=== PATIENT | male | born 1980 | race Caucasian/White ===

== ENCOUNTER 2023-11-27 15:03 | Emergency (ER) | payer OTHER, SELFPAY ==
[2023-11-27 15:23] VITALS: BP 114/79; PULSE 78; O2SAT 94
--- NOTE | 2023-11-27 15:27 | ED.OVERDOSE ---
HPI - Overdose General Chief Complaint: Overdose Stated Complaint: FOUND ASLEEP ON BENCH,ETOH/SUBS ON BOARD PER EMS Time Seen by Provider: 11/27/23 15:20 Source: EMS Mode of arrival: EMS Limitations: other History of Present Illness HPI Narrative: According to EMS, patient was found sleeping by bystanders on a bench. Patient very somnolent but arousable, patient admits to using drugs. Patient states that he thought he purchased oxycodone from the street but likely in the up being a different kind of substance. Patient denies SI or HI. Patient states that he was just trying to enjoy his day. Related Data Allergies Allergy/AdvReac Type Severity Reaction Status Date / Time ibuprofen [From MOTRIN] Allergy Severe BLEEDING Unverified 07/09/20 19:38 ULCER Review of Systems Review of Systems: Constitutional : No Weight loss, No Fever, No Chills, No Night Sweats, No Fatigue, No Malaise ENT/Mouth : No Hearing loss, No Ear Pain, No Nasal Congestion, No Sinus Pain, No Hoarseness, No sore throat, No Rhinorrhea, No Swallowing Difficulty Eyes: No Eye Pain, No Swelling, No Redness, No Foreign Body, No Discharge, No Vision Changes Cardiovascular : No Chest Pain, No SOB, No Dyspnea on Exertion, No Orthopnea, No Edema, No Palpitations Respiratory : No Cough, No Sputum, No Wheezing, No Smoke Exposure, No Dyspnea Gastrointestinal : No Nausea, No Vomiting, No Diarrhea, No Constipation, No abdominal Pain, No Hematochezia, No Melena Genitourinary : no irregular bleeding, No Dysuria, No Urinary Frequency, No Hematuria, No Urinary Incontinence, No Urgency, No Flank Pain, No Urinary Flow Changes, No Hesitancy Musculoskeletal : No joint pain, No Myalgias, No Joint Swelling Skin : No Skin Lesions, No rash Neuro : No Weakness, No Numbness, No Paresthesias, No Loss of Consciousness, No Dizziness, No Headache Psych : Denies SI or HI, admits to substance abuse Heme/Lymph: No Bruising, No Bleeding,No Lymphadenopathy Endocrine : No Polyuria, No Polydipsia, No Temperature Intolerance PMFSH Past Medical History Medical History (Updated 11/27/23 @ 15:34 by Mila Alberts MD) Polysubstance abuse Social History Social History Advance Directives: No Advance Directives Information Provided: No Physical Exam Vital Signs: Vital Signs: Last Vital Signs Pulse 68 11/27/23 15:40 Resp 16 11/27/23 15:40 BP 128/87 11/27/23 15:40 Pulse Ox 98 11/27/23 15:40 O2 Del Method Nasal Cannula 11/27/23 15:40 Oxygen Flow Rate 2 11/27/23 15:40 BMI result Body Mass Index 25.4 Const: Other: Appearance: Alert. Very somnolent, easily arousable Eyes: Pupils equal, round and reactive to light. Pinpoint pupils bilaterally, reactive to light ENT: Pharynx normal. Neck: Normal inspection. Neck supple. No lymph nodes noted. No crepitus CVS: Normal heart rate and rhythm. Pulses normal. Normal S1 and S2 Respiratory: No respiratory distress. Breath sounds normal. No Wheezing. No rales oxygen saturation drops to 83% on 4 L nasal cannula, when asked to wake up, oxygen saturation returns to 99% Abdomen: Soft and nontender. No rigidity. No distention. Skin: Skin warm and dry. Normal skin color. Normal skin turgor. Extremities: No lower extremity edema. No Lacerations. No Rash Neuro: Somnolent Moving all extremities. No slurred speech. CN 2 through 12 grossly intact Psych: calm, cooperative Course Course Course Narrative: -patient being changed over to hospital close -patient very somnolent, when he falls asleep, oxygen saturation drops to the low 80s, patient on 4 L of oxygen -I discussed with the patient's nurse that if the patient keeps dropping his oxygen saturation, he will need to be given Narcan intranasal -CARE/SUDE eval pending -when patient is ready for discharge, patient will be given home Narcan. Medical Decision Making Medical Decision Making MDM Narrative: -patient has been in the emergency room for almost 2 hours. Oxygen saturation 94-96% on room air. Patient is alert oriented x3. Patien states that he does not want to be seen by the care team, will accept to take home Narcan. -discussed with the patient that given how he arrived to emergency room, we should keep him a bit longer. Patient did not get any Narcan, patient states that he feels well and would like to be discharged home. Differential Diagnosis Differential Diagnoses: The differential diagnosis associated with the presentation includes (Polysubstance abuse) Admission/Observation Consideration of admission/observation: Escalation of care including admission/observation considered (Patient's oxygen saturation keeps dropping, needs nasal cannula assistance, admission considered) Critical Care Time Critical Care Time Critical Care Time: Yes Total Critical Care Time: 60 Attestation: I have personally provided critical care time. Time includes review of lab data, radiology results, discussion with consultants, and monitoring for potential decompensation. Intervention performed as documented. Discharge Plan Discharge Clinical Impression: Overdose Patient Disposition: Left Against Medical Advice Instructions: Adult Overdose (ED) Additional Instructions: Please follow-up with your primary care physician tomorrow. If you have any worsening or new symptoms, please return to the emergency room or call 911
[2023-11-27 15:40] VITALS: BP 128/87; PULSE 68; RESP 16; O2SAT 98; BMI 25.4
[2023-11-27 16:00] VITALS: BP 147/88; PULSE 86; RESP 12; TEMP 36.6; O2SAT 99
--- NOTE | 2023-11-27 16:03 | MHC.RECOVRN ---
Attempted to meet with pt in ED11 after consult placed for SUDE. Pt brought in by EMS after bystander called bc pt found sleeping on a bench in [place]. Reportedly, pt used Klonopin, Percocet, alcohol, and marijuana. Pt sitting in bed, quite somnolent but will wake to voice. Pt unable to engage in conversation as he repeatedly falls back to sleep. Pt upset he is in the hospital. Pt reports he was in recovery for 9 months and used today to take a break from life. Pt unable to continue conversation. Pts RN and CARE Team aware.
--- NOTE | 2023-11-27 18:18 | PC.NURSE ---
Pt d/c from hospital via police custody
== END 2023-11-27 18:19 | disposition left against medical advice (07) ==
PROVIDERS: Emergency Provider Emergency Medicine
DX: T40.2X1A Poisoning by other opioids, accidental (unintentional), initial encounter (principal); Y92.9 Unspecified place or not applicable
CPT/HCPCS: 99284

== ENCOUNTER 2024-01-30 11:24 | Emergency (ER) | payer OTHER, SELFPAY ==
[2024-01-30 11:45] VITALS: BP 149/94; PULSE 116; O2SAT 96; BMI 25.8
--- NOTE | 2024-01-30 11:56 | PC.NURSE ---
Pt presents to ED via EMS. EMS reports PD found pt unresponsive and not breathing, was administered 8mg of narcan via IN by PD and ventilated with BVM by EMS. Pt admitted to using 1 bag of heroin to EMS. Pt is alert and oriented at this time, breathing even and unlabored, WNL. Skin warm and dry. Pt is uncooperative to any vitals, assessment and change room attendant, refusing adamantly. Dr. Aldrich and 2 RNs attempted to talk to and assess pt. Pt continued to say he does not want to be here, agreed to stay for 30 mins obs. Pt becomes agitated, more calm when left alone. RN watching pt, remains alert and breathing normal at this time. [employer] narcotic officer at bedside with pt for brief period of time.
[2024-01-30 12:08] VITALS: RESP 16
--- NOTE | 2024-01-30 12:12 | PC.NURSE ---
Pt continues to sit on edge of bed and look around. Remains alert with normal resp drive. No changes in status at this time. Pt continues to refuse vitals or further assessment.
--- NOTE | 2024-01-30 12:13 | ED.OVERDOSE ---
HPI - Overdose General Chief Complaint: Overdose Stated Complaint: OD,NARCAN GIVEN W/GOOD RESULT PER EMS Time Seen by Provider: 01/30/24 11:31 Source: patient and EMS Mode of arrival: EMS Limitations: no limitations History of Present Illness HPI Narrative: patient received 8mg of narcan by police after having an opiate overdose, patient only willing to stay 1 hour for observation complaint: accidental overdose Onset (ago): minute(s) Context: Accidental Overdose: wanted to get high Related Data Allergies Allergy/AdvReac Type Severity Reaction Status Date / Time ibuprofen [From MOTRIN] Allergy Severe BLEEDING Unverified 01/30/24 11:55 ULCER Review of Systems Review of Systems: Yes all other systems are reviewed and are negative Neurologic: Denies Sensory deficit (Neuro) PMFSH Past Medical History Medical History Polysubstance abuse Social History Social History Unable to assess alcohol history related to: Refusing to respond Advance Directives: No Physical Exam Vital Signs: Vital Signs: Last Vital Signs Resp 15 01/30/24 12:20 BMI result Body Mass Index 25.8 Const: Other: male looking unkept and older than stated age Nutritional Appearance: average body habitus Orientation/consciousness: oriented to person and patient oriented x3 Limitations: no limitations HEENT: Head: Yes normal to inspection Ears: external ears normal General nose exam: Normal external nose present Mouth: Normal oral and palatal mucosa present and oropharynx normal Throat: Yes posterior oropharynx normal Eyes: General: appearance normal, both eyes and all related structures Neck: Other: supple Neck: Yes normal visual inspection Chest: Chest palpation & inspection: normal inspection of the chest Resp: Auscultation: clear to auscultation bilaterally Cardio: Jugular venous distension: no JVD Rate: regular rate Rhythm: regular rhythm Heart sounds: S1 normal heart sound present and S2 normal heart sound present GI: Inspection: Yes normal to inspection Palpation (GI): Soft to palpation, nontender and No hepatosplenomegaly present Auscultation: normal bowel sounds : General: Yes no CVA tenderness Back/Spine/Pelvis: Back: no CVA tenderness Skin: General skin exam: no rashes or lesions noted Neuro: General: oriented to person and patient oriented x3 Cranial nerves: Yes CN's II-XII intact bilaterally Motor exam (neuro): 5/5 motor strength present throughout Sensory Exam: No Sensory deficit (Neuro) Extrem: General: Yes normal to inspection Psych: Appearance: grossly normal Course Reevaluation(s) Reevaluation #1: patient has remained awake will give narcan to go home with Time: 12:17 Medical Decision Making Differential Diagnosis Differential Diagnoses: The differential diagnosis associated with the presentation includes (opiate overdose, respiratory arrest) Admission/Observation Consideration of admission/observation: Escalation of care including admission/observation considered (upon arrival patient considered for admission) Consult Healthcare Provider Management of the patient was discussed with: Behavioral Health Provider External Record Review External record reviewed: Outpatient record Prescription Management I considered prescription management with: Other (will discharge patient with narcan) Chronic Conditions Patient?s care impacted by: Other (polysubstance abuse) Social Determinants Patient?s care significantly limited by Social Determinants of Health including: Low income and Alcoholism and drug addiction in family Discharge Plan Discharge Clinical Impression: Polysubstance abuse, Drug overdose Patient Disposition: Home, Self-Care Instructions: Polysubstance Abuse (ED), Adult Overdose (ED) Referrals: Physician,Unknown J [Primary Care Provider] - 3 days Print Language: [place]
[2024-01-30 12:20] VITALS: RESP 15
[2024-01-30] MEDS: Ondansetron ODT 4 MG TAB.RAPDIS TRANSLINGU (12:27)
[2024-01-30] MEDS: Naloxone HCl Nasal TAKE HOME 4 MG SPRAY 8 MG NOSTRILALT (12:27)
--- NOTE | 2024-01-30 12:27 | PC.NURSE ---
Pt allows for vitals at this time. Denies any SI or HI. Reports he took one bag of heroin today and doesn't understand how this happened. Pt reports complaints of nausea and throat pain 3/, medicated per MAR, VSS, Pt alert and oriented, reports he does not want to stay any longer.
[2024-01-30 12:29] VITALS: BP 131/91; PULSE 99; RESP 17; TEMP 37.1; O2SAT 96
== END 2024-01-30 13:20 | disposition home or self-care (01) ==
PROVIDERS: Emergency Provider Emergency Medicine
DX: F19.10 Other psychoactive substance abuse, uncomplicated (principal); T65.91XA Toxic effect of unspecified substance, accidental (unintentional), initial encounter; Y92.9 Unspecified place or not applicable
CPT/HCPCS: 99283; 99284

== ENCOUNTER 2024-01-31 03:16 | Inpatient (IN) | payer OTHER, SELFPAY ==
[2024-01-31] VITALS (13 sets, daily range): BP systolic 103–155; BP diastolic 73–91; PULSE 91–117; RESP 12–25; TEMP 36.3–37.8; O2SAT 79–97; BMI 27.4
--- NOTE | ~2024-01-31 | CT_ITS ---
EXAMINATION: CT HEAD WITHOUT CONTRAST CLINICAL INFORMATION: Altered mental status, opiate overdose, complains of headache COMPARISON: None available. TECHNIQUE: Contiguous axial imaging was performed from the skull base to vertex without intravenous administration of contrast. This CT examination was performed using dose optimization techniques as appropriate, variously including the following: *Automated exposure control *Adjustment of mA and/or kV according to patient size (this includes techniques or standardized protocols for targeted exams where dose is matched to indication/reason for exam; i.e. extremities or head) *Use of iterative reconstruction technique DLP: 1189.28 mGy-cm FINDINGS: Ventricles, sulci and cisterns are normal. There is no midline shift, no abnormal intra- or extra- axial fluid accumulation. Cabrera and white matter differentiation is normal. Bone window images show no evidence of skull fracture. A prominent air-fluid level is seen filling the posterior half of right maxillary sinus. CT/CT head/brain wo IV con IMPRESSION: 1. Normal CT scan of the brain. 2. No intracranial hemorrhage or skull fracture is seen. 3. No evidence of space occupying lesion could be found. 4. The current plain CT scan of the brain shows no diagnostic evidence of acute cerebral infarction. 5. Acute right maxillary sinusitis is seen.
--- NOTE | ~2024-01-31 | CT_ITS ---
EXAMINATION: CT ANGIOGRAM OF THE CHEST WITH AND WITHOUT CONTRAST (CT PULMONARY ANGIOGRAM FOR PE) CLINICAL INFORMATION: Reason for Exam Opiate overdose, hypoxic R/O pneumonia, PE COMPARISON: None available. TECHNIQUE: Prior to contrast administration, noncontrast localization images were obtained. Subsequently, multidetector volumetric imaging was performed from the thoracic inlet to below the diaphragms following the administration of 65 mL Omnipaque 350 intravenous contrast. No contrast reaction reported Sagittal, coronal, and MIP oblique sagittal reformatted images were obtained on the CT workstation, uploaded to PACS, and reviewed. This CT examination was performed using dose optimization techniques as appropriate, variously including the following: *Automated exposure control *Adjustment of mA and/or kV according to patient size (this includes techniques or standardized protocols for targeted exams where dose is matched to indication/reason for exam; i.e. extremities or head) *Use of iterative reconstruction technique Total exam dose-length product 513 mGy-cm FINDINGS: Motion artifact technically degrades image quality. QUALITY OF STUDY/CONTRAST BOLUS: Suboptimal. PULMONARY ARTERIES: No central filling defect seen. THORACIC AORTA: No aneurysm. LUNG: Extensive multifocal bilateral airspace disease and consolidation involving all 5 lobes. There is evidence of air bronchograms in the right upper lobe, right middle lobe and right lower lobe.. Central airways are patent. PLEURA: Small bilateral pleural effusions. MEDIASTINUM: Imaged thyroid gland is heterogeneous. Normal heart size. No pericardial effusion. No hilar or mediastinal lymphadenopathy. No evidence of septal bowing or right heart strain. CORONARY ARTERY CALCIFICATION: None visualized on this study. CHEST WALL/AXILLA: No axillary or internal mammary lymphadenopathy. OSSEOUS STRUCTURES: No destructive bone lesions. UPPER ABDOMEN: Marked gastric distention. 1.4 cm splenic hypodensity. No reflux of contrast into the hepatic veins to suggest elevated right heart pressures. CT/CT angio chest PE protocol IMPRESSION: Technically limited study due to motion artifact and suboptimal contrast bolus timing. Widespread severe multifocal pneumonia. Small bilateral pleural effusions. Marked gastric distention. VTE: indeterminate
[2024-01-31 03:22] LABS: Glucose, Whole Blood 267 mg/dL (60-115)
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
--- NOTE | 2024-01-31 07:21 | PC.NURSE ---
this RN resumed care of pt at this time. tech found pt to be satting at 79% on RA w/ a good pleth on the monitor and a correct position of finger probe. per previous RN, pt was resting at 93% on 4L via NC. NC was found on the back of the bed - when asking pt why he removed NC - he states that he does not know. pt placed on 6L via NC at this time - resting at 94%. no sob/wob noted. pt seemingly lethargic when responding to questions. a&ox2 - unaware on where he is or what year it is. otherwise vss aside from being slightly sinus tach on the monitoring manager - HR between 100-110. pt resting comfortably in bed w/ oxygen in place. respirations even and unlabored. ED provider aware of situation. plan of care ongoing. call chavarria placed within reach.
--- NOTE | 2024-01-31 07:30 | ECG_ITS ---
Test Reason : ams Blood Pressure : / mmHG Vent. Rate : 110 BPM Atrial Rate : 110 BPM P-R Int : 146 ms QRS Dur : 092 ms QT Int : 338 ms P-R-T Axes : 000 147 -14 degrees QTc Int : 457 ms Sinus tachycardia Left posterior fascicular block Abnormal QRS-T angle, consider primary T wave abnormality Abnormal ECG No previous ECGs available Referred By: Samy Dejesus Electronically Signed By:YOLI SCOTT MD
[2024-01-31 08:06] LABS: Venous Blood Gas Refer to POC result
[2024-01-31 08:07] LABS: VBG Base Excess -2.2 mmol/L; VBG HCO3 23 mmol/L (22-26); VBG pCO2 43 mmHg; VBG pH 7.34 (7.32-7.43); VBG pO2 53 mmHg
[2024-01-31 08:25] LABS: B Type Natriuretic Peptide 20 pg/mL (<100)
[2024-01-31 08:26] LABS: Troponin-I High Sensitivity 19.5 ng/L (<3.5-35.0)
[2024-01-31] MEDS: 0.9 % Sodium Chloride 1,000 ML 999 ML IV (08:41)
[2024-01-31] MEDS: Piperacillin Sodium/Tazobactam 4.5 GM in 0.9 % Sodium Chloride 100 ML IV ×3 (09:10→20:52)
--- NOTE | 2024-01-31 09:15 | PC.NURSE ---
delay in abx administration d/t pt being a difficult stick - abx now administered per provider order. pt remains at 6L via NC - resting at 95%. no sob/wob noted. pt positioned upright to promote patent airway. respirations remain even and unlabored. pt waiting to go to CT. plan of care ongoing. call chavarria placed within reach.
[2024-01-31 09:44] LABS: Basophils Absolute Auto 0.1 X10*3/uL (0.0-0.2); Basophils Percent Auto 0.4 % (0-2); Eosinophils Percent Auto 0.1 % (0-4); Hematocrit 43.3 % (42.0-52.0); Hemoglobin 14.2 g/dl (14.0-18.0); Imm Gran Abs Auto 0.07 X10*3/uL (0.00-0.03); Imm Gran Pct Auto 0.4 % (0.0-0.4); Lymphocytes Absolute Auto 0.9 X10*3/uL (1.2-4.9); Lymphocytes Percent Auto 4.6 % (20-40); MANUAL DIFF FLAG SCAN; Mean Corpuscular HGB Conc 32.8 g/dl (31.0-36.0); Mean Corpuscular Hemoglobin 31.3 pg (27.0-33.0); Mean Corpuscular Volume 95.6 fL (80.0-98.0); Mean Platelet Volume 11.8 fL (9.4-12.4); Monocytes Absolute Auto 0.8 X10*3/uL (0.1-1.2); Neutrophils Absolute Auto 17.4 x10*3/uL (2.0-8.3); Neutrophils Percent Auto 90.5 % (45-73); Platelet Count 154 X10*3/uL (160-400); Red Blood Count 4.53 X10*6/uL (4.60-5.80); Red Cell Distribution Width 14.2 % (11.0-16.0); SCAN SMEAR FLAG 1; White Blood Count 19.2 X10*3/uL (4.8-10.8)
[2024-01-31] MEDS: LORazepam 2 MG/ML VIAL 1 MG IVPUSH (10:01)
--- NOTE | 2024-01-31 10:05 | PC.NURSE ---
pt remains sinus tachy on the automation developer - HR between 11-=120 bpm. denies chest pain/palpations. medication administered per provider order - effectiveness pending. pt speaking with recovery support RNSondra at this time. plan of care ongoing.
[2024-01-31 10:10] LABS: Partial Thromboplastin Time 31.1 SEC (26.0-36.8)
--- NOTE | 2024-01-31 11:00 | MHC.RECOVRN ---
Met with patient in room 6 in ED. Patient was alert but not oriented to situation. He expressed interest in MAT and outpatient services, I will meet with patient when he is more oriented today for a plan. Discussed with Kelly Parrish APRN
[2024-01-31 11:33] LABS: SLIDE REVIEW VERIFIED
--- NOTE | 2024-01-31 11:43 | PC.NURSE ---
pt remains sinus tachy on the playground monitor - HR between 110-120bpm. otherwise vss. pt is a 1:1 assist when ambulating to the bathroom as pt ambulates w/ an unsteady gait. pt verbalizes feeling sob w/ exertion. slight sob/wob noted while ambulating. pt now resting comfortably back in bed. pt remains on 6L via NC - 91%. respirations even and slightly labored. urine obtained/sent to lab. pt waiting to go to CT. plan of care ongoing. call chavarria placed within reach.
[2024-01-31 11:48] LABS: Alanine Aminotransferase 15 U/L (0-40); Albumin Level 3.8 g/dL (3.5-5.0); Alkaline Phosphatase 38 U/L (39-117); Aspartate Amino Transferase 17 U/L (5-37); Bilirubin Total 0.4 mg/dL (0.0-1.0); Blood Urea Nitrogen 17 mg/dL (9-16); Carbon Dioxide 20 mmol/L (22-29); Chloride 110 mmol/L (96-108); Creatinine Clr Calc Pharmacy 104.6; Estimated Glomerular Filt Rate > 60; Glucose Random 116 mg/dL (60-115); Lipase 12 U/L (8-78); Potassium 4.4 mmol/L (3.3-5.1); Sodium 139 mmol/L (135-145); Total Protein 6.6 g/dL (6.5-8.0)
[2024-01-31 11:50] LABS: Influenza A PCR NEGATIVE (Negative); Influenza B PCR NEGATIVE (Negative); Resp Syncy Virus RNA Qual PCR NEGATIVE (Negative); SARS COV2 PCR INHOUSE NEGATIVE (Negative)
[2024-01-31 12:05] LABS: Amphetamine Screen Urine Not Detected (Not Detect); Barbiturates, Urine Not Detected (Not Detect); Benzodiazepines Screen Urine POSITIVE (Not Detect); Cannabinoid Screen Urine POSITIVE (Not Detect); Cocaine Screen Urine Not Detected (Not Detect); Fentanyl, urine POSITIVE (Not Detect); Opiate Screen Urine POSITIVE (Not Detect); Phencyclidine Screen Urine Not Detected (Not Detect)
[2024-01-31 12:34] LABS: Anion Gap 14 (12-20)
[2024-01-31] MEDS: iohexoL 350 MG/ML 100 ML INFUS..BTL 65 ML IV (13:00)
--- NOTE | 2024-01-31 13:28 | PC.NURSE ---
pt to/from CT at this time. resting comfortably in no apparent distress. pt remains on 6L via NC - 95%. respirations even/unlabored. CT results pending. plan of care ongoing. call chavarria placed within reach.
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
--- NOTE | 2024-01-31 16:03 | PHA.MEDREC ---
Pharmacy Consult ? Medication Reconciliation Pharmacy has completed the medication reconciliation. Spoke with patient. Patient stated he is no longer on suboxone and is now on subutex, he told me he gets it from a clinic, could not recall the dose. I checked pharmacy claims and PDMP but I could not find anything to support this.
[2024-01-31] MEDS: Enoxaparin Sodium 40 MG/0.4 ML SYRINGE SUBCUT (16:24)
[2024-01-31] MEDS: 0.9 % Sodium Chloride Flush 3 ML SYRINGE IVFLUSH (16:26)
--- NOTE | 2024-01-31 19:27 | MHC.EDTECH ---
This tech took over care of patient at 1900,hourly rounds and vitals completed,HR is elevated at 117,temp is 99.1 orally RN made aware.
--- NOTE | 2024-01-31 19:32 | PC.NURSE ---
Assumed care of pt at 19:32, alert and responding to verbal commands. Denies any complaints @ this time. Pending admission. Plan of care ongoing. VSS.
--- NOTE | 2024-01-31 20:16 | MHC.EDTECH ---
Patient urinated 900MLS in urinal
[2024-01-31] MEDS: cloNIDine HCL 0.1 MG TABLET PO (20:53)
--- NOTE | 2024-01-31 21:12 | MHC.EDTECH ---
Hourly rounds and vitals completed,patient's HR is 115,temp 99.8 orally, patient is resting at this time call chavarria in reach
[2024-02-01] VITALS (7 sets, daily range): BP systolic 110–127; BP diastolic 42–74; PULSE 95–103; RESP 18–20; TEMP 36.1–37.1; O2SAT 92–96; BMI 24.3
--- NOTE | 2024-02-01 | ECG_ITS ---
Test Reason : chest pain Blood Pressure : / mmHG Vent. Rate : 094 BPM Atrial Rate : 094 BPM P-R Int : 148 ms QRS Dur : 094 ms QT Int : 364 ms P-R-T Axes : 067 045 027 degrees QTc Int : 455 ms Normal sinus rhythm Normal ECG When compared with ECG of 31-JAN-2024 07:38, Left posterior fascicular block is no longer Present Nonspecific T wave abnormality, improved in Inferior leads Nonspecific T wave abnormality no longer evident in Lateral leads Referred By: Usha Cazaers Electronically Signed By:Prasanth Loja
[2024-02-01] MEDS: Acetaminophen 325 MG TABLET 650 MG PO (02:25)
[2024-02-01] MEDS: Piperacillin Sodium/Tazobactam 4.5 GM in 0.9 % Sodium Chloride 100 ML IV ×4 (02:44→21:43)
[2024-02-01 07:24] LABS: Basophils Absolute Auto 0.1 X10*3/uL (0.0-0.2); Basophils Percent Auto 0.4 % (0-2); Eosinophils Absolute Auto 0.2 X10*3/uL (0.0-0.4); Hemoglobin 12.8 g/dl (14.0-18.0); Imm Gran Abs Auto 0.18 X10*3/uL (0.00-0.03); Imm Gran Pct Auto 0.8 % (0.0-0.4); Lymphocytes Percent Auto 8.9 % (20-40); MANUAL DIFF FLAG SCAN; Mean Corpuscular HGB Conc 32.8 g/dl (31.0-36.0); Mean Corpuscular Hemoglobin 30.7 pg (27.0-33.0); Mean Corpuscular Volume 93.5 fL (80.0-98.0); Mean Platelet Volume 11.1 fL (9.4-12.4); Monocytes Absolute Auto 1.6 X10*3/uL (0.1-1.2); Monocytes Percent Auto 6.8 % (2-11); Neutrophils Absolute Auto 18.6 x10*3/uL (2.0-8.3); Neutrophils Percent Auto 82.1 % (45-73); Platelet Count 135 X10*3/uL (160-400); Red Blood Count 4.17 X10*6/uL (4.60-5.80); SCAN SMEAR FLAG 1; White Blood Count 22.6 X10*3/uL (4.8-10.8)
[2024-02-01 07:33] LABS: Alanine Aminotransferase 12 U/L (0-40); Albumin Level 3.3 g/dL (3.5-5.0); Alkaline Phosphatase 38 U/L (39-117); Anion Gap 9 (12-20); Aspartate Amino Transferase 13 U/L (5-37); Bilirubin Total 0.5 mg/dL (0.0-1.0); Blood Urea Nitrogen 12 mg/dL (9-16); Calcium 8.2 mg/dL (8.4-10.2); Carbon Dioxide 22 mmol/L (22-29); Chloride 106 mmol/L (96-108); Creatinine Clr Calc Pharmacy 134.8; Estimated Glomerular Filt Rate > 60; Glucose Random 114 mg/dL (60-115); Potassium 3.7 mmol/L (3.3-5.1); Sodium 133 mmol/L (135-145); Total Protein 6.1 g/dL (6.5-8.0)
[2024-02-01 07:39] LABS: SLIDE REVIEW VERIFIED
[2024-02-01] MEDS: cloNIDine HCL 0.1 MG TABLET PO (07:54)
[2024-02-01] MEDS: Morphine Sulfate 2 MG/ML CARTRIDGE IVPUSH (09:13)
--- NOTE | 2024-02-01 09:36 | MHC.CM.PN ---
Kennedy met with pt. he said he is a little confused, talked about staying with a brother who lives in [place], [place], and family that used to live in [place]. He said that he just came out of an addiction treatment program, he cannot recall the name of it. KENNEDY will see the pt later, when he may be able to talk more about what his DC plan will be.
[2024-02-01] MEDS: oxyCODONE HCl Immed Release 5 MG TABLET 10 MG PO ×2 (12:03→18:05)
[2024-02-01] MEDS: vancomycin/NS 2,000 MG/500 ML PLAST..BAG 250 MG IV (12:38)
--- NOTE | 2024-02-01 13:29 | HO.ADDICTCON ---
History of Present Illness Date of Service: 02/01/2024 Chief Complaint: overdose Reason for Consult: overdose Sources of Information: patient interviewed and chart reviewed HPI Narrative: Patient is a 43 year old male medically admitted with pneumonia following overdose requiring narcan. Seen by manual arts therapy teacher yesterday while in ED, however patient not able to engage in discussion--confused and still drowsy. Seen this morning in room 474. Patient awake, alert, minimally engaged in interview. Unclear if patient was being evasive in answering questions or if there is a cognitive/processing issue--very difficult to obtain any history. When asked about any withdrawal sx, patient asked what that meant. This field underwriter explained and then patient replied, no . When asked if he was taking any medications for opiate use, he replied, I don't know where my Klonopin or Gabapentins went . When asked specifically about suboxone or methadone, he reported previously taking Subutex, but then stated it was no longer covered. Unclear what happened. [facility] shows last suboxone fill 09/2023. Patient inquiring about pneumonia, this field underwriter provided brief explanation about overdose as a contributing factor. During entirety of interview, patient reminded to leave NC in as he repeatedly took it off. This field underwriter attempted to ask additional questions, however patient stated, I've had a long day, I'm really tired . Encouraged patient to reach out to nursing if he should experience any withdrawal sx (provided examples). Patient nodded. During evaluation, patient seemed anxious, but not restless. No yawning, diaphoresis, rhinorrhea, lacrimation noted. Medical Evaluation Reviewed: Yes Review of Systems Review of Systems Yes Other (patient non participatory) Diagnostics Vital Signs (24Hr): Vital Signs - 24 hr 01/31/24 16:26 01/31/24 19:25 01/31/24 20:50 Temperature 100.0 F 99.1 F Pulse Rate 117 H 117 H 91 Respiratory Rate 20 22 H Blood Pressure 103/75 132/75 125/82 Pulse Oximetry 91 L 93 Oxygen Delivery Method Nasal Cannula Nasal Cannula Oxygen Flow Rate 6 6 01/31/24 21:09 01/31/24 23:18 02/01/24 04:00 Temperature 99.8 F 99.5 F 97.7 F Pulse Rate 115 H 109 H 103 H Respiratory Rate 22 H 22 H 18 Blood Pressure 124/78 122/81 118/73 Pulse Oximetry 93 94 92 Oxygen Delivery Method Nasal Cannula Nasal Cannula Nasal Cannula Oxygen Flow Rate 6 6 6 02/01/24 06:51 02/01/24 07:01 02/01/24 11:25 Temperature 98.8 F 97.1 F 97.0 F Pulse Rate 100 95 95 Respiratory Rate 20 20 20 Blood Pressure 110/71 116/67 117/74 Pulse Oximetry 95 94 94 Oxygen Delivery Method Nasal Cannula Nasal Cannula Nasal Cannula Oxygen Flow Rate 6 5 5 BMI result Body Mass Index 24.3 Labs 02/01/24 06:55 02/01/24 06:55 Labs: Laboratory Results - last 48 hr 01/31/24 01/31/24 01/31/24 03:16 07:53 08:00 WBC RBC Hgb Hct MCV MCH MCHC RDW Plt Count MPV Immature Gran % (Auto) Neut % (Auto) Lymph % (Auto) [place] % (Auto) Eos % (Auto) Baso % (Auto) Lymph # (Auto) [place] # (Auto) Eos # (Auto) Baso # (Auto) Abs Immat Gran (auto) Absolute Neuts (auto) Absolute Nucleated RBC Nucleated RBC % (auto) Smear Tech's Comments Hold Purple Top APTT VBG pH 7.34 VBG pCO2 43 VBG pO2 53 VBG HCO3 23 VBG O2 Saturation 87.0 VBG Base Excess -2.2 Sodium Potassium Chloride Carbon Dioxide Anion Gap BUN Creatinine Estim Creat Clear Calc Estimated GFR POC Glucose 267 H Random Glucose Lactic Acid 2.0 Calcium Total Bilirubin AST ALT Alkaline Phosphatase Troponin I High Sens 19.5 B-Natriuretic Peptide 20 Total Protein Albumin Lipase Urine Opiates Screen Urine Fentanyl Screen Ur Barbiturates Screen Ur Phencyclidine Scrn Ur Amphetamines Screen U Benzodiazepines Scrn Urine Cocaine Screen U Marijuana (THC) Screen Influenza Type A (PCR) NEGATIVE Influenza Type B (PCR) NEGATIVE RSV RNA Qual (PCR) NEGATIVE SARS-CoV-2 RNA (RT-PCR) NEGATIVE 01/31/24 01/31/24 01/31/24 09:35 09:48 11:23 WBC 19.2 H RBC 4.53 L Hgb 14.2 Hct 43.3 MCV 95.6 MCH 31.3 MCHC 32.8 RDW 14.2 Plt Count 154 L MPV 11.8 Immature Gran % (Auto) 0.4 Neut % (Auto) 90.5 H Lymph % (Auto) 4.6 L [place] % (Auto) 4.0 Eos % (Auto) 0.1 Baso % (Auto) 0.4 Lymph # (Auto) 0.9 L [place] # (Auto) 0.8 Eos # (Auto) 0.0 Baso # (Auto) 0.1 Abs Immat Gran (auto) 0.07 H Absolute Neuts (auto) 17.4 H Absolute Nucleated RBC 0.000 Nucleated RBC % (auto) 0.0 Smear Tech's Comments VERIFIED Hold Purple Top SEE NOTE APTT 31.1 VBG pH VBG pCO2 VBG pO2 VBG HCO3 VBG O2 Saturation VBG Base Excess Sodium 139 Potassium 4.4 Chloride 110 H Carbon Dioxide 20 L Anion Gap 14 BUN 17 H Creatinine 0.89 Estim Creat Clear Calc 104.6 Estimated GFR > 60 POC Glucose Random Glucose 116 H Lactic Acid Calcium 8.0 L Total Bilirubin 0.4 AST 17 ALT 15 Alkaline Phosphatase 38 L Troponin I High Sens B-Natriuretic Peptide Total Protein 6.6 Albumin 3.8 Lipase 12 Urine Opiates Screen Urine Fentanyl Screen Ur Barbiturates Screen Ur Phencyclidine Scrn Ur Amphetamines Screen U Benzodiazepines Scrn Urine Cocaine Screen U Marijuana (THC) Screen Influenza Type A (PCR) Influenza Type B (PCR) RSV RNA Qual (PCR) SARS-CoV-2 RNA (RT-PCR) 01/31/24 02/01/24 11:46 06:55 WBC 22.6 H RBC 4.17 L Hgb 12.8 L Hct 39.0 L MCV 93.5 MCH 30.7 MCHC 32.8 RDW 14.0 Plt Count 135 L MPV 11.1 Immature Gran % (Auto) 0.8 H Neut % (Auto) 82.1 H Lymph % (Auto) 8.9 L [place] % (Auto) 6.8 Eos % (Auto) 1.0 Baso % (Auto) 0.4 Lymph # (Auto) 2.0 [place] # (Auto) 1.6 H Eos # (Auto) 0.2 Baso # (Auto) 0.1 Abs Immat Gran (auto) 0.18 H Absolute Neuts (auto) 18.6 H Absolute Nucleated RBC 0.000 Nucleated RBC % (auto) 0.0 Smear Tech's Comments VERIFIED Hold Purple Top APTT VBG pH VBG pCO2 VBG pO2 VBG HCO3 VBG O2 Saturation VBG Base Excess Sodium 133 L Potassium 3.7 Chloride 106 Carbon Dioxide 22 Anion Gap 9 L BUN 12 Creatinine 0.76 Estim Creat Clear Calc 134.8 Estimated GFR > 60 POC Glucose Random Glucose 114 Lactic Acid Calcium 8.2 L Total Bilirubin 0.5 AST 13 ALT 12 Alkaline Phosphatase 38 L Troponin I High Sens B-Natriuretic Peptide Total Protein 6.1 L Albumin 3.3 L Lipase Urine Opiates Screen POSITIVE H Urine Fentanyl Screen POSITIVE H Ur Barbiturates Screen Not Detected Ur Phencyclidine Scrn Not Detected Ur Amphetamines Screen Not Detected U Benzodiazepines Scrn POSITIVE H Urine Cocaine Screen Not Detected U Marijuana (THC) Screen POSITIVE H Influenza Type A (PCR) Influenza Type B (PCR) RSV RNA Qual (PCR) SARS-CoV-2 RNA (RT-PCR) Imaging Radiology Impressions: ITS Impressions Chest CTA 01/31/24 13:05 IMPRESSION: Technically limited study due to motion artifact and suboptimal contrast bolus timing. Widespread severe multifocal pneumonia. Small bilateral pleural effusions. Marked gastric distention. VTE: indeterminate Head CT 01/31/24 13:05 IMPRESSION: 1. Normal CT scan of the brain. 2. No intracranial hemorrhage or skull fracture is seen. 3. No evidence of space occupying lesion could be found. 4. The current plain CT scan of the brain shows no diagnostic evidence of acute cerebral infarction. 5. Acute right maxillary sinusitis is seen. Mental Status Exam Mental Status Exam Patient Appearance: Appropriate Level of Consciousness: Awake and Alert Patient Behavior: Guarded Mood Description: Anxious Affect Description: Anxious Speech Pattern: Clear Medications Medications Current Medications Acetaminophen (Acetaminophen 325 Mg Tablet) 650 mg PO Q6H PRN PRN Reason: Pain, Mild (Pain Scale 1-3) Last Admin: 02/01/24 02:25 Dose: 650 mg Albuterol Sulfate (Albuterol Sulfate (0.083%) 2.5 Mg/3 Ml Vial.Neb) 2.5 mg INHALE Q6H PRN PRN Reason: wheezing Clonidine HCl (Clonidine Hcl 0.1 Mg Tablet) 0.1 mg PO BID RUSSELL; Protocol Last Admin: 02/01/24 07:54 Dose: 0.1 mg Enoxaparin Sodium (Enoxaparin Sodium 40 Mg/0.4 Ml Syringe) 40 mg SUBCUT Q24H [facility]SELL Last Admin: 01/31/24 16:24 Dose: 40 mg Piperacillin Sod/Tazobactam (Sod 4.5 gm/ Sodium Chloride) 100 mls @ 200 mls/hr IV Q6H [facility] Last Infusion: 02/01/24 09:14 Dose: Infused Vancomycin HCl (Vancomycin/Ns) 2,000 mg in 500 mls @ 250 mls/hr IV ONCE ONE Stop: 02/01/24 13:59 Last Admin: 02/01/24 12:38 Dose: 250 mls/hr Lorazepam (Lorazepam 0.5 Mg Tablet) 0.25 mg PO Q8H PRN PRN Reason: anxiety/restlessness Ondansetron HCl (Ondansetron Hcl 4 Mg/2 Ml Vial) 4 mg IVPUSH Q8H PRN PRN Reason: Nausea and Vomiting Oxycodone HCl (Oxycodone Hcl Immed Release 5 Mg Tablet) 10 mg PO Q6H PRN PRN Reason: withdrawal Last Admin: 02/01/24 12:03 Dose: 10 mg Pharmacy Consult (Consult Rx Vancomycin Dosing) 1 each MISCELLANE DAILY PRN PRN Reason: Consult order Sodium Chloride (0.9 % Sodium Chloride Flush 3 Ml Syringe) 3 ml IVFLUSH [facility] Last Admin: 02/01/24 07:54 Dose: Not Given Allergies Allergies Allergy/AdvReac Type Severity Reaction Status Date / Time ibuprofen [From MOTRIN] Allergy Severe BLEEDING Verified 01/31/24 03:19 ULCER Assessment & Plan Assessment & Plan (1) Narcotic overdose: Qualifiers: Encounter type: initial encounter Injury intent: accidental or unintentional Qualified Code(s): T40.601A - Poisoning by unspecified narcotics, accidental (unintentional), initial encounter Status: Acute Code(s): T40.601A - Poisoning by unspecified narcotics, accidental (unintentional), initial encounter Assessment and Plan: no recommendations at this time aside from monitoring for withdrawal and treating sx as apporpriate patient unknown to this field underwriter, unclear baseline will check back in tomorrow morning or sooner if requested Total time managing care of this patient today __30__ minutes. [facility] Past Medical History Medical History Polysubstance abuse Family History Family History (Updated 01/31/24 @ 15:58 by Dorothy Feliciano, [employer] INVESTIGATOR) Paternal Grandfather Prostate cancer Surgical History Surgical History H/O tooth extraction Social History Social History Housing: Homeless Housing Other:: was in place for treatment unable to recall Do you presently have visiting nurse or other home services: No Unable to assess alcohol history related to: Refusing to respond Patient Tobacco Use Status: Current everyday Tobacco user Tobacco use type: Cigarette and Smokeless Tobacco Cigarette Packs Per Day: 2 Cigarettes Per Day: 40.0 Years Smoked: 30 e-Cigarette/Vaping Use: Currently Using Second Hand Smoke Exposure: Yes Substance Use Type: Marijuana service: No
--- NOTE | 2024-02-01 13:33 | HO.PM.IMPN ---
Subjective Subjective Date of Service: 02/01/24 Interval History: seen and examined this morning follow up for multifocoal pneumonia reporting pleuritic chest discomfort. no sob Review of Systems Review of Systems: Yes all other systems are reviewed and are negative Constitutional Constitutional: Denies chills and Denies fever(s) Cardiovascular Cardiovascular: Denies palpitations and Denies dyspnea on exertion Respiratory Respiratory: Denies dyspnea on exertion Endocrine Endocrine: Denies palpitations Physical Exam Vital Signs: Vital Signs: Last Vital Signs Temp 97.0 F 02/01/24 11:25 Pulse 95 02/01/24 11:25 Resp 20 02/01/24 11:25 BP 117/74 02/01/24 11:25 Pulse Ox 94 02/01/24 11:25 O2 Del Method Nasal Cannula 02/01/24 11:25 O2 Flow Rate 5 02/01/24 11:25 Oxygen Flow Rate 2 01/31/24 03:16 BMI result Body Mass Index 24.3 Const: General: alert and awake Nutritional Appearance: average body habitus Orientation/consciousness: patient oriented x3 Resp: Other: no wheezes Effort & Inspection: normal respiratory effort, able to speak in complete sentences, no respiratory distress and no use of accessory muscles Cardio: Rate: regular rate GI: Inspection: No distended Palpation (GI): Soft to palpation and nontender Neuro: General: patient oriented x3, No moves all extremities and No CN's II-XI intact bilaterally Extrem: General: Yes no pedal edema Objective Data Active Medications Acetaminophen (Acetaminophen 325 Mg Tablet) 650 mg PO Q6H PRN PRN Reason: Pain, Mild (Pain Scale 1-3) Last Admin: 02/01/24 02:25 Dose: 650 mg Documented By: NIEVES Albuterol Sulfate (Albuterol Sulfate (0.083%) 2.5 Mg/3 Ml Vial.Neb) 2.5 mg INHALE Q6H PRN PRN Reason: wheezing Clonidine HCl (Clonidine Hcl 0.1 Mg Tablet) 0.1 mg PO BID [facility]; Protocol Last Admin: 02/01/24 07:54 Dose: 0.1 mg Documented By: DIONE Enoxaparin Sodium (Enoxaparin Sodium 40 Mg/0.4 Ml Syringe) 40 mg SUBCUT Q24H [facility] Last Admin: 01/31/24 16:24 Dose: 40 mg Documented By: HARLEEN Piperacillin Sod/Tazobactam (Sod 4.5 gm/ Sodium Chloride) 100 mls @ 200 mls/hr IV Q6H [facility] Last Infusion: 02/01/24 09:14 Dose: Infused Documented By: DIONE Vancomycin HCl (Vancomycin/Ns) 2,000 mg in 500 mls @ 250 mls/hr IV ONCE ONE Stop: 02/01/24 13:59 Last Admin: 02/01/24 12:38 Dose: 250 mls/hr Documented By: DIONE Lorazepam (Lorazepam 0.5 Mg Tablet) 0.25 mg PO Q8H PRN PRN Reason: anxiety/restlessness Ondansetron HCl (Ondansetron Hcl 4 Mg/2 Ml Vial) 4 mg IVPUSH Q8H PRN PRN Reason: Nausea and Vomiting Oxycodone HCl (Oxycodone Hcl Immed Release 5 Mg Tablet) 10 mg PO Q6H PRN PRN Reason: withdrawal Last Admin: 02/01/24 12:03 Dose: 10 mg Documented By: DIONE Pharmacy Consult (Consult Rx Vancomycin Dosing) 1 each MISCELLANE DAILY PRN PRN Reason: Consult order Sodium Chloride (0.9 % Sodium Chloride Flush 3 Ml Syringe) 3 ml IVFLUSH [facility] Last Admin: 02/01/24 07:54 Dose: Not Given Documented By: DIONE Non-Admin Reason: IV Running Labs 02/01/24 06:55 02/01/24 06:55 Labs: Laboratory Results - last 24 hr 02/01/24 06:55 MCV 93.5 MCH 30.7 MCHC 32.8 RDW 14.0 Plt Count 135 L MPV 11.1 Immature Gran % (Auto) 0.8 H Neut % (Auto) 82.1 H Lymph % (Auto) 8.9 L [place] % (Auto) 6.8 Eos % (Auto) 1.0 Baso % (Auto) 0.4 Lymph # (Auto) 2.0 [place] # (Auto) 1.6 H Eos # (Auto) 0.2 Baso # (Auto) 0.1 Abs Immat Gran (auto) 0.18 H Absolute Neuts (auto) 18.6 H Absolute Nucleated RBC 0.000 Nucleated RBC % (auto) 0.0 Smear Tech's Comments VERIFIED Anion Gap 9 L Estim Creat Clear Calc 134.8 Estimated GFR > 60 Random Glucose 114 Calcium 8.2 L Total Bilirubin 0.5 AST 13 ALT 12 Alkaline Phosphatase 38 L Total Protein 6.1 L Albumin 3.3 L Microbiology Microbiology Results: Microbiology 01/31/24 09:04 Blood Culture - Preliminary Blood - Venous No growth after 24 hours. 01/31/24 07:53 Blood Culture - Preliminary Blood - Venous No growth after 24 hours. Assessment and Plan (1) Multifocal pneumonia: Status: Acute (2) Narcotic overdose: Status: Acute (3) Polysubstance abuse: Status: Acute Plan This is a 43 year old man admitted after a drug overdose, received narcan but found to be hypoxic, CT with widespread severe multifocal pneumonia Acute respiratory failure and Sepsis secondary to Pneumonia, likely aspiration from overdose white count trending up, will add vanco to zosyn supplemental oxygen as needed, wean as tolerated blood cultures negative to date Polysubstance abuse Addiction medicine consult pending tox screen is positive for opiates, fentanyl, benzodiazepines, marijuana oxycodone, clonidine, ativan prn for withdrawal symptoms hyponatremia mild, 133 follow Elevated blood sugar check A1C DVT prophylaxis with Lovenox Full code Patient will need at least 48hrs for admission for tx of aspiration pna secondary to overdose requiring IV antibiotics and treatment withdrawal Quality Stroke Does the patient have a stroke diagnosis?: No VTE Prior VTE?: No VTE Risk Level:: Medical - moderate - high VTE Device Contraindication: Treatment Not Indicated VTE Drug Contraindication: N/A - Med Ordered
--- NOTE | 2024-02-01 14:39 | PHA.PROG ---
Admission Date/Time: January 31, 2024 15:31 Indication: respiratory infection Weight in k kg Adjusted body weight in K.78 kg [place] body weight in Kg: Obesity Dosing Indication % IBW: BMI 24.3 Serum Creatinine - Last 168 Hours 01/31/24 02/01/24 11:23 06:55 Creatinine 0.89 0.76 Estimated CrCl and GFR - Last 168 Hours 01/31/24 02/01/24 11:23 06:55 Estim Creat Clear Calc 104.6 134.8 Estimated GFR > 60 > 60 Vancomycin Loading Dose: 2000 mg x1 Current Vancomycin Dosing Regimen: 1000 mg Q8H Vancomycin Monitoring using AUC goal of 400 - 600 range with trough as surrogate marker: 585 Date and Time for next Vancomycin Level to be drawn: 02/01 @1100 Pharmacist Comments on Vancomycin Plan: predicted trough 19, to be adjusted based on trough tomorrow and renal function. Vancomycin dosing will take advantage of [employer] as a clinical decision support tool that uses Bayesian modeling to calculate individual patient's pharmacokinetic parameters and forecast the patient's drug concentration time course with the target goal AUC 24 range of 400 - 600 mg/L/hr.
[2024-02-01] MEDS: 0.9 % Sodium Chloride Flush 3 ML SYRINGE IVFLUSH ×3 (15:14→22:41)
[2024-02-01] MEDS: Enoxaparin Sodium 40 MG/0.4 ML SYRINGE SUBCUT (15:14)
[2024-02-01] MEDS: vancomycin HCL 1,000 MG in 0.9 % Sodium Chloride 250 ML 270 MG IV (22:40)
[2024-02-02] MEDS: oxyCODONE HCl Immed Release 5 MG TABLET 10 MG PO (00:32)
[2024-02-02] MEDS: Piperacillin Sodium/Tazobactam 4.5 GM in 0.9 % Sodium Chloride 100 ML IV ×2 (03:34→09:16)
[2024-02-02 04:00] VITALS: BP 117/68; PULSE 90; RESP 16; TEMP 37.3; O2SAT 92
[2024-02-02] MEDS: vancomycin HCL 1,000 MG in 0.9 % Sodium Chloride 250 ML 270 MG IV (05:08)
[2024-02-02 07:22] VITALS: BP 128/81; PULSE 95; RESP 18; TEMP 36.6; O2SAT 95
[2024-02-02] MEDS: buPROPion HCL 100 MG TABLET PO (09:16)
[2024-02-02] MEDS: clonazePAM 1 MG TABLET PO (09:23)
[2024-02-02 10:56] LABS: MANUAL DIFF FLAG NO
[2024-02-02 11:04] LABS: Basophils Percent Auto 0.3 % (0-2); Eosinophils Absolute Auto 0.2 X10*3/uL (0.0-0.4); Eosinophils Percent Auto 1.5 % (0-4); Hematocrit 36.4 % (42.0-52.0); Hemoglobin 12.3 g/dl (14.0-18.0); Imm Gran Abs Auto 0.09 X10*3/uL (0.00-0.03); Imm Gran Pct Auto 0.6 % (0.0-0.4); Lymphocytes Percent Auto 7.2 % (20-40); Mean Corpuscular HGB Conc 33.8 g/dl (31.0-36.0); Mean Corpuscular Hemoglobin 30.8 pg (27.0-33.0); Mean Platelet Volume 12.4 fL (9.4-12.4); Monocytes Absolute Auto 0.8 X10*3/uL (0.1-1.2); Monocytes Percent Auto 5.4 % (2-11); Neutrophils Absolute Auto 12.2 x10*3/uL (2.0-8.3); Platelet Count 141 X10*3/uL (160-400); Red Cell Distribution Width 13.4 % (11.0-16.0); White Blood Count 14.3 X10*3/uL (4.8-10.8)
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
[2024-02-02 11:18] LABS: Anion Gap 11 (12-20); Blood Urea Nitrogen 10 mg/dL (9-16); Calcium 8.6 mg/dL (8.4-10.2); Carbon Dioxide 26 mmol/L (22-29); Chloride 103 mmol/L (96-108); Creatinine Clr Calc Pharmacy 138.5; Estimated Glomerular Filt Rate > 60; Glucose Random 181 mg/dL (60-115); Potassium 3.9 mmol/L (3.3-5.1); Sodium 136 mmol/L (135-145)
[2024-02-02 11:19] VITALS: BP 130/74; PULSE 70; RESP 18; TEMP 36.2; O2SAT 98
--- NOTE | 2024-02-02 12:16 | MHC.RECOVRN ---
Briefly met with pt to follow up, provide support, assess for withdrawal. Pt sitting in bed, awake, alert, difficult to engage in conversation due to requesting to discharge. Pt does not appear uncomfortable. When asked about withdrawal, pt appears confused, denies withdrawal symptoms. Pt denies questions or concerns for t/w, is requesting belongings and discharge paperwork. RN and Kelly Parrish APRN, aware.
[2024-02-02 12:27] LABS: Vancomycin Trough 11.5 mcg/mL (10.0-20.0)
--- NOTE | 2024-02-02 12:46 | MHC.CM.PN ---
Pt has been medically cleared for DC, CM met with him to discuss where he is going and if he needs a ride, he declined, and said he will go on his own. His plan is self, care.
[2024-02-02 13:36] LABS: Estimated Average Glucose 117 mg/dL; Hemoglobin A1c % 5.7 % (<6.0)
== END 2024-02-02 13:00 | disposition home or self-care (01) | DRG 812 ==
LOC: HO.ED 15:04 → HO.EDOVER 15:36 → HO.IMC 02-01 00:26
PROVIDERS: Emergency Medicine Emergency Medical Services; Admitting Provider Nurse Practitioner Acute Care; Emergency Provider Student in an Organized Health Care Education/Training Program; Visit Provider Physician Assistant Medical
DX: T40.601A Poisoning by unspecified narcotics, accidental (unintentional), initial encounter (principal); J96.01 Acute respiratory failure with hypoxia; J69.0 Pneumonitis due to inhalation of food and vomit; A41.9 Sepsis, unspecified organism; D69.6 Thrombocytopenia, unspecified; E87.1 Hypo-osmolality and hyponatremia; F17.210 Nicotine dependence, cigarettes, uncomplicated; Z71.6 Tobacco abuse counseling; Z20.822 Contact with and (suspected) exposure to COVID-19; F19.10 Other psychoactive substance abuse, uncomplicated; Z79.899 Other long term (current) drug therapy
CPT/HCPCS: 0241U; 36415; 70450; 71275; 80048; 80053; 80202; 80307; 82803; 82947; 83036; 83605; 83690; 83880; 84484; 85025; 85730; 87040; 93005; 99285; J1650; J2060; J2270; J2543; J3370; Q9967

== ENCOUNTER → 2024-01-31 07:30 | Outpatient (BNV) | payer OTHER, SELFPAY | PROVIDERS: Emergency Provider Student in an Organized Health Care Education/Training Program; Visit Provider Internal Medicine Cardiovascular Disease | DX: R07.9 Chest pain, unspecified (principal) | CPT/HCPCS: 93010 ==

== ENCOUNTER 2024-01-31 15:31 | Outpatient (BNV) | payer OTHER, SELFPAY | END 2024-02-01 08:25 | PROVIDERS: Admitting Provider Nurse Practitioner Acute Care; Emergency Provider Student in an Organized Health Care Education/Training Program; Visit Provider Internal Medicine Cardiovascular Disease | DX: R07.9 Chest pain, unspecified (principal) | CPT/HCPCS: 93010 ==

== ENCOUNTER → 2024-01-31 15:31 | Outpatient (BNV) | payer OTHER, SELFPAY | PROVIDERS: Admitting Provider Nurse Practitioner Acute Care; Emergency Provider Student in an Organized Health Care Education/Training Program; Visit Provider Nurse Practitioner Acute Care | DX: F19.10 Other psychoactive substance abuse, uncomplicated (principal); T40.601A Poisoning by unspecified narcotics, accidental (unintentional), initial encounter; J18.9 Pneumonia, unspecified organism | CPT/HCPCS: 99223; 99233; 99239 ==

== ENCOUNTER → 2024-01-31 15:31 | Outpatient (BNV) | payer OTHER, SELFPAY | PROVIDERS: Admitting Provider Nurse Practitioner Acute Care; Emergency Provider Student in an Organized Health Care Education/Training Program; Visit Provider Nurse Practitioner Psychiatric/Mental Health | DX: F11.10 Opioid abuse, uncomplicated (principal); T40.601A Poisoning by unspecified narcotics, accidental (unintentional), initial encounter | CPT/HCPCS: 99221 ==

== ENCOUNTER 2024-02-02 18:06 | Emergency (ER) | payer OTHER, SELFPAY ==
[2024-02-02 18:31] VITALS: BP 138/78; BP 160/88; PULSE 110; PULSE 130; RESP 20; TEMP 36.7; O2SAT 90; BMI 25.1
--- NOTE | 2024-02-02 18:35 | ED_ITS ---
HPI - Overdose General Chief Complaint: ETOH/Substance Use Stated Complaint: seen earlier, found unresponsive, narcan by PD Time Seen by Provider: 02/02/24 18:28 Source: patient Mode of arrival: EMS History of Present Illness HPI Narrative: 43-year-old male with known polysubstance use disorder, denies any attempts to kill himself and declines any offerings of detox and states that the bag was simply stronger than what he anticipated. Patient states he wishes to leave now. Related Data Home Medications ?Medication ?Instructions ?Recorded ?Confirmed acetaminophen 325 mg tablet 650 mg PO Q6H PRN pain 01/31/24 01/31/24 bupropion HCl 100 mg tablet 100 mg PO QAM 01/31/24 01/31/24 clonazepam 1 mg tablet 1 mg PO BID PRN anxiety 01/31/24 01/31/24 gabapentin 800 mg tablet 800 mg PO TID 01/31/24 01/31/24 hydroxyzine HCl 25 mg tablet 25 mg PO TID PRN Anxiety 01/31/24 01/31/24 ibuprofen 600 mg tablet 600 mg PO Q6H PRN pain 01/31/24 01/31/24 Previous Rx's ?Medication ?Instructions ?Recorded amoxicillin 875 mg-potassium 1 tab PO Q12H 7 days #14 tabs 02/02/24 clavulanate 125 mg tablet doxycycline monohydrate 100 mg 100 mg PO BID 7 days #14 tabs 02/02/24 tablet Allergies Allergy/AdvReac Type Severity Reaction Status Date / Time ibuprofen [From MOTRIN] Allergy Severe BLEEDING Verified 02/02/24 18:36 ULCER Review of Systems Review of Systems: Pertinent positives and negatives as stated in HPI PMFSH Past Medical History Source: nursing notes reviewed Medical History Polysubstance abuse Surgical History H/O tooth extraction Family History Family History Paternal Grandfather Prostate cancer Social History Social History Housing: Homeless Housing Other:: was in place for treatment unable to recall Do you presently have visiting nurse or other home services: No Unable to assess alcohol history related to: Refusing to respond Patient Tobacco Use Status: Current everyday Tobacco user Tobacco use type: Cigarette and Smokeless Tobacco Cigarette Packs Per Day: 2 Cigarettes Per Day: 40.0 Years Smoked: 30 e-Cigarette/Vaping Use: Currently Using Second Hand Smoke Exposure: Yes Substance Use Type: Marijuana service: No Physical Exam Vital Signs: Vital Signs: Last Vital Signs Temp 98.0 F 02/02/24 18:31 Pulse 110 H 02/02/24 18:31 Resp 20 02/02/24 18:31 BP 138/78 02/02/24 18:31 Pulse Ox 90 L 02/02/24 18:31 O2 Del Method Room Air 02/02/24 18:31 BMI result Body Mass Index 25.1 VITAL SIGNS: Reviewed. GENERAL: Well developed, well nourished, in no acute distress. HEAD: Normocephalic/atraumatic EYES: PERRLA, EOMI LUNGS: Normal breath sounds. No adventitious sounds or accessory muscle use. SpO2<> CARDIOVASCULAR: Regular rate and rhythm without noted murmurs ABDOMEN: Soft, non-tender, non-distended with bowel sounds. MUSCULOSKELETAL: No tenderness, deformities, or effusions noted on gross inspection. EXTREMITIES: No cyanosis, clubbing or edema. SKIN: Inspection of the skin reveals no rashes NEUROLOGIC: Alert and oriented x 4. Strength and sensation to light touch were grossly intact x 4. Medical Decision Making Medical Decision Making MDM Narrative: 43-year-old male with history and clinical presentation of polysubstance use disorder, denies SI/HI, declining all resources offered, he is alert and oriented and tolerating oral intake. He is otherwise signing out against medical advice and offered discharge Narcan. Differential Diagnosis Differential Diagnoses: The differential diagnosis associated with the presentation includes Please see the discussion above Admission/Observation Consideration of admission/observation: Escalation of care including admission/observation considered Please see the discussion above External Record Review External record reviewed: Outpatient record and Prior outpatient labs Critical Care Time Critical Care Time Critical Care Time: Yes Total Critical Care Time: 30 Attestation: I personally attest to this time spent taking care of the patient. Discharge Plan Discharge Clinical Impression: Accidental overdose Narcotic overdose Qualifiers: Encounter type: initial encounter Injury intent: accidental or unintentional Qualified Code(s): T40.601A - Poisoning by unspecified narcotics, accidental (unintentional), initial encounter Patient Disposition: Left Against Medical Advice Instructions: Adult Overdose (ED) Additional Instructions: Return to the ER for any worsening symptoms. Prescriptions: No Action acetaminophen 325 mg tablet 650 mg PO Q6H PRN (Reason: pain) clonazepam 1 mg tablet 1 mg PO BID PRN (Reason: anxiety) bupropion HCl 100 mg tablet 100 mg PO QAM gabapentin 800 mg tablet 800 mg PO TID hydroxyzine HCl 25 mg tablet 25 mg PO TID PRN (Reason: Anxiety) ibuprofen 600 mg tablet 600 mg PO Q6H PRN (Reason: pain) doxycycline monohydrate 100 mg tablet 100 mg PO BID 7 Days Qty: 14 0RF amoxicillin-pot clavulanate 875-125 mg tablet 1 tab PO Q12H 7 Days Qty: 14 0RF Stand Alone Forms: Against Medical Advice Print Language: [place]
--- NOTE | 2024-02-02 18:44 | PC.NURSE ---
Patient very headstrong on leaving AMA, given sandwich, and gingerale. Pt refused take home narcan. Escorted to security by rn, Pt taking in full sentences, pt refusing d.c labs. Provider aware.
[2024-02-02 18:46] VITALS: BP 138/78; PULSE 110; RESP 18; TEMP 36.6; O2SAT 90
[2024-02-06 07:31] LABS: Glucose, Whole Blood 197 mg/dL (60-115)
== END 2024-02-02 18:51 | disposition left against medical advice (07) ==
LOC: HO.ED 18:48
PROVIDERS: Emergency Provider Student in an Organized Health Care Education/Training Program
DX: T40.601A Poisoning by unspecified narcotics, accidental (unintentional), initial encounter (principal); R40.4 Transient alteration of awareness; F19.90 Other psychoactive substance use, unspecified, uncomplicated; Y92.9 Unspecified place or not applicable
CPT/HCPCS: 82947; 99282; 99283

== ENCOUNTER 2024-02-03 05:12 | Inpatient (IN) | payer OTHER, SELFPAY ==
[2024-02-03] VITALS (47 sets, daily range): BP systolic 81–156; BP diastolic 52–109; PULSE 79–107; RESP 15–28; TEMP 32.7–37.5; O2SAT 85–100; BMI 25.1
--- NOTE | 2024-02-03 | ECG_ITS ---
Test Reason : QTC MONITORING Blood Pressure : / mmHG Vent. Rate : 098 BPM Atrial Rate : 098 BPM P-R Int : 138 ms QRS Dur : 098 ms QT Int : 372 ms P-R-T Axes : 065 066 034 degrees QTc Int : 474 ms Normal sinus rhythm Normal ECG When compared with ECG of 03-FEB-2024 06:17, No significant change was found Referred By: Michelle Smith Electronically Signed By:Prasanth Loja
--- NOTE | ~2024-02-03 | CT_ITS ---
EXAMINATION: CT CHEST WITHOUT CONTRAST CLINICAL INFORMATION: Hypoxia. Found down. Recent pneumonia. COMPARISON: Previous chest x-ray from earlier the same day and chest CTA 01/31/2024 TECHNIQUE: Multidetector volumetric CT imaging of the chest was done. Axial MIP volume rendering provided. Sagittal and coronal reformatted images were obtained. This CT examination was performed using dose optimization techniques as appropriate, variously including the following: *Automated exposure control *Adjustment of mA and/or kV according to patient size (this includes techniques or standardized protocols for targeted exams where dose is matched to indication/reason for exam; i.e. extremities or head) *Use of iterative reconstruction technique DLP: 367 mGy-cm FINDINGS: FIOS LINE INSTALLER: Endotracheal tube tip 1 cm above the maryam and should be pulled back several centimeters. Nasogastric tube tip projects over proximal to mid stomach. LUNGS: Bilateral multi lobar airspace disease not appreciably changed from January 30 exam. Right lung greater than left. MEDIASTINUM: The mediastinum is normal. CORONARY ARTERY CALCIFICATION: None visualized on this study. PLEURA: There is no pleural effusion. No pleural mass or thickening. AXILLA: No lymphadenopathy. UPPER ABDOMEN: Stable small low-attenuation liver lesions probably representing a cyst. OSSEOUS STRUCTURES: No acute findings. CT/CT chest wo IV con IMPRESSION: Bilateral multi lobar pneumonia, right greater than left, not appreciably changed from previous exam. Endotracheal tip 1 cm above the maryam and should be pulled back several centimeters Findings communicated by the Myles chase Claudio guidelines were followed.
--- NOTE | ~2024-02-03 | XR_ITS ---
EXAMINATION: XR CHEST CLINICAL INFORMATION: Central line COMPARISON: Previous chest x-ray and chest CT from earlier the same day TECHNIQUE: Frontal view of the chest was obtained. FINDINGS: Endotracheal tube tip 3 cm above the mrayam. Nasogastric tube projects over proximal to mid stomach, tip not seen. Right jugular line tip projects over SVC. Cardiac and mediastinal contours are stable. There is bilateral multilobar airspace disease, right greater than left. Again this probably represents pneumonia. No pleural effusion or pneumothorax. XR/XR chest 1V IMPRESSION: Right jugular line projects over SVC. No pneumothorax. Endotracheal tube tip 3 cm above maryam.
--- NOTE | ~2024-02-03 | XR_ITS ---
EXAMINATION: XR CHEST CLINICAL INFORMATION: Respiratory failure. COMPARISON: Correlation made with CT performed 01/31/2024 TECHNIQUE: Frontal view of the chest was obtained. FINDINGS: The cardiomediastinal silhouette is within normal limits. There is an endotracheal tube in adequate position above the maryam. A gastric tube extends below the diaphragm into left upper abdomen also in adequate position. Diffuse right-sided infiltrative change is again seen. There is atelectatic change at the left lung base. XR/XR chest 1V IMPRESSION: 1. Endotracheal tube and gastric tube in adequate position. 2. Diffuse right-sided infiltrative change is again seen.
--- NOTE | ~2024-02-03 | CT_ITS ---
EXAMINATION: CT HEAD WITHOUT CONTRAST CT CERVICAL SPINE WITHOUT CONTRAST CLINICAL INFORMATION: Found down. COMPARISON: None available. TECHNIQUE: Contiguous axial imaging was performed through the head and cervical spine without intravenous administration of contrast. Sagittal and coronal reformatted images also obtained. This CT examination was performed using dose optimization techniques as appropriate, variously including the following: *Automated exposure control *Adjustment of mA and/or kV according to patient size (this includes techniques or standardized protocols for targeted exams where dose is matched to indication/reason for exam; i.e. extremities or head) *Use of iterative reconstruction technique DLP: 990 mGy-cm FINDINGS: The lateral, third and fourth ventricles are normally outlined. The cortical sulci and basal cisterns are normally outlined as well. There is no acute territorial defect, hemorrhage or midline shift. The extra-axial spaces are unremarkable. Calvarium: Intact. Maxillofacial sinuses and mastoids: Clear as visualized. Cervical spine: There is straightening of the expected cervical spine curvature. There is mild C5-C6 and C6-C7 disc degenerative change with mild C6-C7 loss of disc space as well as C5-C6 and C6-C7 mild osteophyte formation. There is mild C6-C7 spinal canal and neuroforaminal narrowing. The remaining disc levels are within normal limits. The bone mineralization is normal. There is no fracture. The patient is intubated. A gastric tube is also noted. There is a right upper lobe opacity/infiltrate. CT/CT cervical spine wo IV con IMPRESSION: 1. There is no acute intracranial pathology. 2. There is no acute fracture or dislocation of the cervical spine. 3. There is mild C5-C6 and C6-C7 disc degenerative change. There is mild C6-C7 spinal canal and neuroforaminal narrowing. 4. Right upper lobe opacity/infiltrate.
--- NOTE | 2024-02-03 05:20 | ECG_ITS ---
Test Reason : OVERDOSE Blood Pressure : / mmHG Vent. Rate : 098 BPM Atrial Rate : 098 BPM P-R Int : 140 ms QRS Dur : 106 ms QT Int : 380 ms P-R-T Axes : 054 065 034 degrees QTc Int : 485 ms Normal sinus rhythm Prolonged QT Abnormal ECG When compared with ECG of 01-FEB-2024 08:25, No significant change was found Referred By: Roxana Loera Electronically Signed By:Prasanth Loja
[2024-02-03] MEDS: ondansetron HCL 4 MG/2 ML VIAL IVPUSH (05:35)
[2024-02-03] MEDS: cefEPime HCl 2 GM in 0.9 % Sodium Chloride 50 ML IV ×3 (05:51→14:50)
[2024-02-03] MEDS: SODIUM CHLORIDE 2244 ML IV (05:51)
[2024-02-03] MEDS: fentaNYL citrate/NS 1,000 MCG/100 ML PLAST..BAG 2.5 MCG IVCONT (05:51)
[2024-02-03] MEDS: propofoL 1,000 MG/100 ML VIAL 13.46 MG IVCONT (05:52)
[2024-02-03] MEDS: Etomidate 20 MG/10 ML VIAL IVPUSH (05:53)
[2024-02-03] MEDS: Rocuronium Bromide 50 MG/5 ML VIAL 75 MG IVPUSH (05:53)
--- NOTE | 2024-02-03 05:54 | ED_ITS ---
HPI - Altered Mental Status General Chief Complaint: Overdose Stated Complaint: overdose Time Seen by Provider: 02/03/24 05:12 Source: EMS and old records reviewed Mode of arrival: EMS Limitations: altered mental status History of Present Illness HPI narrative: 43 yo male with PMH of polysubstance abuse who was just admitted here 01/30 after overdose and hypoxia with multifocal pneumonia R > L likely aspiration. He had CT head negative and CTA negative for PE but opacities noted. He was hypoxic initially in 70s but titrated to 2L NC and then weaned off O2. He was discharged on 02/01 on augmentin and doxycycline. A bystander found him unreponsive on a park bench. EMS notes PD gave him 12mg [place] narcan and then EMS gave him 6mg IV narcan and other than pupils improving he was incoherent they could not get O2 saturations or a blood pressure. He was also very cold to the touch. No drug paraphernalia was found on scene. MD complaint: altered mental status, confusion, decreased responsiveness and other (hypoxia) Onset (ago): unknown Severity: severe Consistency of symptoms: unknown Context: drug abuse and other (recent multifocal pneumonia) Associated symptoms: other (respiratory distress, hypoxia, hypothermia, shaking, chills) Treatments prior to arrival: other (12mg intranasal narcan, 6mg IV narcan) Related Data Home Medications ?Medication ?Instructions ?Recorded ?Confirmed acetaminophen 325 mg tablet 650 mg PO Q6H PRN pain 01/31/24 01/31/24 bupropion HCl 100 mg tablet 100 mg PO QAM 01/31/24 01/31/24 clonazepam 1 mg tablet 1 mg PO BID PRN anxiety 01/31/24 01/31/24 gabapentin 800 mg tablet 800 mg PO TID 01/31/24 01/31/24 hydroxyzine HCl 25 mg tablet 25 mg PO TID PRN Anxiety 01/31/24 01/31/24 ibuprofen 600 mg tablet 600 mg PO Q6H PRN pain 01/31/24 01/31/24 Previous Rx's ?Medication ?Instructions ?Recorded amoxicillin 875 mg-potassium 1 tab PO Q12H 7 days #14 tabs 02/02/24 clavulanate 125 mg tablet doxycycline monohydrate 100 mg 100 mg PO BID 7 days #14 tabs 02/02/24 tablet Allergies Allergy/AdvReac Type Severity Reaction Status Date / Time ibuprofen [From VENICE] Allergy Severe BLEEDING Verified 02/03/24 05:26 ULCER Review of Systems 2 Review of Systems: ROS unable to be obtained due to altered mental status PMFSH Past Medical History Source: old records reviewed Medical History Pneumonitis Multifocal pneumonia Polysubstance abuse Surgical History H/O tooth extraction Family History Family History Paternal Grandfather Prostate cancer Social History Social History Housing: Homeless Housing Other:: was in place for treatment unable to recall Do you presently have visiting nurse or other home services: No Unable to assess alcohol history related to: Refusing to respond Patient Tobacco Use Status: Current everyday Tobacco user Tobacco use type: Cigarette and Smokeless Tobacco Cigarette Packs Per Day: 2 Cigarettes Per Day: 40.0 Years Smoked: 30 e-Cigarette/Vaping Use: Currently Using Second Hand Smoke Exposure: Yes Substance Use Type: Marijuana Advance Directives: No Advance Directives Information Provided: Yes service: No Physical Exam ED Vital Signs: Vital Signs - 24 hr 02/03/24 05:24 02/03/24 05:25 02/03/24 05:42 Temperature 90.8 F L 90.8 F L 94.5 F L Pulse Rate 107 H 107 H Respiratory Rate 28 H 20 Blood Pressure 127/77 Pulse Oximetry 100 Oxygen Delivery Method Mechanical Ventilation Fraction of Inspired Oxygen 02/03/24 05:50 02/03/24 05:55 02/03/24 05:59 Temperature 95.9 F L 96.3 F L Pulse Rate 104 H 104 H 100 Respiratory Rate 18 17 20 Blood Pressure 120/76 123/87 Pulse Oximetry 100 100 100 Oxygen Delivery Method Mechanical Ventilation Mechanical Ventilation Mechanical Ventilation Fraction of Inspired Oxygen 02/03/24 06:00 02/03/24 06:25 02/03/24 06:25 Temperature 96.6 F L 96.3 F L Pulse Rate 104 H 100 99 Respiratory Rate 20 15 18 Blood Pressure 121/90 H 96/69 96/69 Pulse Oximetry 100 96 96 Oxygen Delivery Method Mechanical Ventilation Mechanical Ventilation Mechanical Ventilation Fraction of Inspired Oxygen 02/03/24 06:29 02/03/24 06:32 02/03/24 06:34 Temperature 96.6 F L 96.8 F 96.8 F Pulse Rate 99 99 98 Respiratory Rate 18 18 17 Blood Pressure 93/65 86/63 L 89/60 L Pulse Oximetry 95 94 93 Oxygen Delivery Method Mechanical Ventilation Mechanical Ventilation Mechanical Ventilation Fraction of Inspired Oxygen 02/03/24 06:35 02/03/24 06:43 02/03/24 07:03 Temperature 97 F Pulse Rate 98 97 Respiratory Rate 18 Blood Pressure 81/57 L 81/52 L Pulse Oximetry 95 Oxygen Delivery Method Mechanical Ventilation Fraction of Inspired Oxygen 100 02/03/24 07:11 02/03/24 07:16 Temperature Pulse Rate 98 94 Respiratory Rate Blood Pressure 82/55 L 81/52 L Pulse Oximetry Oxygen Delivery Method Fraction of Inspired Oxygen BMI result Body Mass Index 25.1 Appearance: somnolent making noises, severe distress Eyes: Pupils 4mm equal ENT: Pharynx gurgling sounds heard atraumatic exam Neck: Normal inspection. Neck supple. CVS: tachycardic heart rate and rhythm. Pulses normal. Respiratory: moderate respiratory distress - tachypnea and retracting. Breath sounds very coarse throughout and concern for airway protection Abdomen: Soft and nontender. no trauma noted Skin: Skin very cold to the touch. pale skin color. Extremities: hands and fingers are cold on arrival Neuro: incomprehensible sounds, does not open eyes spontaneously, withdraws to pain - GCS 7 Course Course Course Narrative: ETT pulled back 2cm after looking at CXR 6am Reevaluation(s) Reevaluation #1: BP slightly lower after he warmed up will continue to finish fluid bolus and monitor to see if he responds. Reevaluation #2: hypotensive after fluids - levophed ordered focal exam for sepsis performed at 8am Medications Administered Generic Name Dose Route Start Last Admin Trade Name Freq PRN Reason Stop Dose Admin Propofol 1,000 mg in 100 mls @ 0 mls/hr 02/03/24 06:00 02/03/24 05:52 Diprivan IVCONT 30 mcg/kg/min .Q0M RUSSELL 13.46 mls/hr Administration Protocol Per Protocol Fentanyl 1,000 mcg in 100 mls @ 0 mls/hr 02/03/24 06:00 02/03/24 05:51 Sublimaze/Ns IVCONT 25 mcg/hr .Q0M RUSSELL 2.5 mls/hr Administration Protocol Per Protocol Norepinephrine Bitartrate 8 mg in 250 mls @ 0 mls/hr 02/03/24 07:00 02/03/24 07:16 Levophed IV 0.09 mcg/kg/min .Q0M RUSSELL 12.62 mls/hr Titration Protocol Per Protocol Discontinued Medications Generic Name Dose Route Start Last Admin Trade Name Freq PRN Reason Stop Dose Admin Etomidate 20 mg 02/03/24 05:47 02/03/24 05:53 Etomidate 20 Mg/10 Ml Vial IVPUSH 02/03/24 05:48 20 mg ONCE ONE Administration Cefepime HCl 2 gm/ Sodium 50 mls @ 100 mls/hr 02/03/24 05:20 02/03/24 06:18 Chloride IV 02/03/24 05:49 Infused ONCE ONE Infusion Sodium Chloride 1,000 mls @ 999 mls/hr 02/03/24 05:30 02/03/24 06:28 Ns IV 02/03/24 06:30 Not Given .Q1H1M RUSSELL Vancomycin HCl 2,000 mg in 500 mls @ 250 mls/hr 02/03/24 05:20 02/03/24 06:31 Vancomycin/Ns IV 02/03/24 07:19 250 mls/hr ONCE ONE Administration Sodium Chloride 2,244 mls @ 2,244 mls/hr 02/03/24 05:49 02/03/24 05:51 Ns 30 ml/kg infuse over 1 hr (2244 ml) 02/03/24 06:48 2,244 mls/hr IV Administration .Q1H STA Ondansetron HCl 4 mg 02/03/24 05:20 02/03/24 05:35 Ondansetron Hcl 4 Mg/2 Ml Vial IVPUSH 02/03/24 05:21 4 mg ONCE ONE Administration Rocuronium Imperial 75 mg 02/03/24 05:46 02/03/24 05:53 Rocuronium Imperial 50 Mg/5 Ml Vial IVPUSH 02/03/24 05:47 75 mg ONCE ONE Administration Medical Decision Making Medical Decision Making MDM Narrative: 43 yo male with polysubstance abuse and recent multifocal pneumonia here with AMS and no response to 16mg narcan suspect more medical or combination of pneumonia/hypoxia and continued opiate use - at this time he is GCS 7/8 and is not protecting his airway. He will need intubation if he vomits he will not be able to clear his airway. At this time will obtain garibay labs, 30cc/kg bolus, empiric cefepime and vancomycin, CT head/cspine/CT chest just had CTA suspect worsening infection as cause of his symptoms. Will need admission Differential Diagnosis Differential Diagnoses: The differential diagnosis associated with the presentation includes hypothermia, exposure, encephalopathy related to hypoxia and multifocal pneumonia, polysubstance abuse Admission/Observation Consideration of admission/observation: Escalation of care including admission/observation considered admit to ICU Consult Healthcare Provider Management of the patient was discussed with: Final Finisher Forging Dies (call to ICU Dr. Smith will admit) Lab Data MDM Lab Attestation statement: I reviewed the patient's lab results. 02/03/24 05:49 02/03/24 05:49 Labs: Lab Results 02/03/24 02/03/24 02/03/24 Range/Units 05:49 05:58 06:30 WBC 17.5 H (4.8-10.8) X10*3/uL RBC 3.90 L (4.60-5.80) X10*6/uL Hgb 12.0 L (14.0-18.0) g/dl Hct 36.2 L (42.0-52.0) % MCV 92.8 (80.0-98.0) fL MCH 30.8 (27.0-33.0) pg MCHC 33.1 (31.0-36.0) g/dl RDW 13.7 (11.0-16.0) % Plt Count 174 (160-400) X10*3/uL MPV 11.3 (9.4-12.4) fL Immature Gran % (Auto) 1.4 H (0.0-0.4) % Neut % (Auto) 87.2 H (45-73) % Lymph % (Auto) 4.3 L (20-40) % [place] % (Auto) 6.8 (2-11) % Eos % (Auto) 0.1 (0-4) % Baso % (Auto) 0.2 (0-2) % Lymph # (Auto) 0.8 L (1.2-4.9) X10*3/uL [place] # (Auto) 1.2 (0.1-1.2) X10*3/uL Eos # (Auto) 0.0 (0.0-0.4) X10*3/uL Baso # (Auto) 0.0 (0.0-0.2) X10*3/uL Abs Immat Gran (auto) 0.25 H (0.00-0.03) X10*3/uL Absolute Neuts (auto) 15.2 H (2.0-8.3) x10*3/uL Absolute Nucleated RBC 0.000 (0.0-0.012) X10*3/uL Nucleated RBC % (auto) 0.0 (0.0-0.2) /100WBC VBG pH 7.18 L* (7.32-7.43) VBG pCO2 46 mmHg VBG pO2 113 mmHg VBG HCO3 17 L (22-26) mmol/L VBG O2 Saturation 98.0 % VBG Base Excess -10.2 mmol/L Sodium 137 (135-145) mmol/L Potassium 3.8 (3.3-5.1) mmol/L Chloride 101 (96-108) mmol/L Carbon Dioxide 17 L (22-29) mmol/L Anion Gap 23 H (12-20) BUN 13 (9-16) mg/dL Creatinine 1.57 H (0.5-1.4) mg/dL Estim Creat Clear Calc 59.2 Estimated GFR 49 Random Glucose 184 H (60-115) mg/dL Lactic Acid 8.7 H* (0.5-2.0) mmol/L Calcium 8.6 (8.4-10.2) mg/dL Magnesium 2.2 (1.6-2.6) mg/dL Total Bilirubin 0.2 (0.0-1.0) mg/dL Direct Bilirubin < 0.2 (0.0-0.5) mg/dL AST 42 H (5-37) U/L ALT 48 H (0-40) U/L Alkaline Phosphatase 44 (39-117) U/L Ammonia 57 H (13-55) umol/L Total Creatine Kinase 300 H (38-174) U/L Troponin I High Sens 21.4 (<3.5-35.0) ng/L B-Natriuretic Peptide 42 (<100) pg/mL Total Protein 7.4 (6.5-8.0) g/dL Albumin 3.8 (3.5-5.0) g/dL Lipase 35 (8-78) U/L Procalcitonin 0.91 ng/mL Urine Color Dark Yellow Urine Appearance Cloudy Urine pH 5.5 (5.0-9.0) Ur Specific [place] 1.025 (1.005-1.025) Urine Protein 100 (2+) H (Neg-Trace) mg/dL Urine Glucose (UA) Negative (Negative) mg/dL Urine Ketones Trace (Negative) mg/dL Urine Blood Trace H (Negative) Urine Nitrite Negative (Negative) Ur Leukocyte Esterase Trace H (Negative) Urine RBC 0-2 (0-2) /HPF Urine WBC 6-10 H (0-5) /HPF Ur Squamous Epith Cells 11-20 (0-2) /HPF Urine Bacteria None Seen (None Seen) Hyaline Casts 6-10 (0-2) /LPF Urine Opiates Screen POSITIVE H (Not Detect) Urine Fentanyl Screen POSITIVE H (Not Detect) Ur Barbiturates Screen Not Detected (Not Detect) Ur Phencyclidine Scrn Not Detected (Not Detect) Ur Amphetamines Screen Not Detected (Not Detect) U Benzodiazepines Scrn POSITIVE H (Not Detect) Urine Cocaine Screen Not Detected (Not Detect) U Marijuana (THC) Screen POSITIVE H (Not Detect) Ethyl Alcohol < 10 mg/dL Influenza Type A (PCR) NEGATIVE (Negative) Influenza Type B (PCR) NEGATIVE (Negative) RSV RNA Qual (PCR) NEGATIVE (Negative) SARS-CoV-2 RNA (RT-PCR) NEGATIVE (Negative) Independent Interpretation I performed an independent interpretation of an: EKG, Plain X-Ray (ETT appears close to R mainstem will pull back 2cm) and CT Scan (no ICH, multifocal pneumonia noted R > L) Interpretation: Rate: 98 Rhythm: NSR [place]: normal Normal P waves. Normal ANGELY. Normal QRS complex. ST T wave : no BIBI, inverted t wave V1 qTC: 485 prior studies: no acute ischemia The study has been interpreted contemporaneously by me. . Radiology Impression Discussion of test interpretation with radiology: I have reviewed the radiologist's reading. Independent Historian Clinical information obtained from an independent historian. History obtained from or confirmed by: EMS External Record Review External record reviewed: Inpatient record Procedures Central Line Placement Right IJ: Time Out Performed: Yes Patient Placed on Monitor/Pulse Ox: Yes MD Prep: mask, gown and gloves Central Line Prep: Chlorhexidine scrub Ultrasound Used for Placement: Yes Central Line Lumen Inserted: triple Post Procedure: sutured in place, good blood return, all ports aspirated, flushed, capped and sterile dressing applied Post Procedure X-Ray: tip of catheter in good position and no pneumothorax seen Patient Tolerated Procedure: well and no complications Complications: none Additional Comments: MARIN Cullen attempted x 1 unable to advance wire and could not clot noted at tip of wire, new wire obtained and 2nd attempt by me no issues first pass attempt. EJ/Peripheral Line Neck L: Time Out Performed: Yes Skin Cleansed in Sterile Fashion: Yes Size (gauge): 18 IV Secured and Dressing Applied: Yes Patient Tolerated Procedure: well and no complications Intubation Intubation Type:: Emergency Endotracheal Intubation Intubation Date:: 02/03/24 Time out performed: Yes sedative: Etomidate Mg Given: 20 paralytic: Rocuronium Mg Given: 75 Laryngoscope: other (glidescope) ET Tube Size: 7.5 ET Tube Uncuffed: No Tube Secured Depth (cm): 22 Tube Secured Location: teeth Tube Placement Confirmation: visualized tube passing through cords, equal breath sounds bilaterally and confirmation by capnometry Patient Tolerated Procedure: well and no complications Intubation Complications: none Critical Care Time Critical Care Time Critical Care Time: Yes Total Critical Care Time: 60 Attestation: repeat bedside assessments, review of records, admission to hospital, EMS discussion I attest to this time spent taking care of the patient Discharge Plan Discharge Clinical Impression: Polysubstance abuse, Hypoxia, Multifocal pneumonia, Acidosis, lactic, Encephalopathy acute, LYNN (acute kidney injury) Hypothermia Qualifiers: Encounter type: initial encounter Qualified Code(s): T68.XXXA - Hypothermia, initial encounter Patient Disposition: Admitted As Inpatient Print Language: Micronesian
--- NOTE | 2024-02-03 05:56 | PC.NURSE ---
pt moved to ED room 5 for intubation d/t not protecting airway, @05:24 rectal temp 90.8, lamar hugger placed on pt. @05:30 temp sensing wick catheter placed. @05:39, temp up to 94.1 @05:39 20mg etomidate and 75mg mariza administered for intubation ETT tube size 7.5, 23@lip OG tube placed by , #18g iv placed in L EJ by , labs/cultures obtained and sent to lab @05:42 vitals: HR 107, RR 20, O2 100% on vent, T 94.5, BP 127/77 Propofol drip 30mcg started @05:47, fentanyl drip 25mcg started @05:50 antibiotics and fluids running per dec. @05:50 vitals: HR 104, RR 18, O2 100% vent, BP 120/76, T 95.9 @05:55 vitals: HR 104, RR 17, O2 100% on vent, T 96.3 Xray in room
[2024-02-03 06:00] LABS: MANUAL DIFF FLAG NO
[2024-02-03 06:00] LABS: Venous Blood Gas Refer to POC result
[2024-02-03 06:02] LABS: Basophils Percent Auto 0.2 % (0-2); Eosinophils Percent Auto 0.1 % (0-4); Hematocrit 36.2 % (42.0-52.0); Imm Gran Abs Auto 0.25 X10*3/uL (0.00-0.03); Imm Gran Pct Auto 1.4 % (0.0-0.4); Lymphocytes Absolute Auto 0.8 X10*3/uL (1.2-4.9); Lymphocytes Percent Auto 4.3 % (20-40); Mean Corpuscular HGB Conc 33.1 g/dl (31.0-36.0); Mean Corpuscular Hemoglobin 30.8 pg (27.0-33.0); Mean Corpuscular Volume 92.8 fL (80.0-98.0); Mean Platelet Volume 11.3 fL (9.4-12.4); Monocytes Absolute Auto 1.2 X10*3/uL (0.1-1.2); Monocytes Percent Auto 6.8 % (2-11); Neutrophils Absolute Auto 15.2 x10*3/uL (2.0-8.3); Neutrophils Percent Auto 87.2 % (45-73); Platelet Count 174 X10*3/uL (160-400); Red Cell Distribution Width 13.7 % (11.0-16.0); White Blood Count 17.5 X10*3/uL (4.8-10.8)
[2024-02-03 06:06] LABS: Ammonia 57 umol/L (13-55)
[2024-02-03 06:07] LABS: VBG Base Excess -10.2 mmol/L; VBG HCO3 17 mmol/L (22-26); VBG pCO2 46 mmHg; VBG pH 7.18 (7.32-7.43); VBG pO2 113 mmHg
[2024-02-03 06:20] LABS: Lactic Acid 8.7 mmol/L (0.5-2.0); Troponin-I High Sensitivity 21.4 ng/L (<3.5-35.0)
[2024-02-03 06:21] LABS: B Type Natriuretic Peptide 42 pg/mL (<100)
[2024-02-03 06:24] LABS: Alanine Aminotransferase 48 U/L (0-40); Albumin Level 3.8 g/dL (3.5-5.0); Alkaline Phosphatase 44 U/L (39-117); Anion Gap 23 (12-20); Aspartate Amino Transferase 42 U/L (5-37); Bilirubin Direct < 0.2 mg/dL (0.0-0.5); Bilirubin Total 0.2 mg/dL (0.0-1.0); Blood Urea Nitrogen 13 mg/dL (9-16); Calcium 8.6 mg/dL (8.4-10.2); Carbon Dioxide 17 mmol/L (22-29); Chloride 101 mmol/L (96-108); Creatinine Clr Calc Pharmacy 59.2; Estimated Glomerular Filt Rate 49; Ethanol < 10 mg/dL; Glucose Random 184 mg/dL (60-115); Lipase 35 U/L (8-78); Magnesium 2.2 mg/dL (1.6-2.6); Potassium 3.8 mmol/L (3.3-5.1); Sodium 137 mmol/L (135-145); Total Protein 7.4 g/dL (6.5-8.0)
--- NOTE | 2024-02-03 06:30 | PC.NURSE ---
LATE ENTRY By stander called PD, Pt was found on park bench unresponsive. 12 mg of nasal narcan given, 6 mg IV narcan given for a total of 18 mg. IV line established by EMS. ON ARRIVAL PT SLIGHTLY RESPONSIVE TO VERBAL STIMULI. CLOTHES CUT OFF. PT INITIALLY TRIALLED ON HIGH FLOW IN RM 13. PT MOVED TO BED 5 TO INTUBATE. PT MEDICATED PER MAR VIA IV. AIRWAY ESTABLISHED. ACCESS L. AC 20G, L. SHOULDER 20G. EJ OBTAINED BY DR. DOSHI LABS DRAWN AND SENT TO LAB. PROPOFOL AND FETANYL MOVED TO AND INFUSING PER MAR. SEPSIS PROTOCOL INITIATED AND IVF INFUSING PER MAR. IV ABX HUNG. OG TUBE PLACED. XR TO BEDSIDE TO CONFIRM PLACEMENT.
[2024-02-03] MEDS: vancomycin/NS 2,000 MG/500 ML PLAST..BAG 250 MG IV (06:31)
[2024-02-03 06:38] LABS: Procalcitonin 0.91 ng/mL
[2024-02-03 06:39] LABS: Influenza A PCR NEGATIVE (Negative); Influenza B PCR NEGATIVE (Negative); Resp Syncy Virus RNA Qual PCR NEGATIVE (Negative); SARS COV2 PCR INHOUSE NEGATIVE (Negative)
[2024-02-03 06:40] LABS: Appearance Urine Cloudy; Color Urine Dark Yellow; Glucose Urine UA Negative (Negative); Leukocyte Esterase Urine Trace (Negative); Nitrite Urine Negative (Negative); PH 5.5 (5.0-9.0); Specific Gravity - Urine 1.025 (1.005-1.025); UMIC TRIGGER UACC YES; Urine Blood Trace (Negative); Urine Ketones Trace mg/dL (Negative); Urine Protein 100 (2+) mg/dL (Neg-Trace)
--- NOTE | 2024-02-03 06:42 | PC.NURSE ---
ivf infusing on pressure bags. Dr. Loera aware of BP. pt taken to CT and back to room without complications. core temp 97.0F bear hugger removed per dr. loera. warm blankets placed on pt. propofol and fetanyl infusing per mar. Vanco infusing per mar.
[2024-02-03 06:46] LABS: Amphetamine Screen Urine Not Detected (Not Detect); Barbiturates, Urine Not Detected (Not Detect); Benzodiazepines Screen Urine POSITIVE (Not Detect); Cannabinoid Screen Urine POSITIVE (Not Detect); Cocaine Screen Urine Not Detected (Not Detect); Fentanyl, urine POSITIVE (Not Detect); Opiate Screen Urine POSITIVE (Not Detect); Phencyclidine Screen Urine Not Detected (Not Detect)
[2024-02-03 06:52] LABS: Bacteria Urine None Seen (None Seen); RBC Urine 0-2 /HPF (0-2); UACC Culture Trigger YES
[2024-02-03] MEDS: Norepinephrine Bitartrate/D5W 8 MG/250 ML PLAST..BAG 7.01 MG IV (07:03)
--- NOTE | 2024-02-03 07:03 | PC.NURSE ---
dr curiel and abhay lee at bedside for central line plcement.
--- NOTE | 2024-02-03 07:19 | PC.NURSE ---
pt handover report given to ed rn Zuri.
--- NOTE | 2024-02-03 07:43 | P.HPCC_ITS ---
History of Present Illness Date of Service: 02/03/24 Attending physician on admission: Michelle Smith Chief Complaint: Acute Hypoxic Respiratory Failure Patient is a 43 Y M undomiciled, with polysubstance misuse and recent admission to [facility] on 01/30 for opioid overdose, c/b aspiration pneumonia and acute hypoxic respiratory failure, ultimately discharged 02/01; patient reportedly found outside 04 PM unresponsive, hypoxic, given naloxone w/o improvement; in the emergency department, patient intubated, found to have CT chest c/f multi-focal pneumonia Review of Systems 2 Review of Systems: Yes unobtainable due to endotracheal tube PMFSH Past Medical History Medical History Pneumonitis Multifocal pneumonia Polysubstance abuse Family History Family History Paternal Grandfather Prostate cancer Family history: reviewed and not pertinent Surgical History Surgical History H/O tooth extraction Social History Social History Housing: Homeless Housing Other:: was in place for treatment unable to recall Do you presently have visiting nurse or other home services: No Unable to assess alcohol history related to: Unable to respond Patient Tobacco Use Status: Current everyday Tobacco user Tobacco use type: Cigarette and Smokeless Tobacco Cigarette Packs Per Day: 2 Cigarettes Per Day: 40.0 Years Smoked: 30 e-Cigarette/Vaping Use: Currently Using Second Hand Smoke Exposure: Yes Use of substances other than those prescribed or required for medical reasons: Unable to respond Substance Use Type: Marijuana Advance Directives: No Advance Directives Information Provided: Yes service: No Meds Allergies Allergy/AdvReac Type Severity Reaction Status Date / Time ibuprofen [From MOTRIN] Allergy Severe BLEEDING Verified 02/03/24 05:26 ULCER Active Medications: Current Medications Chlorhexidine Gluconate (Chlorhexidine Gluc Oral Rinse 15 Ml Mouthwash) 15 ml BUCCAL Q8H RUSSELL Heparin Sodium (Porcine) (Heparin Sodium,Porcine 5,000 Unit/Ml Vial) 5,000 unit SUBCUT Q8H RUSSELL Propofol (Diprivan) 1,000 mg in 100 mls @ 0 mls/hr IVCONT .Q0M RUSSELL; Protocol Last Admin: 02/03/24 05:52 Dose: 30 mcg/kg/min, 13.46 mls/hr Fentanyl (Sublimaze/Ns) 1,000 mcg in 100 mls @ 0 mls/hr IVCONT .Q0M RUSSELL; Protocol Last Admin: 02/03/24 05:51 Dose: 25 mcg/hr, 2.5 mls/hr Norepinephrine Bitartrate (Levophed) 8 mg in 250 mls @ 0 mls/hr IV .Q0M RUSSELL; Protocol Last Titration: 02/03/24 07:21 Dose: 0.12 mcg/kg/min, 16.83 mls/hr Sodium Chloride (Ns) 1,000 mls @ 100 mls/hr IVCONT .Q10H RUSSELL Pantoprazole Sodium 40 mg/ (Sodium Chloride) 110 mls @ 400 mls/hr IV DAILY@0630 RUSSELL Propofol (Diprivan) 1,000 mg in 100 mls @ 0 mls/hr IVCONT .Q0M RUSSELL; Protocol Norepinephrine Bitartrate (Levophed) 8 mg in 250 mls @ 0 mls/hr IV .Q0M RUSSELL; Protocol Sodium Bicarbonate 150 meq/ (Dextrose) 1,000 mls @ 100 mls/hr IV .Q10H RUSSELL Cefepime HCl 2 gm/ Sodium (Chloride) 50 mls @ 100 mls/hr IV Q8H RUSSELL Ondansetron HCl (Ondansetron Hcl 4 Mg/2 Ml Vial) 4 mg IVPUSH Q4H PRN PRN Reason: Nausea and Vomiting Pharmacy Consult (Consult Rx Vancomycin Dosing) 1 each MISCELLANE DAILY PRN PRN Reason: Consult order Sodium Bicarbonate (Sodium Bicarbonate 8.4% 50 Meq/50 Ml Syringe) 50 meq IVPUSH ONCE ONE Stop: 02/03/24 07:39 Home Medications ?Medication ?Instructions ?Recorded ?Confirmed ?Last Taken ?Type acetaminophen 325 mg tablet 650 mg PO Q6H PRN pain 01/31/24 02/03/24 Unknown History bupropion HCl 100 mg tablet 100 mg PO DAILY 01/31/24 02/03/24 Unknown History clonazepam 1 mg tablet 1 mg PO BID PRN anxiety 01/31/24 02/03/24 Unknown History gabapentin 800 mg tablet 800 mg PO TID 01/31/24 02/03/24 Unknown History hydroxyzine HCl 25 mg tablet 25 mg PO TID PRN Anxiety 01/31/24 02/03/24 Unknown History ibuprofen 600 mg tablet 600 mg PO Q6H PRN pain 01/31/24 02/03/24 Unknown History Physical Exam 2 Vital Signs: Vital Signs: Last Vital Signs Temp 97 F 02/03/24 06:43 Pulse 94 02/03/24 07:21 Resp 18 02/03/24 06:43 BP 94/63 02/03/24 07:21 Pulse Ox 95 02/03/24 06:43 O2 Del Method Mechanical Ventil ation 02/03/24 06:43 FiO2 100 02/03/24 06:35 BMI result Body Mass Index 25.1 Const: Other: intubated, sedated HEENT: Head: Yes normal to inspection, Yes normocephalic and Yes atraumatic Eyes: General: appearance normal, both eyes and all related structures Neck: Neck: Yes normal visual inspection, Yes full ROM, Yes trachea midline and Yes supple Chest: Chest palpation & inspection: normal inspection of the chest Resp: Other: some appreciable rhonchi; no appreciable rales, wheezing Cardio: Rate: regular rate Rhythm: regular rhythm GI: Inspection: Yes normal to inspection, No Abdominal wall edema and No distended Palpation (GI): Soft to palpation, not firm, nontender, no guarding and not rigid : Male General Exam: Yes normal external exam Skin: General skin exam: no rashes or lesions noted Neuro: Other: unable to assess Extrem: General: Yes normal to inspection, Yes full ROM, Yes capillary refill normal and Yes no clubbing, cyanosis or edema Psych: Other: unable to assess Results Labs 02/03/24 07:55 02/03/24 07:55 Labs: Laboratory Results - last 24 hr 02/03/24 02/03/24 02/03/24 05:49 05:58 06:30 MCV 92.8 MCH 30.8 MCHC 33.1 RDW 13.7 Plt Count 174 MPV 11.3 Immature Gran % (Auto) 1.4 H Neut % (Auto) 87.2 H Lymph % (Auto) 4.3 L Aiken % (Auto) 6.8 Eos % (Auto) 0.1 Baso % (Auto) 0.2 Lymph # (Auto) 0.8 L Aiken # (Auto) 1.2 Eos # (Auto) 0.0 Baso # (Auto) 0.0 Abs Immat Gran (auto) 0.25 H Absolute Neuts (auto) 15.2 H Absolute Nucleated RBC 0.000 Nucleated RBC % (auto) 0.0 VBG pH 7.18 L* VBG pCO2 46 VBG pO2 113 VBG HCO3 17 L VBG O2 Saturation 98.0 VBG Base Excess -10.2 Anion Gap 23 H Estim Creat Clear Calc 59.2 Estimated GFR 49 Random Glucose 184 H Lactic Acid 8.7 H* Calcium 8.6 Magnesium 2.2 Total Bilirubin 0.2 Direct Bilirubin < 0.2 AST 42 H ALT 48 H Alkaline Phosphatase 44 Ammonia 57 H Total Creatine Kinase 300 H Troponin I High Sens 21.4 B-Natriuretic Peptide 42 Total Protein 7.4 Albumin 3.8 Lipase 35 Procalcitonin 0.91 Urine Color Dark Yellow Urine Appearance Cloudy Urine pH 5.5 Ur Specific Mena 1.025 Urine Protein 100 (2+) H Urine Glucose (UA) Negative Urine Ketones Trace Urine Blood Trace H Urine Nitrite Negative Ur Leukocyte Esterase Trace H Urine RBC 0-2 Urine WBC 6-10 H Ur Squamous Epith Cells 11-20 Urine Bacteria None Seen Hyaline Casts 6-10 Urine Opiates Screen POSITIVE H Urine Fentanyl Screen POSITIVE H Ur Barbiturates Screen Not Detected Ur Phencyclidine Scrn Not Detected Ur Amphetamines Screen Not Detected U Benzodiazepines Scrn POSITIVE H Urine Cocaine Screen Not Detected U Marijuana (THC) Screen POSITIVE H Ethyl Alcohol < 10 Influenza Type A (PCR) NEGATIVE Influenza Type B (PCR) NEGATIVE RSV RNA Qual (PCR) NEGATIVE SARS-CoV-2 RNA (RT-PCR) NEGATIVE Imaging Radiologist's Impressions: Impressions Chest X-Ray 02/03/24 05:58 IMPRESSION: 1. Endotracheal tube and gastric tube in adequate position. 2. Diffuse right-sided infiltrative change is again seen. Cervical Spine CT 02/03/24 06:36 IMPRESSION: 1. There is no acute intracranial pathology. 2. There is no acute fracture or dislocation of the cervical spine. 3. There is mild C5-C6 and C6-C7 disc degenerative change. There is mild C6-C7 spinal canal and neuroforaminal narrowing. 4. Right upper lobe opacity/infiltrate. Head CT 02/03/24 06:36 IMPRESSION: 1. There is no acute intracranial pathology. 2. There is no acute fracture or dislocation of the cervical spine. 3. There is mild C5-C6 and C6-C7 disc degenerative change. There is mild C6-C7 spinal canal and neuroforaminal narrowing. 4. Right upper lobe opacity/infiltrate. Chest CT 02/03/24 06:38 IMPRESSION: Bilateral multi lobar pneumonia, right greater than left, not appreciably changed from previous exam. Endotracheal tip 1 cm above the maryam and should be pulled back several centimeters Findings communicated by the Myles chase Pleitezner guidelines were followed. Assessment and Plan (1) Acute hypoxic respiratory failure: Status: Acute (2) Multifocal pneumonia: Status: Acute (3) Narcotic overdose: Qualifiers: Encounter type: initial encounter Injury intent: accidental or unintentional Qualified Code(s): T40.601A - Poisoning by unspecified narcotics, accidental (unintentional), initial encounter Status: Acute (4) Hypothermia: Qualifiers: Encounter type: initial encounter Qualified Code(s): T68.XXXA - Hypothermia, initial encounter Status: Acute (5) LYNN (acute kidney injury): Status: Acute (6) Encephalopathy acute: Status: Acute (7) Polysubstance abuse: Status: Acute Plan Patient is a 43 Y M, undomiciled, with polysubstance misuse p/w acute hypoxic respiratory failure in setting of likely opioid overdose, intubated 02/02; ICU course c/b shock, acute renal insufficiency N: intubated, sedated w/ propofol, fentanyl gtt; wean as tolerated CV: shock, likely distributive; norepinephrine gtt; wean as tolerated R: acute hypoxic respiratory failure, likely d/t aspiration in setting of opioid overdose; wean as tolerated GI: no acute issues; NPO : acute renal insufficiency; to monitor renal indices closely; anion-gap metabolic acidosis d/t lactic acidosis; bicarbonate gtt H: no acute issues; chemical DVT prophylaxis w/ heparin SQ ID: c/f septic shock, empiric vancomycin, cefepime; to follow-up HIV testing E: hyperglycemia; to continue to monitor P: unable to assess S: no known contacts; to follow-up social work Total time managing care of this patient today: 120 minutes.
[2024-02-03 07:57] LABS: Reflex Lactate? Lactic Acid Added
--- NOTE | 2024-02-03 07:57 | PHA.MEDREC ---
Pharmacy Consult ? Medication Reconciliation Pharmacy has completed the medication reconciliation. Med rec done 3 days ago. Used discharge papers. No claims for the antibiotics he was discharged on.
[2024-02-03 08:04] LABS: Basophils Percent Auto 0.2 % (0-2); Hematocrit 32.2 % (42.0-52.0); Hemoglobin 10.9 g/dl (14.0-18.0); Imm Gran Abs Auto 0.18 X10*3/uL (0.00-0.03); Imm Gran Pct Auto 1.2 % (0.0-0.4); Lymphocytes Percent Auto 6.6 % (20-40); MANUAL DIFF FLAG SCAN; Mean Corpuscular HGB Conc 33.9 g/dl (31.0-36.0); Mean Corpuscular Volume 91.5 fL (80.0-98.0); Mean Platelet Volume 11.2 fL (9.4-12.4); Monocytes Absolute Auto 1.9 X10*3/uL (0.1-1.2); Monocytes Percent Auto 12.2 % (2-11); Neutrophils Absolute Auto 12.5 x10*3/uL (2.0-8.3); Neutrophils Percent Auto 79.8 % (45-73); Platelet Count 153 X10*3/uL (160-400); Red Blood Count 3.52 X10*6/uL (4.60-5.80); Red Cell Distribution Width 13.8 % (11.0-16.0); SCAN SMEAR FLAG 1; White Blood Count 15.7 X10*3/uL (4.8-10.8)
[2024-02-03 08:05] LABS: Venous Blood Gas Refer to POC result
[2024-02-03 08:05] LABS: VBG Base Excess -5.9 mmol/L; VBG HCO3 20 mmol/L (22-26); VBG pCO2 43 mmHg; VBG pH 7.27 (7.32-7.43); VBG pO2 62 mmHg
[2024-02-03] MEDS: Heparin Sodium,Porcine 5,000 UNIT/ML VIAL 5000 UNIT SUBCUT ×2 (08:21→14:51)
[2024-02-03 08:23] LABS: Alanine Aminotransferase 103 U/L (0-40); Albumin Level 3.2 g/dL (3.5-5.0); Alkaline Phosphatase 55 U/L (39-117); Anion Gap 13 (12-20); Aspartate Amino Transferase 95 U/L (5-37); Bilirubin Total 0.6 mg/dL (0.0-1.0); Blood Urea Nitrogen 13 mg/dL (9-16); Carbon Dioxide 20 mmol/L (22-29); Chloride 107 mmol/L (96-108); Creatinine Clr Calc Pharmacy 80.2; Estimated Glomerular Filt Rate > 60; Glucose Random 151 mg/dL (60-115); Magnesium 1.9 mg/dL (1.6-2.6); Phosphorus 3.3 mg/dL (2.7-4.5); Potassium 3.6 mmol/L (3.3-5.1); Sodium 136 mmol/L (135-145); Total Protein 5.9 g/dL (6.5-8.0)
[2024-02-03] MEDS: Pantoprazole Sodium 40 MG in 0.9 % Sodium Chloride 100 ML 400 MG IV (08:23)
[2024-02-03] MEDS: Sodium Bicarbonate 8.4% 50 MEQ/50 ML SYRINGE IVPUSH (08:26)
[2024-02-03] MEDS: 0.9 % Sodium Chloride 1,000 ML 100 ML IVCONT (08:33)
[2024-02-03 08:34] LABS: SLIDE REVIEW VERIFIED
[2024-02-03 08:38] LABS: Calcium 7.6 mg/dL (8.4-10.2)
[2024-02-03 08:39] LABS: ~Lactic Acid-LAB USE ONLY 1.6 mmol/L (0.5-2.0)
[2024-02-03] MEDS: Sodium Bicarbonate 8.4% 150 MEQ in Dextrose 5 % 850 ML 100 MEQ IV (08:41)
[2024-02-03 09:01] LABS: HIV AB/AG Nonreactive (Nonreactive); HIV Num 1 0.07 S/CO (0.00-0.99)
--- NOTE | 2024-02-03 09:08 | PC.NURSE ---
ASSUMED CARE OF THIS PT AT 0700, PT INTUBATED, ADEQUATELY SEDATED, WITH SOFT RESTRAINTS IN PLACE, NSR ON MONITOR. CVC PLACED BY SAM FUNES AND TICO DRIVER, SLIGHT HEMATOMA AT TIME OF INSERTION, LINE PATENT WITH GOOD BLOOD RETURN AND CXR CONFIRMATION OF PLACEMENT. LEVO GTT TITRATED PER PROTOCOL, PT NORMOTENSIVE AT 0.12 MCG/KG/HR. REPORT GIVEN TO ÁNGEL ISBELL OVER THE PHONE. 200CCS URINARY OUTPUT AT TIME OF TRANSPORT TO ICU, MAINTAINING GOOD SATS ON 40% FIO2. PT BECAME SLIGHTLY ROUSED AT TIME OF TRANSPORT, 5CC PROPOFOL IVP ADMINISTERED FOR TRANSPORT.
[2024-02-03] MEDS: Chlorhexidine Gluc Oral Rinse 15 ML MOUTHWASH BUCCAL ×3 (10:00→21:51)
[2024-02-03] MEDS: propofoL 1,000 MG/100 ML VIAL 17.95 MG IVCONT (10:10)
--- NOTE | 2024-02-03 10:36 | PHA.PROG ---
Admission Date/Time: February 03, 2024 07:34 Indication: OTHER Weight in k.8 kg Adjusted body weight in Kg: [place] body weight in Kg: Obesity Dosing Indication % IBW: Serum Creatinine - Last 168 Hours 02/03/24 02/03/24 02/03/24 05:49 07:55 07:55 Creatinine 1.57 H Cancelled 1.16 Estimated CrCl and GFR - Last 168 Hours 02/03/24 02/03/24 02/03/24 05:49 07:55 07:55 Estim Creat Clear Calc 59.2 Cancelled 80.2 Estimated GFR 49 Cancelled 02/03/24 07:55 Estim Creat Clear Calc Estimated GFR > 60 Vancomycin Loading Dose: 2000 MG Current Vancomycin Dosing Regimen: 1000 MG Q12H Vancomycin Monitoring using AUC goal of 400 - 600 range with trough as surrogate marker: SMR=101 TROUGH=18.1 Date and Time for next Vancomycin Level to be drawn: 02/04/2024 @1700 Pharmacist Comments on Vancomycin Plan: Vancomycin dosing will take advantage of [employer] as a clinical decision support tool that uses Bayesian modeling to calculate individual patient's pharmacokinetic parameters and forecast the patient's drug concentration time course with the target goal AUC 24 range of 400 - 600 mg/L/hr.
[2024-02-03 12:42] LABS: Glucose, Whole Blood 146 mg/dL (60-115)
--- NOTE | 2024-02-03 14:02 | MHC.CM.PN ---
PT IS CURRENTLY INTUBATED AND SEDATED IN ICU. PER NOTES FROM RECENT ADMISSION, HAS NO STABLE LIVING SITUATION, HOMELESS. NO NOK NOTED DURING LAST VISIT, CM WILL CONTINUE TO FOLLOW FOR A PLAN AND CONTINUE TO ATTEMPT TO GATHER INFORMATION ONCE PT IS EXTUBATED.
[2024-02-03] MEDS: Calcium Chloride 1 GM/10 ML SYRINGE IVPUSH (14:51)
[2024-02-03] MEDS: Albumin Human 25 % 50 ML 100 ML IV (15:31)
[2024-02-03] MEDS: propofoL 1,000 MG/100 ML VIAL 22.44 MG IVCONT ×3 (15:37→21:49)
[2024-02-03 17:55] LABS: Glucose, Whole Blood 114 mg/dL (60-115)
[2024-02-03] MEDS: vancomycin HCL 1,000 MG in 0.9 % Sodium Chloride 250 ML 270 MG IV (17:59)
[2024-02-03 18:18] LABS: VBG Base Excess 1.1 mmol/L; VBG HCO3 24 mmol/L (22-26); VBG pCO2 36 mmHg; VBG pH 7.44 (7.32-7.43); VBG pO2 51 mmHg
[2024-02-03 18:21] LABS: Venous Blood Gas Refer to POC result
--- NOTE | 2024-02-03 18:32 | PC.NURSE ---
Assumed care of patient at 09:00. Pt admitted to ICU from ED. Pt arrived vented and sedated. ET tube 7.5 26@ lip. Vent settings ACVC 20/400/5.0/100% For sedation, Propofol gtt@ 30 mcg/kg/min and Fentanyl gtt @ 25mcg/hr. Pt maintined good vent synchrony. Levophed gtt was @0.12 upon arrival to unit. Pt tolerated decreases in levophed rate per protocol for MAP goal >65. Pt provided bed bath and oral care. Per MD, bear hugger applied for low temperature 97.0 F. Bear hugger treatment removed at 14:00 for temperature 99.0. 18:30 Pt temperature maintaining at 98.9 F Pt required increases in sedation for breakthrough episodes of restlessness/agitation. Pt remained eyes closed but sitting up in bed, reaching for ET tube and attempting to remove airway. Pt was not redirectable. Propofol gtt increased to 50 mcg/kg/min per protocol. Fentanyl gtt increased to 50 mcg/kg/min.
[2024-02-03] MEDS: Albumin Human 25 % 100 ML IV (20:03)
[2024-02-03] MEDS: Midazolam HCl/PF 2 MG/2 ML VIAL IVPUSH (20:26)
[2024-02-03] MEDS: Midazolam HCl/PF 2 MG/2 ML VIAL 4 MG IVPUSH (21:51)
[2024-02-03] MEDS: fentaNYL citrate/NS 1,000 MCG/100 ML PLAST..BAG 15 MCG IVCONT (22:19)
[2024-02-03 23:54] LABS: Glucose, Whole Blood 87 mg/dL (60-115)
[2024-02-04] VITALS (37 sets, daily range): BP systolic 92–139; BP diastolic 40–88; PULSE 72–100; RESP 12–25; TEMP 36.6–38.6; O2SAT 92–97; BMI 28.1
[2024-02-04] MEDS: Heparin Sodium,Porcine 5,000 UNIT/ML VIAL 5000 UNIT SUBCUT ×4 (00:06→23:35)
[2024-02-04] MEDS: cefEPime HCl 2 GM in 0.9 % Sodium Chloride 50 ML IV ×4 (00:06→23:36)
[2024-02-04] MEDS: Midazolam HCl/PF 2 MG/2 ML VIAL 4 MG IVPUSH ×3 (00:50→05:53)
[2024-02-04] MEDS: propofoL 1,000 MG/100 ML VIAL 22.44 MG IVCONT ×3 (00:50→07:54)
[2024-02-04 02:22] LABS: Glucose, Whole Blood 90 mg/dL (60-115)
[2024-02-04] MEDS: fentaNYL citrate/NS 1,000 MCG/100 ML PLAST..BAG 20 MCG IVCONT (03:02)
[2024-02-04] MEDS: dexmedeTOMIDidine HCL/NS 400 MCG/100 ML INFUS..BTL 18.7 MCG IVCONT (03:04)
[2024-02-04 04:15] LABS: Glucose, Whole Blood 90 mg/dL (60-115)
[2024-02-04 04:54] LABS: VBG Base Excess 3.8 mmol/L; VBG HCO3 27 mmol/L (22-26); VBG pCO2 39 mmHg; VBG pH 7.45 (7.32-7.43); VBG pO2 45 mmHg
[2024-02-04 04:55] LABS: MANUAL DIFF FLAG NO
[2024-02-04 04:56] LABS: Basophils Percent Auto 0.4 % (0-2); Eosinophils Absolute Auto 0.3 X10*3/uL (0.0-0.4); Eosinophils Percent Auto 2.3 % (0-4); Hematocrit 29.5 % (42.0-52.0); Hemoglobin 10.3 g/dl (14.0-18.0); Imm Gran Abs Auto 0.03 X10*3/uL (0.00-0.03); Imm Gran Pct Auto 0.3 % (0.0-0.4); Lymphocytes Absolute Auto 2.1 X10*3/uL (1.2-4.9); Lymphocytes Percent Auto 18.9 % (20-40); Mean Corpuscular HGB Conc 34.9 g/dl (31.0-36.0); Mean Corpuscular Volume 88.9 fL (80.0-98.0); Mean Platelet Volume 11.1 fL (9.4-12.4); Monocytes Absolute Auto 1.4 X10*3/uL (0.1-1.2); Monocytes Percent Auto 12.7 % (2-11); Neutrophils Absolute Auto 7.3 x10*3/uL (2.0-8.3); Neutrophils Percent Auto 65.4 % (45-73); Platelet Count 155 X10*3/uL (160-400); Red Blood Count 3.32 X10*6/uL (4.60-5.80); Red Cell Distribution Width 14.1 % (11.0-16.0); White Blood Count 11.2 X10*3/uL (4.8-10.8)
[2024-02-04] MEDS: Pantoprazole Sodium 40 MG/10 ML VIAL IVPUSH (05:10)
[2024-02-04 05:11] LABS: Alanine Aminotransferase 83 U/L (0-40); Albumin Level 3.2 g/dL (3.5-5.0); Alkaline Phosphatase 43 U/L (39-117); Anion Gap 11 (12-20); Aspartate Amino Transferase 66 U/L (5-37); Bilirubin Total 0.2 mg/dL (0.0-1.0); Blood Urea Nitrogen 9 mg/dL (9-16); Calcium 8.4 mg/dL (8.4-10.2); Carbon Dioxide 25 mmol/L (22-29); Chloride 108 mmol/L (96-108); Creatinine Clr Calc Pharmacy 116.3; Estimated Glomerular Filt Rate > 60; Glucose Random 100 mg/dL (60-115); Magnesium 1.9 mg/dL (1.6-2.6); Phosphorus 2.2 mg/dL (2.7-4.5); Potassium 3.1 mmol/L (3.3-5.1); Sodium 141 mmol/L (135-145); Total Protein 5.6 g/dL (6.5-8.0)
[2024-02-04] MEDS: dexmedeTOMIDidine HCL/NS 400 MCG/100 ML INFUS..BTL 28.05 MCG IVCONT (05:30)
[2024-02-04 05:43] LABS: Venous Blood Gas Refer to POC result
[2024-02-04] MEDS: Potassium Phosphate/NS 15 MMOL/250 ML PLAST..BAG 62.5 MMOL IV (05:50)
[2024-02-04] MEDS: vancomycin HCL 1,000 MG in 0.9 % Sodium Chloride 250 ML 270 MG IV (07:03)
[2024-02-04] MEDS: Albumin Human 25 % 100 ML IV ×2 (07:09→13:43)
[2024-02-04] MEDS: Chlorhexidine Gluc Oral Rinse 15 ML MOUTHWASH BUCCAL (07:54)
[2024-02-04 08:22] LABS: Glucose, Whole Blood 101 mg/dL (60-115)
--- NOTE | 2024-02-04 08:36 | P.PNCC_ITS ---
Subjective Subjective Date of Service: 02/04/24 Interval History: no significant overnight events; extubated early AM Critical Care Time (minutes): 90 Physical Exam 2 Vital Signs: Vital Signs: Last Vital Signs Temp 98.2 F 02/04/24 08:00 Pulse 74 02/04/24 08:00 Resp 23 H 02/04/24 08:00 BP 113/75 02/04/24 08:00 Pulse Ox 95 02/04/24 08:00 O2 Del Method Mechanical Ventil ation 02/04/24 08:00 FiO2 25 02/04/24 08:00 BMI result Body Mass Index 28.1 Const: Other: somnolent, though follows commands with verbal stimulus General: comfortable, no acute distress and well developed O rientation/consciousness: oriented to person and oriented to place HEENT: Head: Yes normal to inspection, Yes normocephalic and Yes atraumatic Eyes: General: appearance normal, both eyes and all related structures Neck: Neck: Yes normal visual inspection, Yes full ROM, Yes no meningeal signs, Yes trachea midline and Yes supple Chest: Chest palpation & inspection: normal inspection of the chest Resp: Other: some appreciable rhonchi; no appreciable rales, wheezing Effort & Inspection: normal respiratory effort Cardio: Rate: regular rate Rhythm: regular rhythm GI: Inspection: Yes normal to inspection, No Abdominal wall edema and No distended Palpation (GI): Soft to palpation, not firm, nontender, no guarding and not rigid : Male General Exam: Yes normal external exam Skin: General skin exam: no rashes or lesions noted Neuro: General: oriented to person, oriented to place, tone normal, moves all extremities, no meningeal signs and no focal motor deficits Extrem: General: Yes normal to inspection, Yes full ROM, Yes capillary refill normal and Yes no clubbing, cyanosis or edema Psych: Appearance: grossly normal Objective Data Labs 02/04/24 04:47 02/04/24 04:47 Labs: Laboratory Results - last 24 hr 02/03/24 02/03/24 02/03/24 07:55 08:20 12:38 WBC RBC Hgb Hct MCV MCH MCHC RDW Plt Count MPV Immature Gran % (Auto) Neut % (Auto) Lymph % (Auto) [place] % (Auto) Eos % (Auto) Baso % (Auto) Lymph # (Auto) [place] # (Auto) Eos # (Auto) Baso # (Auto) Abs Immat Gran (auto) Absolute Neuts (auto) Absolute Nucleated RBC Nucleated RBC % (auto) VBG pH VBG pCO2 VBG pO2 VBG HCO3 VBG O2 Saturation VBG Base Excess Sodium Potassium Chloride Carbon Dioxide Anion Gap BUN Creatinine Estim Creat Clear Calc Estimated GFR POC Glucose 146 H Random Glucose Lactic Acid F/U @ 2Hr 1.6 Calcium 7.6 L D Phosphorus Magnesium Total Bilirubin AST ALT Alkaline Phosphatase Total Protein Albumin HIV 1&2 Ab/P24 Ag 4thGn Nonreactive Blood Type A Positive Antibody Screen NEGATIVE 02/03/24 02/03/24 02/03/24 17:51 18:11 23:43 WBC RBC Hgb Hct MCV MCH MCHC RDW Plt Count MPV Immature Gran % (Auto) Neut % (Auto) Lymph % (Auto) [place] % (Auto) Eos % (Auto) Baso % (Auto) Lymph # (Auto) [place] # (Auto) Eos # (Auto) Baso # (Auto) Abs Immat Gran (auto) Absolute Neuts (auto) Absolute Nucleated RBC Nucleated RBC % (auto) VBG pH 7.44 H VBG pCO2 36 VBG pO2 51 VBG HCO3 24 VBG O2 Saturation 86.0 VBG Base Excess 1.1 Sodium Potassium Chloride Carbon Dioxide Anion Gap BUN Creatinine Estim Creat Clear Calc Estimated GFR POC Glucose 114 87 Random Glucose Lactic Acid F/U @ 2Hr Calcium Phosphorus Magnesium Total Bilirubin AST ALT Alkaline Phosphatase Total Protein Albumin HIV 1&2 Ab/P24 Ag 4thGn Blood Type Antibody Screen 02/04/24 02/04/24 02/04/24 02:18 04:12 04:46 WBC RBC Hgb Hct MCV MCH MCHC RDW Plt Count MPV Immature Gran % (Auto) Neut % (Auto) Lymph % (Auto) [place] % (Auto) Eos % (Auto) Baso % (Auto) Lymph # (Auto) [place] # (Auto) Eos # (Auto) Baso # (Auto) Abs Immat Gran (auto) Absolute Neuts (auto) Absolute Nucleated RBC Nucleated RBC % (auto) VBG pH 7.45 H VBG pCO2 39 VBG pO2 45 VBG HCO3 27 H VBG O2 Saturation 79.0 VBG Base Excess 3.8 Sodium Potassium Chloride Carbon Dioxide Anion Gap BUN Creatinine Estim Creat Clear Calc Estimated GFR POC Glucose 90 90 Random Glucose Lactic Acid F/U @ 2Hr Calcium Phosphorus Magnesium Total Bilirubin AST ALT Alkaline Phosphatase Total Protein Albumin HIV 1&2 Ab/P24 Ag 4thGn Blood Type Antibody Screen 02/04/24 02/04/24 04:47 08:17 WBC 11.2 H RBC 3.32 L Hgb 10.3 L Hct 29.5 L MCV 88.9 MCH 31.0 MCHC 34.9 RDW 14.1 Plt Count 155 L MPV 11.1 Immature Gran % (Auto) 0.3 Neut % (Auto) 65.4 Lymph % (Auto) 18.9 L [place] % (Auto) 12.7 H Eos % (Auto) 2.3 Baso % (Auto) 0.4 Lymph # (Auto) 2.1 [place] # (Auto) 1.4 H Eos # (Auto) 0.3 Baso # (Auto) 0.0 Abs Immat Gran (auto) 0.03 Absolute Neuts (auto) 7.3 Absolute Nucleated RBC 0.000 Nucleated RBC % (auto) 0.0 VBG pH VBG pCO2 VBG pO2 VBG HCO3 VBG O2 Saturation VBG Base Excess Sodium 141 Potassium 3.1 L Chloride 108 Carbon Dioxide 25 Anion Gap 11 L BUN 9 Creatinine 0.80 Estim Creat Clear Calc 116.3 Estimated GFR > 60 POC Glucose 101 Random Glucose 100 Lactic Acid F/U @ 2Hr Calcium 8.4 D Phosphorus 2.2 L Magnesium 1.9 Total Bilirubin 0.2 AST 66 H ALT 83 H Alkaline Phosphatase 43 Total Protein 5.6 L Albumin 3.2 L HIV 1&2 Ab/P24 Ag 4thGn Blood Type Antibody Screen Microbiology Microbiology Results: Microbiology 02/03/24 Unknown Urine Catheterized - Luna Catheter Urine Culture - Final No growth. 02/03/24 05:49 Blood - Venous Blood Culture - Preliminary No growth after 24 hours. 02/03/24 05:48 Blood - Venous Blood Culture - Preliminary No growth after 24 hours. 02/03/24 09:26 Tracheal Aspirate Gram Stain - Final 02/03/24 09:26 Tracheal Aspirate Sputum Culture - Preliminary Normal so far. Progress Note: A&P Assessment and plan (1) Acute hypoxic respiratory failure: Status: Acute (2) Narcotic overdose: Status: Acute (3) Polysubstance abuse: Status: Acute Plan Patient is a 43 Y M, undomiciled, with polysubstance misuse p/w acute hypoxic respiratory failure in setting of likely opioid overdose, intubated 02/02, extubated 02/03; ICU course c/b shock, acute renal insufficiency N: somnolent, though easily arousable with verbal stimulus CV: shock, likely distributive, improved R: acute hypoxic respiratory failure, likely d/t aspiration in setting of opioid overdose;, intubated, extubated; on HFNC, wean as tolerated GI: no acute issues; NPO : acute renal insufficiency, improved H: no acute issues; chemical DVT prophylaxis w/ heparin SQ ID: c/f septic shock, empiric vancomycin, cefepime E: hyperglycemia; to continue to monitor P: unable to assess S: no known contacts; to follow-up social work Quality Stroke Does the patient have a stroke diagnosis?: No VTE Prior VTE?: No VTE Risk Level:: Medical - moderate - high VTE Device Contraindication: N/A - Device Ordered VTE Drug Contraindication: N/A - Med Ordered
--- NOTE | 2024-02-04 09:01 | PC.NURSE ---
Sedation reduced beginning at 0800, see MAR for details. MD decided to extubate at 0825. Pt able to follow commands and indicate yes/no. MD and RT at bedside. Tubes removed at 0830. Pt had strong cough, oral suction provided. Pt was placed on 7L via NC, eventually moved to HFNC at 40L and 50% fio2.
[2024-02-04] MEDS: dexmedeTOMIDidine HCL/NS 400 MCG/100 ML INFUS..BTL 14.96 MCG IVCONT (09:56)
--- NOTE | 2024-02-04 12:25 | MHC.CM.PN ---
PT WAS EXTUBATED SUCCESSFULLY AND NOW ABLE TO PARTICIPATE IN CM ASSESSMENT. PT IS HOMELESS AND WOULD LIKE TO GO TO A RESPITE ON DC. PT HAS NO PCP. PT WAS ABLE TO NAME A HCP, FORM COMPLETED AND ADDED TO CHART. DP: PT WOULD LIKE TO GO TO A RESPITE ON DC, WILL NEED TO BE SEEN BY ADDICTION MEDICINE. PT WILL NEED TRANSPORT SET UP AT DC. CM WILL CONTINUE TO FOLLOW FOR ANY CHANGE TO DC PLAN/NEEDS.
[2024-02-04] MEDS: Albuterol/Iprat 2.5/0.5MG 3 ML AMPUL.NEB INHALE ×3 (13:35→20:07)
[2024-02-04] MEDS: Acetaminophen 325 MG TABLET 650 MG PO (13:42)
[2024-02-04] MEDS: HYDROmorphone HCl 0.5 MG/0.5 ML SYRINGE IVPUSH ×3 (14:29→22:45)
[2024-02-04 17:26] LABS: Vancomycin Random 7.7 mcg/mL (15-20)
--- NOTE | 2024-02-04 17:41 | HE.PHANOTE ---
Re: Vanco Renal function has improved. Trough returned at 7.7 mg/dl. Increased dose to 1250mg Q8H, with predicted 576 mg/L, and trough of 15.8 mg/L. Next trough to be drawn at 02/04 at 17:00.
[2024-02-04] MEDS: vancomycin HCL 1,250 MG in 0.9 % Sodium Chloride 250 ML 166.67 MG IV (18:28)
[2024-02-04] MEDS: dexmedeTOMIDidine HCL/NS 400 MCG/100 ML INFUS..BTL 7.48 MCG IVCONT (18:28)
[2024-02-04 20:13] LABS: Anion Gap 11 (12-20); Blood Urea Nitrogen 7 mg/dL (9-16); Calcium 8.2 mg/dL (8.4-10.2); Carbon Dioxide 26 mmol/L (22-29); Chloride 106 mmol/L (96-108); Creatinine Clr Calc Pharmacy 153.7; Estimated Glomerular Filt Rate > 60; Glucose Random 100 mg/dL (60-115); Magnesium 1.8 mg/dL (1.6-2.6); Phosphorus 3.7 mg/dL (2.7-4.5); Potassium 3.6 mmol/L (3.3-5.1); Sodium 139 mmol/L (135-145)
[2024-02-05] VITALS (26 sets, daily range): BP systolic 116–168; BP diastolic 69–96; PULSE 80–97; RESP 18–26; TEMP 36.4–37.6; O2SAT 90–98; BMI 28.8
[2024-02-05] MEDS: vancomycin HCL 1,250 MG in 0.9 % Sodium Chloride 250 ML 166.67 MG IV (03:31)
[2024-02-05] MEDS: HYDROmorphone HCl 0.5 MG/0.5 ML SYRINGE IVPUSH ×6 (04:11→22:35)
[2024-02-05 05:01] LABS: Basophils Percent Auto 0.3 % (0-2); Eosinophils Absolute Auto 0.3 X10*3/uL (0.0-0.4); Eosinophils Percent Auto 2.5 % (0-4); Imm Gran Abs Auto 0.06 X10*3/uL (0.00-0.03); Imm Gran Pct Auto 0.6 % (0.0-0.4); Lymphocytes Absolute Auto 1.9 X10*3/uL (1.2-4.9); Lymphocytes Percent Auto 17.2 % (20-40); MANUAL DIFF FLAG SCAN; Mean Corpuscular HGB Conc 34.5 g/dl (31.0-36.0); Mean Corpuscular Hemoglobin 31.3 pg (27.0-33.0); Mean Corpuscular Volume 90.9 fL (80.0-98.0); Monocytes Absolute Auto 1.6 X10*3/uL (0.1-1.2); Monocytes Percent Auto 14.9 % (2-11); Neutrophils Percent Auto 64.5 % (45-73); Platelet Count 168 X10*3/uL (160-400); Red Blood Count 3.19 X10*6/uL (4.60-5.80); Red Cell Distribution Width 14.2 % (11.0-16.0); SCAN SMEAR FLAG 1; White Blood Count 10.8 X10*3/uL (4.8-10.8)
[2024-02-05 05:16] LABS: Alanine Aminotransferase 82 U/L (0-40); Albumin Level 3.3 g/dL (3.5-5.0); Alkaline Phosphatase 67 U/L (39-117); Anion Gap 11 (12-20); Aspartate Amino Transferase 64 U/L (5-37); Bilirubin Total 0.8 mg/dL (0.0-1.0); Blood Urea Nitrogen 8 mg/dL (9-16); Calcium 9.6 mg/dL (8.4-10.2); Carbon Dioxide 26 mmol/L (22-29); Chloride 105 mmol/L (96-108); Creatinine Clr Calc Pharmacy 149.2; Estimated Glomerular Filt Rate > 60; Glucose Random 93 mg/dL (60-115); Magnesium 1.8 mg/dL (1.6-2.6); Phosphorus 3.1 mg/dL (2.7-4.5); Potassium 3.3 mmol/L (3.3-5.1); Sodium 139 mmol/L (135-145); Total Protein 5.6 g/dL (6.5-8.0)
[2024-02-05 05:38] LABS: SLIDE REVIEW VERIFIED
[2024-02-05] MEDS: Pantoprazole Sodium 40 MG/10 ML VIAL IVPUSH (06:05)
[2024-02-05] MEDS: Potassium Chloride Packet 20 MEQ PACKET 40 MEQ PO (06:05)
[2024-02-05] MEDS: cefEPime HCl 2 GM in 0.9 % Sodium Chloride 50 ML IV (06:14)
[2024-02-05] MEDS: Albuterol/Iprat 2.5/0.5MG 3 ML AMPUL.NEB INHALE ×4 (08:07→20:48)
[2024-02-05] MEDS: Heparin Sodium,Porcine 5,000 UNIT/ML VIAL 5000 UNIT SUBCUT ×3 (08:30→22:35)
--- NOTE | 2024-02-05 09:39 | P.PNCC_ITS ---
Subjective Subjective Date of Service: 02/05/24 Interval History: 43-year-old gentleman with underlying polysubstance abuse recent admission to [facility] for opioid overdose complicated by aspiration pneumonitis versus pneumonia with acute hypoxic respiratory failure who left against medical advice on 02/02/2024 via admitted on 02/02/2024 with another episode of polysubstance abuse complicated by aspiration requiring intubation and ventilatory support, extubated uneventfully on 02/04/2024. No events overnight. Critical Care Time (minutes): 0 Physical Exam 2 Vital Signs: Vital Signs: Last Vital Signs Temp 98.8 F 02/05/24 09:00 Pulse 81 02/05/24 09:00 Resp 19 02/05/24 09:00 BP 164/95 H 02/05/24 09:00 Pulse Ox 95 02/05/24 09:00 O2 Del Method High Flow Nasal C annula 02/05/24 09:00 O2 Flow Rate 40 02/05/24 09:00 FiO2 40 02/05/24 09:00 BMI result Body Mass Index 28.8 Const: General: no acute distress, alert and awake Eyes: Sclerae: sclerae normal EOM: EOMs intact bilaterally Neck: Neck: Yes no lymphadenopathy, Yes trachea midline and Yes supple Resp: Effort & Inspection: normal respiratory effort and no respiratory distress Auscultation: clear to auscultation bilaterally Cardio: Rate: regular rate Rhythm: regular rhythm Heart sounds: no gallops, no murmurs and no rubs GI: Palpation (GI): Soft to palpation and Other GI palpation findings present ( Nontender) Auscultation: normal bowel sounds Extrem: General: Yes no pedal edema, No clubbing and No cyanosis Objective Data Labs 02/05/24 04:50 02/05/24 04:50 Labs: Laboratory Results - last 24 hr 02/04/24 02/04/24 02/04/24 17:00 19:39 19:39 WBC RBC Hgb Hct MCV MCH MCHC RDW Plt Count MPV Immature Gran % (Auto) Neut % (Auto) Lymph % (Auto) [place] % (Auto) Eos % (Auto) Baso % (Auto) Lymph # (Auto) [place] # (Auto) Eos # (Auto) Baso # (Auto) Abs Immat Gran (auto) Absolute Neuts (auto) Absolute Nucleated RBC Nucleated RBC % (auto) Smear Tech's Comments Hold Purple Top SEE NOTE Sodium 139 Potassium 3.6 Chloride 106 Carbon Dioxide 26 Anion Gap 11 L BUN 7 L Creatinine 0.66 Estim Creat Clear Calc 153.7 Estimated GFR > 60 Random Glucose 100 Calcium 8.2 L Phosphorus 3.7 Magnesium 1.8 Cancelled Total Bilirubin AST ALT Alkaline Phosphatase Total Protein Albumin Random Vancomycin 7.7 L 02/05/24 04:50 WBC 10.8 RBC 3.19 L Hgb 10.0 L Hct 29.0 L MCV 90.9 MCH 31.3 MCHC 34.5 RDW 14.2 Plt Count 168 MPV 11.0 Immature Gran % (Auto) 0.6 H Neut % (Auto) 64.5 Lymph % (Auto) 17.2 L [place] % (Auto) 14.9 H Eos % (Auto) 2.5 Baso % (Auto) 0.3 Lymph # (Auto) 1.9 [place] # (Auto) 1.6 H Eos # (Auto) 0.3 Baso # (Auto) 0.0 Abs Immat Gran (auto) 0.06 H Absolute Neuts (auto) 7.0 Absolute Nucleated RBC 0.000 Nucleated RBC % (auto) 0.0 Smear Tech's Comments VERIFIED Hold Purple Top Sodium 139 Potassium 3.3 Chloride 105 Carbon Dioxide 26 Anion Gap 11 L BUN 8 L Creatinine 0.68 Estim Creat Clear Calc 149.2 Estimated GFR > 60 Random Glucose 93 Calcium 9.6 D Phosphorus 3.1 Magnesium 1.8 Total Bilirubin 0.8 AST 64 H ALT 82 H Alkaline Phosphatase 67 Total Protein 5.6 L Albumin 3.3 L Random Vancomycin Microbiology Microbiology Results: Microbiology 02/03/24 05:49 Blood - Venous Blood Culture - Preliminary No growth after 48 hours. 02/03/24 05:48 Blood - Venous Blood Culture - Preliminary No growth after 48 hours. 02/03/24 Unknown Urine Catheterized - Luna Catheter Urine Culture - Final No growth. 02/03/24 09:26 Tracheal Aspirate Gram Stain - Final 02/03/24 09:26 Tracheal Aspirate Sputum Culture - Preliminary Normal so far. Progress Note: A&P Assessment and plan (1) Acute hypoxic respiratory failure: Status: Acute (2) Pulmonary aspiration: Status: Acute (3) Multifocal pneumonia: Status: Acute (4) Polysubstance abuse: Status: Acute Plan Assessment: 43-year-old gentleman with underlying polysubstance abuse readmitted with hypoxic respiratory failure requiring ventilatory support secondary to pulmonary aspiration on the background of polysubstance abuse, extubated 02/04/2024. Plan: Neuro: No acute issues. Cardiac: No acute issues. Pulmonary: Aspiration pneumonitis versus pneumonia on the background polysubstance abuse initially requiring ventilatory support, extubated 02/04/2024. Continue to titrate off supplemental oxygen as tolerated. Renal: LYNN resolved. Non oliguric. Continue to monitor renal indices and urine output. Endo: No acute issues. GI: No acute issues. ID: Empiric coverage for pneumonia with Levaquin. Heme/Onc: No acute issues. Psych: No acute issues. Miscellaneous: No acute issues. Prophylaxis: Heparin Diet: Regular Quality Stroke Does the patient have a stroke diagnosis?: No VTE Prior VTE?: No VTE Risk Level:: Medical - moderate - high VTE Device Contraindication: N/A - Device Ordered VTE Drug Contraindication: N/A - Med Ordered
[2024-02-05] MEDS: levoFLOXacin/D5W 750 MG/150 ML PIGGYBACK 100 MG IV (10:24)
--- NOTE | 2024-02-05 13:14 | MHC.CM.PN ---
Pt continues on high flow O2 in ICU: waiting for medical clearance and will then be seen by addiction services for placement into respite/detox center. Pt declares self as homeless and does not presently have a PCP. CM to follow for d/c needs.
--- NOTE | 2024-02-05 13:45 | P.EN_ITS ---
Event Note Date of Service: 02/05/24 Event Note: 43 Y M undomiciled, with polysubstance misuse and recent admission to [facility] on 01/30 for opioid overdose, aspiration pneumonia and acute hypoxic respiratory failure, ultimately discharged 02/01; patient reportedly found outside 02/01 PM unresponsive, hypoxic, given naloxone w/o improvement; in the emergency department, patient intubated, found to have multi-focal pneumonia, CT head and C-spine CT were unremarkable. Acute hypoxic respiratory failure due to aspiration pneumonia with a background of polysubstance abuse, admitted to ICU , extubated on 02/03 On high-flow oxygen 45%, Wean oxygen as tolerated Continue IV Levaquin and updraft treatment LYNN resolved Polysubstance abuse U tox positive for opiates, fentanyl, benzo and marijuana, will consult Addiction Medicine. DVT prophylaxis with heparin Full code Time Spent With Patient Time: Total time managing care of this patient today ____ minutes.
[2024-02-06] VITALS (13 sets, daily range): BP systolic 157–176; BP diastolic 83–103; PULSE 73–98; RESP 16–22; TEMP 36.1–37; O2SAT 88–96; BMI 27.0
--- NOTE | 2024-02-06 00:22 | PC.NURSE ---
REPORT CALLED TO AGA..TRANSFERRED VIA BED TO [facility] BY [facility] [employer]
[2024-02-06] MEDS: HYDROmorphone HCl 0.5 MG/0.5 ML SYRINGE IVPUSH ×5 (01:14→19:56)
[2024-02-06] MEDS: Albuterol/Iprat 2.5/0.5MG 3 ML AMPUL.NEB INHALE ×4 (07:34→19:35)
[2024-02-06] MEDS: Heparin Sodium,Porcine 5,000 UNIT/ML VIAL 5000 UNIT SUBCUT ×3 (08:45→23:46)
[2024-02-06] MEDS: levoFLOXacin/D5W 750 MG/150 ML PIGGYBACK 100 MG IV (08:49)
[2024-02-06 09:41] LABS: MANUAL DIFF FLAG NO
[2024-02-06 09:47] LABS: Basophils Absolute Auto 0.1 X10*3/uL (0.0-0.2); Basophils Percent Auto 0.4 % (0-2); Eosinophils Absolute Auto 0.1 X10*3/uL (0.0-0.4); Eosinophils Percent Auto 0.6 % (0-4); Hematocrit 37.5 % (42.0-52.0); Hemoglobin 12.6 g/dl (14.0-18.0); Imm Gran Pct Auto 0.6 % (0.0-0.4); Lymphocytes Absolute Auto 1.1 X10*3/uL (1.2-4.9); Lymphocytes Percent Auto 7.3 % (20-40); Mean Corpuscular HGB Conc 33.6 g/dl (31.0-36.0); Mean Corpuscular Hemoglobin 30.5 pg (27.0-33.0); Mean Corpuscular Volume 90.8 fL (80.0-98.0); Mean Platelet Volume 11.1 fL (9.4-12.4); Monocytes Absolute Auto 1.3 X10*3/uL (0.1-1.2); Monocytes Percent Auto 8.2 % (2-11); Neutrophils Absolute Auto 12.8 x10*3/uL (2.0-8.3); Neutrophils Percent Auto 82.9 % (45-73); Platelet Count 195 X10*3/uL (160-400); Red Blood Count 4.13 X10*6/uL (4.60-5.80); Red Cell Distribution Width 14.3 % (11.0-16.0); White Blood Count 15.4 X10*3/uL (4.8-10.8)
[2024-02-06 09:47] LABS: VBG Base Excess 3.2 mmol/L; VBG HCO3 23 mmol/L (22-26); VBG pCO2 25 mmHg; VBG pH 7.57 (7.32-7.43); VBG pO2 67 mmHg
[2024-02-06 09:48] LABS: Venous Blood Gas Refer to POC result
[2024-02-06] MEDS: oxyCODONE HCl Immed Release 5 MG TABLET PO ×3 (10:14→21:17)
[2024-02-06] MEDS: Omeprazole 20 MG CAPSULE.DR PO (10:15)
[2024-02-06] MEDS: Famotidine/PF 20 MG/2 ML VIAL IVPUSH (10:15)
[2024-02-06 10:19] LABS: Albumin Level 3.7 g/dL (3.5-5.0); Anion Gap 16 (12-20); Blood Urea Nitrogen 10 mg/dL (9-16); Carbon Dioxide 21 mmol/L (22-29); Chloride 105 mmol/L (96-108); Creatinine Clr Calc Pharmacy 147.7; Estimated Glomerular Filt Rate > 60; Glucose Random 114 mg/dL (60-115); Phosphorus 2.3 mg/dL (2.7-4.5); Potassium 3.5 mmol/L (3.3-5.1); Sodium 138 mmol/L (135-145)
--- NOTE | 2024-02-06 10:36 | MHC.RECOVRN ---
Met with pt in 468 after consult placed to Addiction Medicine for polysubstance use. Pt had presented to the ED on 02/02 after being found unresponsive, pt had been intubated and admitted to ICU, extubated on 02/03. Pt now on IMC with acute hypoxic respiratory failure due to aspiration pneumonia. Of note, pt had also been admitted 01/30-02/01 after an overdose and presented 02/01 after an overdose. Pts UDS positive for opiates, fentanyl, benzodiazepines, THC. Pt sitting in bed, awake, alert, difficult to engage in conversation, irritable. When asked about events leading up to current hospitalization pt states I don't know. Pt reports he might have taken an illicit pill. Pt denies withdrawal symptoms currently. Educated pt on drug supply/fentanyl as well as pressed pills and risk for overdose. Educated pt on fentanyl test strips. Pt denies using substances other than marijuana. Pt reports he has been to [facility] and [facility] in the past to get off the street. Pt reports using maybe fentanyl to be appropriate for those levels of care. Pt reports he has also been to respite. In regards to discharge planning, pt declines discussing current housing situation and also declines referrals for further [facility] treatment. Pt denies questions or concerns for t/w. Discussed with Kelly Parrish APRN.
--- NOTE | 2024-02-06 13:53 | P.PNIM_ITS ---
Subjective Subjective Date of Service: 02/06/24 Interval History: Patient complaining of epigastric pain, back pain, decreased by mouth intake, denies fever, no chills, no fevers, no chills, no acute issues overnight. Review of Systems All other symptoms reviewed and negative. Physical Exam 2 Vital Signs: Vital Signs: Last Vital Signs Temp 97.0 F 02/06/24 11:19 Pulse 73 02/06/24 11:22 Resp 16 02/06/24 11:22 BP 157/85 H 02/06/24 11:19 Pulse Ox 88 L 02/06/24 11:19 O2 Del Method Room Air 02/06/24 11:19 O2 Flow Rate 3 02/06/24 04:52 FiO2 45 02/05/24 19:32 BMI result Body Mass Index 27.0 Const: Other: General awake alert x3, appears anxious . Neck supple no JVD. CVS regular rate rhythm, Respiratory lungs clear to auscultation, no respiratory distress, no wheeze, no rhonchi. Gastrointestinal abdomen soft, mild epigastric tenderness, bowel sounds audible Back tenderness to palpation b/l lumbar paravertebral muscle, no redness swelling or spasm Extremities no edema. Neuro non focal Skin no rash Psych anxious appearing Objective Data Active Medications Acetaminophen (Acetaminophen 325 Mg Tablet) 650 mg PO Q6H PRN PRN Reason: Pain, Mild (Pain Scale 1-3) Last Admin: 02/04/24 13:42 Dose: 650 mg Documented By: DULCE Albuterol/Ipratropium (Albuterol/Iprat 2.5/0.5mg 3 Ml Ampul.Neb) 3 ml INHALE RQ4H WHILE AWAKE [facility] Last Admin: 02/06/24 11:19 Dose: 3 ml Documented By: TEE Glucose (Glucose Gel 15 Gm Gel..Gram.) 15 gm PO Q15M PRN; Protocol PRN Reason: per Hypoglycemia Standing Ord. Heparin Sodium (Porcine) (Heparin Sodium,Porcine 5,000 Unit/Ml Vial) 5,000 unit SUBCUT Q8H [facility] Last Admin: 02/06/24 08:45 Dose: 5,000 unit Documented By: LEOBARDO Hydromorphone HCl (Hydromorphone Hcl 0.5 Mg/0.5 Ml Syringe) 0.5 mg IVPUSH Q4H PRN; Protocol PRN Reason: Pain, Moderate(Pain Scale 4-6) Last Admin: 02/06/24 12:08 Dose: 0.5 mg Documented By: LEOBADRO Dextrose (D10) 250 mls @ 750 mls/hr IV Q15M PRN; Protocol PRN Reason: per Hypoglycemia Standing Ord. Levofloxacin (Levaquin) 750 mg in 150 mls @ 100 mls/hr IV Q24H [facility] Last Infusion: 02/06/24 10:22 Dose: Infused Documented By: LEOBARDO Omeprazole (Omeprazole 20 Mg Capsule.Dr) 20 mg PO DAILY@0630 [facility] Last Admin: 02/06/24 10:15 Dose: 20 mg Documented By: LEOBARDO Ondansetron HCl (Ondansetron Hcl 4 Mg/2 Ml Vial) 4 mg IVPUSH Q4H PRN PRN Reason: Nausea and Vomiting Oxycodone HCl (Oxycodone Hcl Immed Release 5 Mg Tablet) 5 mg PO Q4H PRN PRN Reason: Pain, Moderate(Pain Scale 4-6) Last Admin: 02/06/24 10:14 Dose: 5 mg Documented By: LEOBARDO Trolamine Salicylate (Trolamine Salicylate 10 % Cream 85 Gm Tube) 1 appl TOPICAL BID PRN; Protocol PRN Reason: mid back Labs 02/06/24 09:35 02/06/24 09:35 Labs: Laboratory Results - last 24 hr 02/06/24 02/06/24 09:35 09:42 MCV 90.8 MCH 30.5 MCHC 33.6 RDW 14.3 Plt Count 195 MPV 11.1 Immature Gran % (Auto) 0.6 H Neut % (Auto) 82.9 H Lymph % (Auto) 7.3 L [place] % (Auto) 8.2 Eos % (Auto) 0.6 Baso % (Auto) 0.4 Lymph # (Auto) 1.1 L [place] # (Auto) 1.3 H Eos # (Auto) 0.1 Baso # (Auto) 0.1 Abs Immat Gran (auto) 0.10 H Absolute Neuts (auto) 12.8 H Absolute Nucleated RBC 0.000 Nucleated RBC % (auto) 0.0 VBG pH 7.57 H VBG pCO2 25 VBG pO2 67 VBG HCO3 23 VBG O2 Saturation 95.0 VBG Base Excess 3.2 Anion Gap 16 Estim Creat Clear Calc 147.7 Estimated GFR > 60 Random Glucose 114 Calcium 9.0 D Phosphorus 2.3 L Magnesium 2.0 Albumin 3.7 Microbiology Microbiology Results: Microbiology 02/03/24 09:26 Gram Stain - Final Tracheal Aspirate Sputum Culture - Final Assessment and Plan (1) Pulmonary aspiration: Status: Acute (2) Acute hypoxic respiratory failure: Status: Acute (3) LYNN (acute kidney injury): Status: Acute Plan 43 Y M undomiciled, with polysubstance misuse and recent admission to [facility] on 01/30 for opioid overdose, aspiration pneumonia and acute hypoxic respiratory failure, ultimately discharged 02/01; patient reportedly found outside 02/01 PM unresponsive, hypoxic, given naloxone w/o improvement; in the emergency department, patient intubated, found to have multi-focal pneumonia, CT head and C-spine CT were unremarkable. Acute hypoxic respiratory failure due to aspiration pneumonia with a background of polysubstance abuse, admitted to ICU , extubated on 02/03 High-flow weaned off currently on nasal cannula Wean oxygen as tolerated not on home oxygen Continue IV Levaquin and updraft treatment LYNN resolved Leukocytosis likely reactive no fevers on IV antibiotic follow CBC Polysubstance abuse U tox positive for opiates, fentanyl, benzo and marijuana, Follow Addiction Medicine consult. Generalized pain, continue IV Dilaudid ,added oxycodone, hot pack, Aspercreme. Support provided Added GI prophylaxis with Prilosec Transaminitis LFTs trending down, no right upper quadrant pain follow LFTs DVT prophylaxis with heparin Full code Patient need continued inpatient hospitalization for hypoxia, aspiration pneumonia requiring IV antibiotic and polysubstance abuse requiring expert consultation. Quality Stroke Does the patient have a stroke diagnosis?: No VTE Prior VTE?: No VTE Risk Level:: Medical - moderate - high VTE Device Contraindication: N/A - Device Ordered VTE Drug Contraindication: N/A - Med Ordered
--- NOTE | 2024-02-06 14:30 | MHC.CM.PN ---
EMR reviewed and per MD rounds, pt is not medically cleared for D/C due to management of aspiration pneumonia with hypoxia. This CM met with pt to discuss D/C plan, discussed going to homeless care home, pt stated he doesn't know what he wants to do.
[2024-02-07] VITALS (9 sets, daily range): BP systolic 138–180; BP diastolic 86–100; PULSE 77–111; RESP 16–22; TEMP 36–36.8; O2SAT 90–99
[2024-02-07] MEDS: clonazePAM 1 MG TABLET PO ×2 (00:30→23:04)
[2024-02-07] MEDS: Omeprazole 20 MG CAPSULE.DR PO (05:17)
[2024-02-07 07:17] LABS: Hematocrit 34.4 % (42.0-52.0); Hemoglobin 11.7 g/dl (14.0-18.0); Mean Corpuscular Hemoglobin 30.1 pg (27.0-33.0); Mean Corpuscular Volume 88.4 fL (80.0-98.0); Mean Platelet Volume 11.4 fL (9.4-12.4); Platelet Count 283 X10*3/uL (160-400); Red Blood Count 3.89 X10*6/uL (4.60-5.80); Red Cell Distribution Width 14.3 % (11.0-16.0); White Blood Count 12.9 X10*3/uL (4.8-10.8)
[2024-02-07] MEDS: oxyCODONE HCl Immed Release 5 MG TABLET PO ×3 (07:19→20:06)
[2024-02-07] MEDS: Gabapentin 400 MG CAPSULE 800 MG PO ×3 (07:19→20:06)
[2024-02-07] MEDS: buPROPion HCL 100 MG TABLET PO (07:19)
[2024-02-07] MEDS: Heparin Sodium,Porcine 5,000 UNIT/ML VIAL 5000 UNIT SUBCUT ×3 (07:20→23:04)
[2024-02-07] MEDS: levoFLOXacin/D5W 750 MG/150 ML PIGGYBACK 100 MG IV (10:25)
--- NOTE | 2024-02-07 11:38 | P.CDIM_ITS ---
PROVIDER RESPONSE TEXT: To clarify, the appropriate diagnosis supported by the clinical indicators: Other (explain): acute distributive shock secondary to pulmonary aspiration, now resolved QUERY TEXT: PHYSICIAN'S DOCUMENTATION REQUEST Date of Query: 02/07/2024 07:29 AM EDT Patient Name: Kofi Samayoa Admit Date: 02/03/2024 Dear Piedad Villalobos, A review of the medical record indicates additional documentation may be needed. Please review below and update the documentation accordingly. Clinical indicators: ICU progress note under the Plan dated 02/02 & 02/03 - Shock, likely distributive, improved ID: c/f septic shock, empiric vancomycin, cefepime Temp 90.8 WBC 15.7 HR 107 LA 8.7 RR 28 Intubated 02/02, extubated 02/03, ICU course c/b shock, acute renal insufficiency Sepsis/septic shock Systemic manifestations of infection, with 2 or more SIRS criteria which include: Fever > 100.4?F or hypothermia < 96.8?F Leukocytosis - WBC > 12,000 or leukopenia, WBC < 4,000, or > 10% bands Tachycardia- > 90 beats/minute Tachypnea- RR > 20 breaths/minute or PaCO2 < 32mmHg Based on the above information, consistency of the noted septic shock, if agree: Sepsis resolved, suspected, possible, probable Severe sepsis with septic shock resolved, possible, probable, suspected Other or not treating sepsis Other (explain) Clinically unable to determine (explain) Thank you, Anabela Fabian, CCS, CDIS Use of terms such as suspected, likely, concern for, or probable (associated with a specific diagnosi s that is being evaluated, monitored, or treated as if it exists) are acceptable and can be coded in the inpatient se tting, when documented at the time of discharge. Please use your independent medical judgment in providing your response. THIS QUERY IS PART OF THE PERMANENT MEDICAL RECORD
--- NOTE | 2024-02-07 11:41 | P.CDIM_ITS ---
PROVIDER RESPONSE TEXT: To clarify, the appropriate diagnosis supported by the clinical indicators: Toxic metabolic QUERY TEXT: PHYSICIAN'S DOCUMENTATION REQUEST Date of Query: 02/07/2024 07:39 AM EDT Patient Name: Kofi Samayoa Admit Date: 02/03/2024 Dear Piedad Villalobos, A review of the medical record indicates additional documentation may be needed. Please review below and update the documentation accordingly. Clinical Indicators: ED 02/02 - altered mental status, confused, found unresponsive outside of the hospital, admitted for d rug overdose. No response from Narcan suspect more medical or combination of pneumonia/hypoxia and continued opiate use. Clinical impression: encephalopathy, acute ICU H&P: 02/02 - Assessment and plan: encephalopathy, acute Based on the above, please further specify, in the Progress Notes, the known or suspected type of the documented encephalopathy: Metabolic Septic Toxic Toxic metabolic After study encephalopathy is ruled out Other (explain) Clinically unable to determine (explain) Thank you, Anabela Fabian, CCS, CDIS Use of terms such as suspected, likely, concern for, or probable (associated with a specific diagnosi s that is being evaluated, monitored, or treated as if it exists) are acceptable and can be coded in the inpatient se tting, when documented at the time of discharge. Please use your independent medical judgment in providing your response. THIS QUERY IS PART OF THE PERMANENT MEDICAL RECORD
--- NOTE | 2024-02-07 11:57 | MHC.CM.PN ---
EMR reviewed and per MD rounds, pt is not medically cleared for D/C pending PT eval and continued management of aspiration pneumonia/hypoxia. PT eval was done and they are recommending STR. STR referrals placed to [facility] and [facility] via [facility].
[2024-02-07] MEDS: HYDROmorphone HCl 0.5 MG/0.5 ML SYRINGE IVPUSH (12:13)
--- NOTE | 2024-02-07 15:06 | HO.PM.IMPN ---
Subjective Subjective Date of Service: 02/07/24 Interval History: Feeling better than yesterday but still complaining of back pain, weakness, tiredness, denies cough, no shortness of breath, no fevers, no chills, no acute issues overnight. Review of Systems All other system reviewed and negative. Physical Exam Vital Signs: Vital Signs: Last Vital Signs Temp 98.1 F 02/07/24 11:07 Pulse 111 H 02/07/24 11:09 Resp 20 02/07/24 11:07 BP 160/86 H 02/07/24 11:07 Pulse Ox 90 L 02/07/24 11:09 O2 Del Method Room Air 02/07/24 11:07 O2 Flow Rate 3 02/06/24 04:52 FiO2 45 02/05/24 19:32 BMI result Body Mass Index 27.0 Const: Other: General awake alert x3, appears anxious/no acute distress . Neck supple no JVD. CVS regular rate rhythm, Respiratory lungs clear to auscultation, diminished, no respiratory distress, no wheeze, no rhonchi. Gastrointestinal abdomen soft, mild epigastric tenderness, bowel sounds audible Back tenderness to palpation with superficial touch b/l thoracic, lumbar paravertebral muscle, no redness swelling or spasm Extremities no edema. Neuro non focal Skin no rash Psych anxious appearing Objective Data Active Medications Acetaminophen (Acetaminophen 325 Mg Tablet) 650 mg PO Q6H PRN PRN Reason: Pain, Mild (Pain Scale 1-3) Last Admin: 02/04/24 13:42 Dose: 650 mg Documented By: DULCE Albuterol/Ipratropium (Albuterol/Iprat 2.5/0.5mg 3 Ml Ampul.Neb) 3 ml INHALE RQ4H WHILE AWAKE [facility] Last Admin: 02/07/24 11:26 Dose: Not Given Documented By: FABIAN Non-Admin Reason: Patient Refused Bupropion HCl (Bupropion Hcl 100 Mg Tablet) 100 mg PO DAILY [facility] Last Admin: 02/07/24 07:19 Dose: 100 mg Documented By: LEOBARDO Clonazepam (Clonazepam 1 Mg Tablet) 1 mg PO BID PRN PRN Reason: anxiety Last Admin: 02/07/24 00:30 Dose: 1 mg Documented By: ELOISA Gabapentin (Gabapentin 400 Mg Capsule) 800 mg PO TID [facility] Last Admin: 02/07/24 07:19 Dose: 800 mg Documented By: LEOBARDO Glucose (Glucose Gel 15 Gm Gel..Gram.) 15 gm PO Q15M PRN; Protocol PRN Reason: per Hypoglycemia Standing Ord. Heparin Sodium (Porcine) (Heparin Sodium,Porcine 5,000 Unit/Ml Vial) 5,000 unit SUBCUT Q8H [facility] Last Admin: 02/07/24 07:20 Dose: 5,000 unit Documented By: LEOBARDO Hydromorphone HCl (Hydromorphone Hcl 0.5 Mg/0.5 Ml Syringe) 0.5 mg IVPUSH Q4H PRN; Protocol PRN Reason: Pain, Moderate(Pain Scale 4-6) Last Admin: 02/07/24 12:13 Dose: 0.5 mg Documented By: LEOBARDO Dextrose (D10) 250 mls @ 750 mls/hr IV Q15M PRN; Protocol PRN Reason: per Hypoglycemia Standing Ord. Levofloxacin (Levaquin) 750 mg in 150 mls @ 100 mls/hr IV Q24H [facility] Last Infusion: 02/07/24 12:12 Dose: Infused Documented By: LEOBARDO Omeprazole (Omeprazole 20 Mg Capsule.Dr) 20 mg PO DAILY@0630 [facility] Last Admin: 02/07/24 05:17 Dose: 20 mg Documented By: ELOISA Ondansetron HCl (Ondansetron Hcl 4 Mg/2 Ml Vial) 4 mg IVPUSH Q4H PRN PRN Reason: Nausea and Vomiting Oxycodone HCl (Oxycodone Hcl Immed Release 5 Mg Tablet) 5 mg PO Q4H PRN PRN Reason: Pain, Moderate(Pain Scale 4-6) Last Admin: 02/07/24 07:19 Dose: 5 mg Documented By: LEOBARDO Trolamine Salicylate (Trolamine Salicylate 10 % Cream 85 Gm Tube) 1 appl TOPICAL BID PRN; Protocol PRN Reason: mid back Labs 02/07/24 06:41 02/06/24 09:35 Labs: Laboratory Results - last 24 hr 02/07/24 06:41 MCV 88.4 MCH 30.1 MCHC 34.0 RDW 14.3 Plt Count 283 D MPV 11.4 Absolute Nucleated RBC 0.000 Nucleated RBC % (auto) 0.0 Assessment and Plan (1) Pulmonary aspiration: Status: Acute (2) Acute hypoxic respiratory failure: Status: Acute (3) LYNN (acute kidney injury): Status: Acute Plan 43 Y M undomiciled, with polysubstance misuse and recent admission to [facility] on 01/30 for opioid overdose, aspiration pneumonia and acute hypoxic respiratory failure, ultimately discharged 02/01; patient reportedly found outside 02/01 PM unresponsive, hypoxic, given naloxone w/o improvement; in the emergency department, patient intubated, found to have multi-focal pneumonia, CT head and C-spine CT were unremarkable. Acute distributive shock secondary to pulmonary aspiration: now resolved Acute toxic metabolic encephalopathy likely multifactorial due to opiate overdose/hypoxia/pneumonia; resolved Acute hypoxic respiratory failure due to aspiration pneumonia with a background of polysubstance abuse, admitted to ICU , extubated on 02/03 High-flow weaned off currently on nasal cannula Wean oxygen as tolerated not on home oxygen Continue IV Levaquin D3/7 , continue updraft treatment, as needed cough medication Encourage out of bed to chair and incentive spirometry. LYNN resolved Recurrent Leukocytosis likely reactive, no fevers, on IV antibiotic follow CBC Polysubstance abuse U tox positive for opiates, fentanyl, benzo and marijuana, Follow Addiction Medicine consult. Generalized pain, continue IV Dilaudid , oxycodone, hot pack, Aspercreme. Support provided GI prophylaxis with Prilosec Mild hypophosphatemia will replete and follow labs in 2 days Transaminitis LFTs trending down, no right upper quadrant pain follow LFTs Disposition obtain PT eval they recommend short-term rehab DVT prophylaxis with heparin Full code Patient need continued inpatient hospitalization for hypoxia, aspiration pneumonia requiring IV antibiotic and polysubstance abuse requiring expert consultation, telephonic nurse case manager arranging for safe disposition. Quality Stroke Does the patient have a stroke diagnosis?: No VTE Prior VTE?: No VTE Risk Level:: Medical - moderate - high VTE Device Contraindication: N/A - Device Ordered VTE Drug Contraindication: N/A - Med Ordered
[2024-02-07] MEDS: Albuterol/Iprat 2.5/0.5MG 3 ML AMPUL.NEB INHALE ×2 (15:33→20:15)
[2024-02-07] MEDS: Sodium,Potassium Phosphates POWD.PACK 1 PACKET PO ×2 (16:01→20:06)
[2024-02-08] VITALS (9 sets, daily range): BP systolic 126–172; BP diastolic 72–105; PULSE 84–118; RESP 16–18; TEMP 36.1–36.7; O2SAT 92–98
[2024-02-08] MEDS: Omeprazole 20 MG CAPSULE.DR PO (05:44)
[2024-02-08] MEDS: Albuterol/Iprat 2.5/0.5MG 3 ML AMPUL.NEB INHALE ×3 (07:29→20:18)
[2024-02-08] MEDS: Gabapentin 400 MG CAPSULE 800 MG PO ×3 (08:36→19:23)
[2024-02-08] MEDS: Heparin Sodium,Porcine 5,000 UNIT/ML VIAL 5000 UNIT SUBCUT ×3 (08:36→21:20)
[2024-02-08] MEDS: buPROPion HCL 100 MG TABLET PO (08:36)
[2024-02-08] MEDS: levoFLOXacin/D5W 750 MG/150 ML PIGGYBACK 100 MG IV (08:37)
[2024-02-08] MEDS: Sodium,Potassium Phosphates POWD.PACK 1 PACKET PO ×3 (08:37→19:23)
[2024-02-08] MEDS: oxyCODONE HCl Immed Release 5 MG TABLET PO ×3 (11:05→21:23)
[2024-02-08] MEDS: clonazePAM 1 MG TABLET PO ×2 (11:05→21:24)
--- NOTE | 2024-02-08 12:11 | HO.PM.IMPN ---
Subjective Subjective Date of Service: 02/08/24 Interval History: Patient more awake alert and interactive as opposed to last few days. Declining use off opiates, benzo or fentanyl only admits to using marijuana Denies shortness of breath, no fevers, no chills, tolerating diet with no nausea, no vomiting, no abdominal pain no acute issues, oxygenation improved currently 94% on room air Review of Systems All other system reviewed and negative Physical Exam Vital Signs: Vital Signs: Last Vital Signs Temp 97.4 F 02/08/24 11:41 Pulse 95 02/08/24 11:41 Resp 18 02/08/24 11:41 BP 139/96 H 02/08/24 11:41 Pulse Ox 94 02/08/24 11:41 O2 Del Method Room Air 02/08/24 11:41 O2 Flow Rate 3 02/06/24 04:52 FiO2 45 02/05/24 19:32 BMI result Body Mass Index 27.0 Objective Data Active Medications Acetaminophen (Acetaminophen 325 Mg Tablet) 650 mg PO Q6H PRN PRN Reason: Pain, Mild (Pain Scale 1-3) Last Admin: 02/04/24 13:42 Dose: 650 mg Documented By: DULCE Albuterol/Ipratropium (Albuterol/Iprat 2.5/0.5mg 3 Ml Ampul.Neb) 3 ml INHALE RQ4H WHILE AWAKE [facility] Last Admin: 02/08/24 11:17 Dose: Not Given Documented By: TERI Non-Admin Reason: Patient Asleep Bupropion HCl (Bupropion Hcl 100 Mg Tablet) 100 mg PO DAILY [facility] Last Admin: 02/08/24 08:36 Dose: 100 mg Documented By: YULIYA Clonazepam (Clonazepam 1 Mg Tablet) 1 mg PO BID PRN PRN Reason: anxiety Last Admin: 02/08/24 11:05 Dose: 1 mg Documented By: YULIYA Gabapentin (Gabapentin 400 Mg Capsule) 800 mg PO TID [facility] Last Admin: 02/08/24 08:36 Dose: 800 mg Documented By: YULIYA Glucose (Glucose Gel 15 Gm Gel..Gram.) 15 gm PO Q15M PRN; Protocol PRN Reason: per Hypoglycemia Standing Ord. Heparin Sodium (Porcine) (Heparin Sodium,Porcine 5,000 Unit/Ml Vial) 5,000 unit SUBCUT Q8H [facility] Last Admin: 02/08/24 08:36 Dose: 5,000 unit Documented By: YULIYA Hydromorphone HCl (Hydromorphone Hcl 0.5 Mg/0.5 Ml Syringe) 0.5 mg IVPUSH Q4H PRN; Protocol PRN Reason: Pain, Moderate(Pain Scale 4-6) Last Admin: 02/07/24 12:13 Dose: 0.5 mg Documented By: LEOBARDO Dextrose (D10) 250 mls @ 750 mls/hr IV Q15M PRN; Protocol PRN Reason: per Hypoglycemia Standing Ord. Levofloxacin (Levaquin) 750 mg in 150 mls @ 100 mls/hr IV Q24H [facility] Last Infusion: 02/08/24 10:12 Dose: Infused Documented By: YULIYA Omeprazole (Omeprazole 20 Mg Capsule.Dr) 20 mg PO DAILY@0630 [facility] Last Admin: 02/08/24 05:44 Dose: 20 mg Documented By: ABEL Ondansetron HCl (Ondansetron Hcl 4 Mg/2 Ml Vial) 4 mg IVPUSH Q4H PRN PRN Reason: Nausea and Vomiting Oxycodone HCl (Oxycodone Hcl Immed Release 5 Mg Tablet) 5 mg PO Q4H PRN PRN Reason: Pain, Moderate(Pain Scale 4-6) Last Admin: 02/08/24 11:05 Dose: 5 mg Documented By: YULIYA Potassium Phos/Sodium Phos (Sodium,Potassium Phosphates Powd.Pack) 1 packet PO TID [facility] Stop: 02/09/24 09:01 Last Admin: 02/08/24 08:37 Dose: 1 packet Documented By: YULIYA Trolamine Salicylate (Trolamine Salicylate 10 % Cream 85 Gm Tube) 1 appl TOPICAL BID PRN; Protocol PRN Reason: mid back Labs 02/07/24 06:41 02/06/24 09:35 Microbiology Microbiology Results: Microbiology 02/03/24 05:49 Blood Culture - Final Blood - Venous No growth after 5 days. 02/03/24 05:48 Blood Culture - Final Blood - Venous No growth after 5 days. Assessment and Plan (1) Pulmonary aspiration: Status: Acute (2) Acute hypoxic respiratory failure: Status: Acute (3) LYNN (acute kidney injury): Status: Acute Plan 43 Y M undomiciled, with polysubstance misuse and recent admission to [facility] on 01/30 for opioid overdose, aspiration pneumonia and acute hypoxic respiratory failure, ultimately discharged 02/01; patient reportedly found outside 02/01 PM unresponsive, hypoxic, given naloxone w/o improvement; in the emergency department, patient intubated, found to have multi-focal pneumonia, CT head and C-spine CT were unremarkable. Acute distributive shock secondary to pulmonary aspiration: now resolved Acute toxic metabolic encephalopathy likely multifactorial due to opiate overdose/hypoxia/pneumonia; resolved Acute hypoxic respiratory failure due to aspiration pneumonia with a background of polysubstance abuse, admitted to ICU , extubated on 02/03 High-flow weaned off currently on room air with stable oxygenation on IV Levaquin D4/7 , will transition to by mouth Levaquin, continue updraft treatment and as needed cough medication Encourage out of bed to chair and incentive spirometry. LYNN resolved Recurrent Leukocytosis likely reactive, no fevers, on IV antibiotic , WBC trending down Polysubstance abuse U tox positive for opiates, fentanyl, benzo and marijuana, Seen by Addiction Medicine patient declined referrals for further substance use disorder treatment History of PTSD/depression/anxiety and multiple hospitalization with drug overdose therefore consulted Psychiatry for medication management. Generalized pain, improved will DC IV Dilaudid on oxycodone, hot pack, Aspercreme. Support provided GI prophylaxis with Prilosec Mild hypophosphatemia will replete and follow labs at am Transaminitis LFTs trending down, no right upper quadrant pain, follow LFTs. Disposition PT initially recommended short-term rehab however today patient ambulated 200 ft and at his functional baseline therefore no skilled therapy indicated at this time. DVT prophylaxis with heparin Full code Patient need continued inpatient hospitalization for polysubstance abuse requiring expert consultation, field nurse case manager arranging for safe disposition. Quality Stroke Does the patient have a stroke diagnosis?: No VTE Prior VTE?: No VTE Risk Level:: Medical - moderate - high VTE Device Contraindication: N/A - Device Ordered VTE Drug Contraindication: N/A - Med Ordered
[2024-02-08] MEDS: levoFLOXacin 500 MG TABLET PO (12:37)
--- NOTE | 2024-02-08 14:12 | MHC.CM.PN ---
PT no longer recommending skilled services. CM met with patient to review potential dc plan. Patient homeless at this time, but declines fci placement. States he met with manager facility and declined services, but is now open to potential placement. manager facility and will meet with patient after psych eval. CM will continue to follow.
[2024-02-09] VITALS (7 sets, daily range): BP systolic 133–147; BP diastolic 70–90; PULSE 80–110; RESP 14–18; TEMP 36.1–36.7; O2SAT 94–97
[2024-02-09] MEDS: Omeprazole 20 MG CAPSULE.DR PO (05:46)
[2024-02-09] MEDS: oxyCODONE HCl Immed Release 5 MG TABLET PO ×2 (05:47→10:21)
[2024-02-09 07:20] LABS: Alanine Aminotransferase 50 U/L (0-40); Albumin Level 3.8 g/dL (3.5-5.0); Alkaline Phosphatase 50 U/L (39-117); Aspartate Amino Transferase 30 U/L (5-37); Bilirubin Direct 0.1 mg/dL (0.0-0.5); Bilirubin Total 0.3 mg/dL (0.0-1.0)
[2024-02-09 07:31] LABS: Hematocrit 37.9 % (42.0-52.0); Hemoglobin 12.5 g/dl (14.0-18.0); Mean Corpuscular Volume 91.1 fL (80.0-98.0); Mean Platelet Volume 11.5 fL (9.4-12.4); Platelet Count 344 X10*3/uL (160-400); Red Blood Count 4.16 X10*6/uL (4.60-5.80); Red Cell Distribution Width 14.7 % (11.0-16.0); White Blood Count 10.5 X10*3/uL (4.8-10.8)
[2024-02-09] MEDS: Albuterol/Iprat 2.5/0.5MG 3 ML AMPUL.NEB INHALE ×2 (07:41→11:45)
[2024-02-09] MEDS: Heparin Sodium,Porcine 5,000 UNIT/ML VIAL 5000 UNIT SUBCUT ×2 (08:16→15:08)
[2024-02-09] MEDS: Gabapentin 400 MG CAPSULE 800 MG PO ×2 (08:17→15:08)
[2024-02-09] MEDS: buPROPion HCL 100 MG TABLET PO (08:17)
[2024-02-09] MEDS: Sodium,Potassium Phosphates POWD.PACK 1 PACKET PO (08:18)
[2024-02-09] MEDS: clonazePAM 1 MG TABLET PO (10:22)
--- NOTE | 2024-02-09 13:12 | MHC.CM.PN ---
EMR reviewed. Patient not cleared for dc at this time, awaiting psych consult. Discussed potential dc plan to respite/crisis stabilization center. Patient does not feel this is necessary. Will meet with sample shoe inspector and reworker to discuss options. CM will continue to follow.
[2024-02-09] MEDS: hydrOXYzine HCL 25 MG TABLET PO (13:17)
[2024-02-09] MEDS: levoFLOXacin 500 MG TABLET PO (13:17)
[2024-02-09] MEDS: Naloxone HCl Nasal TAKE HOME 4 MG SPRAY 8 MG NOSTRILALT (15:09)
--- NOTE | 2024-02-09 15:16 | P.CNPS_ITS ---
History of Present Illness Date of Service: 02/09/2024 Chief Complaint: Hypoxic respiratory failure Requesting physician: Usha Cazares Discussed with referring provider: Yes Sources of Information: patient interviewed, chart reviewed and crisis/core team assessment reviewed HPI Narrative: Mr. Samayoa is a 43 year-old male with hx of opioid use disorder who was admitted due to aspiration pneumonia after being found unresponsive a day after he was discharged for treatment of aspiration pneumonia s/s to overdose on opiods. psychiatry consult due to safety concerns of recent overdoses. Pt presents as calm and cooperative. He reports he has been using heroin/fentanyl intermittently for years. He reports he uses to treat his pain. He reports he has been on methadone and suboxone in the past and does not want to be on any MAT. He reports he was dependent on going to the clinic daily for methadone otherwise risking opioid withdrawal. He adamantly denies suicidal ideation. He identifies his 6 children as protective factors. He has limited insight into his extend of substance use and states that unless he is prescribed opioid medications for pain he will not stop using heroin/fentanyl. We had lengthy conversation about harm reduction- pt was given narcan prior to discharge. He was also given information about [facility] addition team and CCC, should he changes his mind or wants to connect with assistant tennis coach, even if not interested in MAT. [facility] Medical History Pneumonitis Multifocal pneumonia Polysubstance abuse Surgical History H/O tooth extraction Diagnostics Vital Signs (24Hr): Vital Signs - 24 hr 02/08/24 20:00 02/08/24 20:18 02/09/24 00:00 Temperature 97.7 F 97.8 F Pulse Rate 84 100 80 Respiratory Rate 18 18 18 Blood Pressure 172/105 H 140/70 H Pulse Oximetry 97 97 Oxygen Delivery Method Room Air Room Air 02/09/24 02:53 02/09/24 07:37 02/09/24 07:42 Temperature 97.0 F 98.0 F Pulse Rate 80 100 95 Respiratory Rate 18 14 14 Blood Pressure 133/76 147/85 H Pulse Oximetry 97 97 Oxygen Delivery Method Room Air Room Air 02/09/24 11:46 02/09/24 12:00 Temperature 97.4 F Pulse Rate 90 110 H Respiratory Rate 17 16 Blood Pressure 134/90 H Pulse Oximetry 96 Oxygen Delivery Method Room Air BMI result Body Mass Index 27.0 Labs 02/09/24 05:40 02/06/24 09:35 Labs: Laboratory Results - last 48 hr 02/09/24 05:40 WBC 10.5 RBC 4.16 L Hgb 12.5 L Hct 37.9 L MCV 91.1 MCH 30.0 MCHC 33.0 RDW 14.7 Plt Count 344 MPV 11.5 Absolute Nucleated RBC 0.000 Nucleated RBC % (auto) 0.0 Phosphorus 4.0 Total Bilirubin 0.3 Direct Bilirubin 0.1 AST 30 ALT 50 H Alkaline Phosphatase 50 Total Protein 7.0 Albumin 3.8 Imaging Radiology Impressions: ITS Impressions Chest X-Ray 02/03/24 05:58 IMPRESSION: 1. Endotracheal tube and gastric tube in adequate position. 2. Diffuse right-sided infiltrative change is again seen. Cervical Spine CT 02/03/24 06:36 IMPRESSION: 1. There is no acute intracranial pathology. 2. There is no acute fracture or dislocation of the cervical spine. 3. There is mild C5-C6 and C6-C7 disc degenerative change. There is mild C6-C7 spinal canal and neuroforaminal narrowing. 4. Right upper lobe opacity/infiltrate. Head CT 02/03/24 06:36 IMPRESSION: 1. There is no acute intracranial pathology. 2. There is no acute fracture or dislocation of the cervical spine. 3. There is mild C5-C6 and C6-C7 disc degenerative change. There is mild C6-C7 spinal canal and neuroforaminal narrowing. 4. Right upper lobe opacity/infiltrate. Chest CT 02/03/24 06:38 IMPRESSION: Bilateral multi lobar pneumonia, right greater than left, not appreciably changed from previous exam. Endotracheal tip 1 cm above the maryam and should be pulled back several centimeters Findings communicated by the [facility] work Fleischner guidelines were followed. Chest X-Ray 02/03/24 07:28 IMPRESSION: Right jugular line projects over SVC. No pneumothorax. Endotracheal tube tip 3 cm above maryam. Mental Status Exam Mental Status Exam Narrative: Appearance: wearing hospital gown, edentulous, in NAD Behavior: cooperative Psychomotor: no agitation or retardation noted Speech: clear, normal rate/rhythm/volume, spontaneous TP:linear TC: wanting to leave. Mood: okay Affect: congruent, brightens at times SI: adamantly denies HI: denies VH/AH: none Delusions: none Insight/judgment: poor x 2. memory/cog: alert, oriented x 3. grossly intact to conversational testing. Medications Medications Current Medications Acetaminophen (Acetaminophen 325 Mg Tablet) 650 mg PO Q6H PRN PRN Reason: Pain, Mild (Pain Scale 1-3) Last Admin: 02/04/24 13:42 Dose: 650 mg Albuterol/Ipratropium (Albuterol/Iprat 2.5/0.5mg 3 Ml Ampul.Neb) 3 ml INHALE RQ4H WHILE AWAKE [facility] Last Admin: 02/09/24 11:45 Dose: 3 ml Bupropion HCl (Bupropion Hcl 100 Mg Tablet) 100 mg PO DAILY [facility] Last Admin: 02/09/24 08:17 Dose: 100 mg Clonazepam (Clonazepam 1 Mg Tablet) 1 mg PO BID PRN PRN Reason: anxiety Last Admin: 02/09/24 10:22 Dose: 1 mg Gabapentin (Gabapentin 400 Mg Capsule) 800 mg PO TID [facility] Last Admin: 02/09/24 15:08 Dose: 800 mg Glucose (Glucose Gel 15 Gm Gel..Gram.) 15 gm PO Q15M PRN; Protocol PRN Reason: per Hypoglycemia Standing Ord. Heparin Sodium (Porcine) (Heparin Sodium,Porcine 5,000 Unit/Ml Vial) 5,000 unit SUBCUT Q8H [facility] Last Admin: 02/09/24 15:08 Dose: 5,000 unit Dextrose (D10) 250 mls @ 750 mls/hr IV Q15M PRN; Protocol PRN Reason: per Hypoglycemia Standing Ord. Levofloxacin (Levofloxacin 500 Mg Tablet) 500 mg PO Q24H [facility] Stop: 02/10/24 12:31 Last Admin: 02/09/24 13:17 Dose: 500 mg Omeprazole (Omeprazole 20 Mg Capsule.) 20 mg PO DAILY@0630 [facility] Last Admin: 02/09/24 05:46 Dose: 20 mg Ondansetron HCl (Ondansetron Hcl 4 Mg/2 Ml Vial) 4 mg IVPUSH Q4H PRN PRN Reason: Nausea and Vomiting Oxycodone HCl (Oxycodone Hcl Immed Release 5 Mg Tablet) 5 mg PO Q4H PRN PRN Reason: Pain, Moderate(Pain Scale 4-6) Last Admin: 02/09/24 10:21 Dose: 5 mg Trolamine Salicylate (Trolamine Salicylate 10 % Cream 85 Gm Tube) 1 appl TOPICAL BID PRN; Protocol PRN Reason: mid back Allergies Allergies Allergy/AdvReac Type Severity Reaction Status Date / Time ibuprofen [From MOTRIN] Allergy Severe BLEEDING Verified 02/03/24 05:26 [facility] Assessment & Plan Assessment & Plan (1) Opioid use disorder, moderate, dependence: Status: Acute Code(s): F11.20 - Opioid dependence, uncomplicated Plan Mr. Samayoa is a 43 year-old male with hx of opioid use disorder who has been brought 3 times in past month unresponsive after opioid OD. Nicholas also developed aspiration pneumonia. His insight into extend of substance use and risk of accidental OD is limited at this time. He declines referrals fo substance use treament, or MAT. He does not appear suicidal and adamantly denies any plan or intent to end his life. We had lenghthy discussion about harm reduction and carrying narcan with him in event of accidental overdose. He was given information about our addiction medicine team and CCC should he changes his mind. PLAN 1. No imminent safety concern in terms of suicidal or homicidal ideation.No need for inpt psych admission. He does have chronic risk of self harm due to ongoing substance use, limited insight and limited supports in the community. He was given narcan to go and information on substance use tx resorces should he changes his mind. Total time managing care of this patient today ____ minutes.
--- NOTE | 2024-02-09 15:28 | P.DS_ITS ---
DS: Providers Provider Date of Service: 02/09/24 Date of admission: 02/03/24 07:34 Date of discharge: 02/09/24 Primary care physician: Unknown Physician Consults: 02/05/24 13:51 Addiction Medicine Routine Consulting Provider: Jaye Johnson Reason for consultation: polysubstance use Has provider been notified: No 02/08/24 08:15 Consult to Psychiatry Routine Consulting Provider: Abbi Marin Reason for consultation: polysubstance use /? depression; 3 OD in one week requiring intubation Attending physician on discharge: Carlos Ritter Discharging clinician: Usha Cazares DS: Diagnosis Discharge Diagnosis (1) Pulmonary aspiration: Status: Acute (2) Acute hypoxic respiratory failure: Status: Acute (3) LYNN (acute kidney injury): Status: Acute DS: Summary Hospital Course Hospital Course: From H&P on the day of admission Patient is a 43 Y M with polysubstance misuse and recent admission to [facility] on 01/30 for opioid overdose, c/b aspiration pneumonia and acute hypoxic respiratory failure, ultimately di scharged 02/01; patient reportedly found outside 02/01 PM unresponsive, hypoxic, given naloxone w/o improvement; in the emergency department, patient intubated, found to have CT chest c/f multi-focal pneumonia was discharged 02/01, returned the ED the same night after another overdose and received narcan by PD and was brought to the ED where he left AMA. He was then brought back to the ED the following day after being found unresponsive. He received multiple doses of Narcan remained incoherent and was brought to the ED where he required intubation for airway protection. He remained hypotensive and was started on Levophed and admitted to the ICU for management of respiratory failure, LYNN, anion gap metaboic acidosis joe to lactic acidosis and distributive shock. Acute hypoxic respiratory failure due to aspiration pneumonia with a background of polysubstance abuse, admitted to ICU , extubated on 02/03 but remained on On high-flow oxygen. He was downgraded to the medical floor on February 04. He was continued on levofloxacin. LYNN resolved. He was gradually able to be weaned off of oxygen is currently saturating in the high 90s on room air. He is able to ambulate without shortness of breath. He was seen by the addiction Medicine team and he declines any further treatment or referrals. He does not want methadone or Suboxone, he does not want to follow- up in the [facility]. Due to multiple drug overdoses in short period of time patient was evaluated by Psychiatry. He denies suicidal ideation and does not meet inpatient level of care. He again reiterated that he does not want treatment for opiate use disorder. Harm reduction and education has been provided by multiple sources, he was given Narcan. At this point he is remained afebrile, leukocytosis has resolved, he has been weaned off of oxygen and is stable for discharge home. He will be discharged to complete a course of antibiotics. Time Attestation Discharge Coordination Time (in mins): 36 Quality: Safe Use of Opioids Does Pt have an Active Cancer Diagnosis on the Problem List?: No Quality: Stroke Does the patient have a stroke diagnosis?: No Physical Exam Vital Signs: Vital Signs: Last Vital Signs Temp 97.6 F 02/09/24 15:18 Pulse 92 02/09/24 15:18 Resp 18 02/09/24 15:18 BP 138/87 02/09/24 15:18 Pulse Ox 97 02/09/24 15:18 O2 Del Method Room Air 02/09/24 15:18 O2 Flow Rate 3 02/06/24 04:52 FiO2 45 02/05/24 19:32 BMI result Body Mass Index 27.0 Const: General: comfortable, no acute distress, alert and awake Nutritional Appearance: average body habitus Orientation/consciousness: patient oriented x3 Resp: Effort & Inspection: normal respiratory effort, able to speak in complete sentences, no respiratory distress and no use of accessory muscles Cardio: Rate: regular rate GI: Inspection: No distended Palpation (GI): Soft to palpation and nontender Neuro: General: patient oriented x3, moves all extremities and CN's II-XI intact bilaterally Extrem: General: Yes no pedal edema DS: Data Data Completed and Pending Labs on day of discharge: Laboratory Results - last 24 hr 02/09/24 05:40 WBC 10.5 RBC 4.16 L Hgb 12.5 L Hct 37.9 L MCV 91.1 MCH 30.0 MCHC 33.0 RDW 14.7 Plt Count 344 MPV 11.5 Absolute Nucleated RBC 0.000 Nucleated RBC % (auto) 0.0 Phosphorus 4.0 Total Bilirubin 0.3 Direct Bilirubin 0.1 AST 30 ALT 50 H Alkaline Phosphatase 50 Total Protein 7.0 Albumin 3.8 Discharge Plan Discharge Anticipated Discharge Date/Time: 02/09/24 15:39 Patient Disposition: Home, Self-Care Discharge Diagnosis: acute respiratory failure due to pulmonary aspiration and multifocal pneumonia in the setting of drug overdose Referrals: Physician,Unknown J [Primary Care Provider] - 1 Week Discharge Medications: New levofloxacin 750 mg tablet 750 mg PO Q24H Qty: 2 0RF Continued acetaminophen 325 mg tablet 650 mg PO Q6H PRN (Reason: pain) clonazepam 1 mg tablet 1 mg PO BID PRN (Reason: anxiety) bupropion HCl 100 mg tablet 100 mg PO DAILY gabapentin 800 mg tablet 800 mg PO TID hydroxyzine HCl 25 mg tablet 25 mg PO TID PRN (Reason: Anxiety) ibuprofen 600 mg tablet 600 mg PO Q6H PRN (Reason: pain) Discontinued doxycycline monohydrate 100 mg tablet 100 mg PO BID 7 Days Qty: 14 0RF amoxicillin-pot clavulanate 875-125 mg tablet 1 tab PO Q12H 7 Days Qty: 14 0RF Discharge Orders: Discharge Order (Routine); Ordered 02/09/24 Ordered By: Usha Cazares Activity on Discharge: As tolerated Stand Alone Forms: Patient Portal Discharge page Print Language: Bahraini Care Plan Goals: Resolution of infection avoid recurrent opiate overdose Health Concerns: Acute respiratory failure secondary to pulmonary aspiration and multifocal pneumonia in the setting of polysubstance drug overdose LYNN resolved mild hyponatremia resolved transaminitis improving Plan of Treatment: Complete course of antibiotics as prescribed Narcan for opiate overdose. recommend harm reduction strategies as discussed by addiction medicine team outpatient follow up with PCP Assessment: See discharge summary
--- NOTE | 2024-02-09 16:16 | MHC.CM.PN ---
DP: PT HAS BEEN MEDICALLY CLEARED FOR DC HOME, NO SERVICES,. PT HAS A DESTINATION TO GO TO. PT SET UP WITH CHUCK DU.
== END 2024-02-09 16:00 | disposition home or self-care (01) | DRG 812 ==
LOC: HO.ED 06:28 → HO.EDOVER 07:40 → HO.ICU 07:57 → HO.IMC 02-06 01:18 → HO.S3 02-07 16:37
PROVIDERS: Hospitalist; Internal Medicine Pulmonary Disease; Registered Nurse Community Health; Admitting Provider Internal Medicine Critical Care Medicine; Emergency Provider Emergency Medicine; Visit Provider Physician Assistant Medical
DX: T40.2X1A Poisoning by other opioids, accidental (unintentional), initial encounter (principal); J96.01 Acute respiratory failure with hypoxia; J69.0 Pneumonitis due to inhalation of food and vomit; R57.8 Other shock; T68.XXXA Hypothermia, initial encounter; G92.8 Other toxic encephalopathy; N17.9 Acute kidney failure, unspecified; E83.39 Other disorders of phosphorus metabolism; F19.10 Other psychoactive substance abuse, uncomplicated; X31.XXXA Exposure to excessive natural cold, initial encounter; Z59.02 Unsheltered homelessness; Z20.822 Contact with and (suspected) exposure to COVID-19; Z79.899 Other long term (current) drug therapy
CPT/HCPCS: 0241U; 36415; 70450; 71045; 71250; 72125; 80048; 80053; 80076; 80202; 80307; 81001; 82040; 82140; 82550; 82803; 82947; 83605; 83690; 83735; 83880; 84100; 84145; 84484; 85025; 85027; 86850; 86900; 86901; 87040; 87070; 87086; 87205; 87389; 93005; 94002; 94003; 94640; 97116; 97162; 99285; C1758; C9113; J0692; J1170; J1644; J1956; J2250; J2405; J2704; J3010; J3370; J3371; P9047

== ENCOUNTER → 2024-02-03 05:20 | Outpatient (BNV) | payer OTHER, SELFPAY | PROVIDERS: Admitting Provider Internal Medicine Critical Care Medicine; Emergency Provider Emergency Medicine; Visit Provider Internal Medicine Cardiovascular Disease | DX: I45.81 Long QT syndrome (principal) | CPT/HCPCS: 93010 ==

== ENCOUNTER → 2024-02-03 07:34 | Outpatient (BNV) | payer OTHER, SELFPAY | PROVIDERS: Admitting Provider Internal Medicine Critical Care Medicine; Emergency Provider Emergency Medicine; Visit Provider Internal Medicine Critical Care Medicine | DX: J96.01 Acute respiratory failure with hypoxia (principal); T40.601A Poisoning by unspecified narcotics, accidental (unintentional), initial encounter; J18.9 Pneumonia, unspecified organism; T68.XXXA Hypothermia, initial encounter; N17.9 Acute kidney failure, unspecified; G93.40 Encephalopathy, unspecified; F19.10 Other psychoactive substance abuse, uncomplicated | CPT/HCPCS: 99291; 99292 ==

== ENCOUNTER → 2024-02-03 07:34 | Outpatient (BNV) | payer OTHER, SELFPAY | PROVIDERS: Admitting Provider Internal Medicine Critical Care Medicine; Emergency Provider Emergency Medicine; Visit Provider Social Worker | DX: F11.20 Opioid dependence, uncomplicated (principal) | CPT/HCPCS: 99232 ==

== ENCOUNTER → 2024-02-03 07:34 | Outpatient (BNV) | payer OTHER, SELFPAY | PROVIDERS: Admitting Provider Internal Medicine Critical Care Medicine; Emergency Provider Emergency Medicine; Visit Provider Hospitalist | DX: T17.900A Unspecified foreign body in respiratory tract, part unspecified causing asphyxiation, initial encounter (principal); J96.01 Acute respiratory failure with hypoxia; N17.9 Acute kidney failure, unspecified | CPT/HCPCS: 99233; 99239; 99499 ==

== ENCOUNTER → 2024-02-03 07:34 | Outpatient (BNV) | payer OTHER, SELFPAY | PROVIDERS: Admitting Provider Internal Medicine Critical Care Medicine; Emergency Provider Emergency Medicine; Visit Provider Internal Medicine Pulmonary Disease | DX: J96.01 Acute respiratory failure with hypoxia (principal); T17.900A Unspecified foreign body in respiratory tract, part unspecified causing asphyxiation, initial encounter; J18.9 Pneumonia, unspecified organism; F19.10 Other psychoactive substance abuse, uncomplicated | CPT/HCPCS: 99233 ==

== ENCOUNTER 2024-02-11 07:24 | Emergency (ER) | payer OTHER, SELFPAY ==
--- NOTE | 2024-02-11 07:49 | PC.NURSE ---
Arrived via ems after being found unresponsive in a basement. Per ems patient given 4mg via IM narcan and 8mg nasal. Patient covered in dirt and vomit, with congested cough. Initially refusing to allow security to change patient over, however did remove pants after speaking with MD. Belongings locked in decon by security. Patient agitated stating he needs his backpack, hat, and leather jacket. Per ems jacket and belongings left in basement because they were covered in vomit
[2024-02-11 07:51] VITALS: BP 144/92; PULSE 112; O2SAT 95
[2024-02-11 07:53] VITALS: BP 118/68; PULSE 99; RESP 18; O2SAT 86; BMI 24.4
--- NOTE | 2024-02-11 07:59 | PC.NURSE ---
Patient 85% on RA, declines 02, declines chest x ray. Provider at bedside and is aware. Patient alert and oriented x 4, states he is refusing all treatment and needs to leave
[2024-02-11 08:02] VITALS: O2SAT 90
--- NOTE | 2024-02-11 08:02 | ED_ITS ---
HPI - Overdose General Chief Complaint: Overdose Stated Complaint: HEROIN OD,NARCAN GIVEN W/+RESULT,VOMITING PER EMS Time Seen by Provider: 02/11/24 07:36 Source: patient and EMS Mode of arrival: EMS Limitations: no limitations History of Present Illness HPI Narrative: 43-year-old male with known history of polysubstance use disorder came in after was found unresponsive after using 2 bags of heroin patient was given total of 12 mg Narcan at the scene patient emergency department is AAOx 3, patient is refusing stay, patient not willing to stay for addictive medicine and possible rehab. Patient also found to be hypoxic 85% on room air and coughing refusing adamantly any further workup I had a lengthy conversation with the patient explaining risk of being hypoxic or having untreated pneumonia patient is accepting the risk and will sign against medical advice after 60 minutes of observation in the ED. Related Data Home Medications ?Medication ?Instructions ?Recorded ?Confirmed acetaminophen 325 mg tablet 650 mg PO Q6H PRN pain 01/31/24 02/03/24 bupropion HCl 100 mg tablet 100 mg PO DAILY 01/31/24 02/03/24 clonazepam 1 mg tablet 1 mg PO BID PRN anxiety 01/31/24 02/03/24 gabapentin 800 mg tablet 800 mg PO TID 01/31/24 02/03/24 hydroxyzine HCl 25 mg tablet 25 mg PO TID PRN Anxiety 01/31/24 02/03/24 ibuprofen 600 mg tablet 600 mg PO Q6H PRN pain 01/31/24 02/03/24 Previous Rx's ?Medication ?Instructions ?Recorded levofloxacin 750 mg tablet 750 mg PO Q24H #2 tabs 02/09/24 azithromycin 500 mg tablet 500 mg PO DAILY 7 days #7 tabs 02/11/24 (Zithromax) Allergies Allergy/AdvReac Type Severity Reaction Status Date / Time ibuprofen [From MOTRIN] Allergy Severe BLEEDING Verified 02/11/24 07:54 ULCER Review of Systems Review of Systems: All other systems are reviewed and are negative Constitutional: Reports as per HPI and Reports no additional constitutional complaints Eyes: Reports as per HPI and Reports no additional eye complaints Reports system reviewed and no additional complaints, except as documented Cardiovascular: Reports as per HPI and Reports no additional cardiovascular complaints Respiratory: Reports as per HPI and Reports no additional respiratory complaints Gastrointestinal: Reports as per HPI and Reports no additional gastrointestinal complaints Genitourinary: Reports no additional female genitourinary complaints Musculoskeletal: Reports no additional musculoskeletal complaints Skin/Breast: Reports system reviewed and no additional complaints, except as docu Psychiatric: Reports no additional psychiatric complaints Endocrine: Reports no additional endocrine complaints Hematologic/Lymphatic: Reports no additional hematologic/lymphatic complaints Allergic/Immunologic: Reports no additional allergic/immunologic complaints Reports system reviewed and no additional complaints, except as documented and Reports Abnormal speech present [facility] Past Medical History Medical History Pneumonitis Multifocal pneumonia Polysubstance abuse Surgical History H/O tooth extraction Family History Family History Paternal Grandfather Prostate cancer Social History Social History Household Members: Unknown / Unable to assess Housing: Homeless Housing Other:: was in place for treatment unable to recall Unable to assess alcohol history related to: Refusing to respond Patient Tobacco Use Status: Current everyday Tobacco user Tobacco use type: Cigarette and Smokeless Tobacco Cigarette Packs Per Day: 2 Cigarettes Per Day: 40.0 Years Smoked: 30 Smoked in Last 30 Days: Yes e-Cigarette/Vaping Use: Currently Using Second Hand Smoke Exposure: Yes Use of substances other than those prescribed or required for medical reasons: Yes Substance Use Type: Heroin Substance Use Frequency: Daily Advance Directives: No Advance Directives Information Provided: No service: No Physical Exam Vital Signs: Vital Signs: Last Vital Signs Pulse 99 02/11/24 07:53 Resp 18 02/11/24 07:53 BP 118/68 02/11/24 07:53 Pulse Ox 90 L 02/11/24 08:02 O2 Del Method Nasal Cannula 02/11/24 08:02 O2 Flow Rate 3 02/11/24 08:02 BMI result Body Mass Index 24.4 Vital signs have been reviewed and appear to be correct. Blood pressure elevated. Heart rate normal. Respiratory rate normal. Temperature normal. Oxygen saturation normal. Appearance: Alert. Oriented X3. No acute distress. Head: Normal external exam. Normocephalic. Atraumatic. No Calles signs noted. No raccoon eyes noted Eyes: PERRLA. EOMI. Conjunctiva and sclera normal. Eyelids normal. ENT: TM's Normal. Pharynx normal. Uvula midline. Moist mucous membranes. No trismus noted. No drooling noted. No muffled voice noted. Neck: Normal inspection. Neck supple. FROM. No adenopathy. Thyroid Normal. No meningeal signs. No neck mass noted. CVS: Normal heart rate and rhythm. Heart sound normal. No murmurs noted. Pulses normal throughout. Respiratory: hypoxic, no respiratory distress. Painless inspiration. Breath sounds normal. No wheezes/rales/rhonchi noted. Chest nontender. No accessory muscle usage noted or decreased air movement noted. Abdomen: Soft and nontender. Bowel sounds normal in all 4 quadrants. No distention noted. No organomegaly noted. No visible injury noted. Back: No CVA tenderness. Full range of motion noted. Skin: Skin warm and dry. Normal skin color. Normal skin turgor. No rashes/lesions/lacerations noted. Extremities: No lower extremity edema. Extremities exhibit normal range of motion. Extremities nontender. Neuro: Oriented X 3. Cranial nerve exam: II-XII are grossly intact No motor deficit. No sensory deficit. Reflexes normal. Course Reevaluation(s) Reevaluation #1: polysubstance abuse with multiple ED visits for accidental overdose after using heroin usually require Narcan administration, patient remained awake in the emergency department for 60 minutes, no SI, no HI, patient is refusing adamantly x-ray to rule out aspiration pneumonia which the patient likely to have given the hypoxia and coughing in the emergency department will presume that the patient have aspiration pneumonia and will discharge on Zithromax 500 mg daily for 7 days patient is willing to merchandise pickup/receiving associate the prescription, otherwise patient is AAO x3 competent to make his decision benefit and risks of not doing the workup to for hypoxia could be a life-threatening and may lead to among other complications that were discussed with the patient patient is signing against medical advice understanding that he can return to the hospital if he needed. Time: 08:35 Medical Decision Making Differential Diagnosis Differential Diagnoses: The differential diagnosis associated with the presentation includes ( overdose, vital sign monitoring, respiratory suppression, aspiration pneumonia.) Admission/Observation Consideration of admission/observation: Escalation of care including admission/observation considered Discharge Plan Discharge Clinical Impression: Accidental overdose, Polysubstance abuse, Aspiration pneumonia Patient Disposition: Left Against Medical Advice Instructions: Aspiration Pneumonia (DC) Prescriptions: New azithromycin [Zithromax] 500 mg tablet 500 mg PO DAILY 7 Days Qty: 7 0RF No Action acetaminophen 325 mg tablet 650 mg PO Q6H PRN (Reason: pain) clonazepam 1 mg tablet 1 mg PO BID PRN (Reason: anxiety) bupropion HCl 100 mg tablet 100 mg PO DAILY gabapentin 800 mg tablet 800 mg PO TID hydroxyzine HCl 25 mg tablet 25 mg PO TID PRN (Reason: Anxiety) ibuprofen 600 mg tablet 600 mg PO Q6H PRN (Reason: pain) levofloxacin 750 mg tablet 750 mg PO Q24H Qty: 2 0RF Stand Alone Forms: Against Medical Advice Print Language: Arabic
--- NOTE | 2024-02-11 08:03 | PC.NURSE ---
Allow for 02 to be placed, sating 90% on 3 liters
--- NOTE | 2024-02-11 08:27 | PC.NURSE ---
Continues to decline chest x ray , states he needs to leave to go retrieve belongings. Continues to cough about large amount of mucus
[2024-02-11 08:44] VITALS: BP 118/68; PULSE 104; RESP 24; TEMP 37.2; O2SAT 82
--- NOTE | 2024-02-11 08:46 | PC.NURSE ---
Patient continues to decline medical treatment, aware that his o2 saturation is low but states he is fine. Provider aware, patient signed out ama
--- NOTE | 2024-02-11 08:51 | PC.NURSE ---
Patient brought to [facility] to get personal belongings, reminded to lemon picker antibiotics at [facility]
== END 2024-02-11 08:51 | disposition left against medical advice (07) ==
PROVIDERS: Emergency Provider Emergency Medicine
DX: J69.0 Pneumonitis due to inhalation of food and vomit (principal); T40.1X1A Poisoning by heroin, accidental (unintentional), initial encounter; Y92.9 Unspecified place or not applicable; R09.02 Hypoxemia; F11.10 Opioid abuse, uncomplicated; F17.210 Nicotine dependence, cigarettes, uncomplicated; Z79.899 Other long term (current) drug therapy
CPT/HCPCS: 99284

== ENCOUNTER 2024-02-13 02:14 | Inpatient (IN) | payer OTHER, SELFPAY ==
[2024-02-13] VITALS (11 sets, daily range): BP systolic 115–153; BP diastolic 63–97; PULSE 79–107; RESP 16–20; TEMP 36.4–37.1; O2SAT 86–98; BMI 23.7
--- NOTE | ~2024-02-13 | CT_ITS ---
EXAMINATION: CT ANGIOGRAM OF THE CHEST WITH AND WITHOUT CONTRAST (CT PULMONARY ANGIOGRAM FOR PE) CLINICAL INFORMATION: Reason for Exam chest pain, dyspnea COMPARISON: CT chest 02/03/2024 CTA chest 01/31/2024 TECHNIQUE: Prior to contrast administration, noncontrast localization images were obtained. Subsequently, multidetector volumetric imaging was performed from the thoracic inlet to below the diaphragms following the administration of 85 mL Omnipaque 350 intravenous contrast. No contrast reaction reported Sagittal, coronal, and MIP oblique sagittal reformatted images were obtained on the CT workstation, uploaded to PACS, and reviewed. This CT examination was performed using dose optimization techniques as appropriate, variously including the following: *Automated exposure control *Adjustment of mA and/or kV according to patient size (this includes techniques or standardized protocols for targeted exams where dose is matched to indication/reason for exam; i.e. extremities or head) *Use of iterative reconstruction technique Total exam dose-length product 262 mGy-cm FINDINGS: Motion artifact technically degrades image quality. QUALITY OF STUDY/CONTRAST BOLUS: Suboptimal. PULMONARY ARTERIES: No central filling defect seen. THORACIC AORTA: No aneurysm. LUNG: There has been interval improvement in right upper lobe and right lower lobe consolidative change compared to the prior study of 02/03/2024. There has been development of innumerable irregular pulmonary nodules involving all 5 lobes with the largest measuring approximately 1.5 cm. PLEURA: Small left pleural effusion. Trace right pleural effusion. MEDIASTINUM: Nodule posterior to the right thyroid lobe measures 1.6 x 1.2 cm. Increasing mediastinal and bilateral hilar lymphadenopathy. Heart size is stable. No pericardial effusion. No evidence of septal bowing or right heart strain. CORONARY ARTERY CALCIFICATION: None visualized on this study. CHEST WALL/AXILLA: No axillary or internal mammary lymphadenopathy. OSSEOUS STRUCTURES: No destructive bone lesions. UPPER ABDOMEN: Few hepatic hypodensities too small to characterize. 1.5 cm splenic cyst. No adrenal mass. No reflux of contrast into the hepatic veins to suggest elevated right heart pressures. CT/CT angio chest PE protocol IMPRESSION: Technically limited study due to suboptimal contrast bolus timing and motion artifact. No central pulmonary arterial filling defect. While there has been interval improvement in previously demonstrated right upper lobe and right lower lobe consolidation, there are new innumerable irregular pulmonary nodules involving all 5 lobes measuring up to 1.5 cm. Interval increase in mediastinal bilateral hilar lymphadenopathy. Small right pleural effusion. Trace left pleural effusion. VTE: indeterminate
--- NOTE | ~2024-02-13 | XR_ITS ---
EXAMINATION: XR CHEST CLINICAL INFORMATION: Shortness of breath. COMPARISON: 02/03/2024. TECHNIQUE: Frontal view of the chest was obtained. FINDINGS: The cardiomediastinal silhouette is stable. There is bilateral increased markings and patchy diffuse bilateral infiltrative change. There are no significant pleural effusions. The bony structures are unremarkable. XR/XR chest 1V IMPRESSION: Bilateral increased markings and patchy diffuse bilateral infiltrative change. This can be seen with edema versus atypical/residual pneumonia. The consolidation previously seen on the right has significantly cleared. The gastric tube, endotracheal tube and right central line been removed
--- NOTE | 2024-02-13 02:32 | PC.NURSE ---
Pt reports not taking antibiotics as pt is unable to obtain them.
[2024-02-13 03:09] LABS: Hematocrit 33.5 % (42.0-52.0); Hemoglobin 11.1 g/dl (14.0-18.0); Mean Corpuscular HGB Conc 33.1 g/dl (31.0-36.0); Mean Corpuscular Hemoglobin 30.5 pg (27.0-33.0); Mean Platelet Volume 11.1 fL (9.4-12.4); Platelet Count 327 X10*3/uL (160-400); Red Blood Count 3.64 X10*6/uL (4.60-5.80); Red Cell Distribution Width 14.6 % (11.0-16.0); WBC ABN SCTR FOR CBC 1; White Blood Count 22.2 X10*3/uL (4.8-10.8)
--- NOTE | 2024-02-13 03:19 | ED_ITS ---
HPI - SOB/Dyspnea General Chief Complaint: Dyspnea Stated Complaint: SOB Time Seen by Provider: 02/13/24 02:37 Source: patient Mode of arrival: ambulatory History of Present Illness HPI Narrative: 43-year-old male who has history of polysubstance abuse and was recently admitted for multifocal pneumonia, discharged on 02/08 and now returns with increasing shortness of breath and states that he did not knot picker cloth his antibiotics stating that he had no ride and he was waiting for his mother or sister to potentially pick him up which they never did, when patient was asked whether not he used illicit substances he endorses that in fact he did and when asked about method usage he states that he snorts and smokes. Related Data Home Medications ?Medication ?Instructions ?Recorded ?Confirmed acetaminophen 325 mg tablet 650 mg PO Q6H PRN pain 01/31/24 02/03/24 bupropion HCl 100 mg tablet 100 mg PO DAILY 01/31/24 02/03/24 clonazepam 1 mg tablet 1 mg PO BID PRN anxiety 01/31/24 02/03/24 gabapentin 800 mg tablet 800 mg PO TID 01/31/24 02/03/24 hydroxyzine HCl 25 mg tablet 25 mg PO TID PRN Anxiety 01/31/24 02/03/24 ibuprofen 600 mg tablet 600 mg PO Q6H PRN pain 01/31/24 02/03/24 Previous Rx's ?Medication ?Instructions ?Recorded levofloxacin 750 mg tablet 750 mg PO Q24H #2 tabs 02/09/24 azithromycin 500 mg tablet 500 mg PO DAILY 7 days #7 tabs 02/11/24 (Zithromax) Allergies Allergy/AdvReac Type Severity Reaction Status Date / Time ibuprofen [From MOTRIN] Allergy Severe BLEEDING Verified 02/13/24 02:27 ULCER Review of Systems 2 Review of Systems: Pertinent positives and negatives as stated in HPI PMFSH Past Medical History Source: nursing notes reviewed Medical History Pneumonitis Multifocal pneumonia Polysubstance abuse Surgical History H/O tooth extraction Family History Family History Paternal Grandfather Prostate cancer Social History Social History Household Members: Unknown / Unable to assess Housing: Homeless Housing Other:: was in place for treatment unable to recall Unable to assess alcohol history related to: Refusing to respond Alcohol intake: current Alcohol intake frequency: a few times a week Alcohol type: beer Patient Tobacco Use Status: Current everyday Tobacco user Tobacco use type: Cigarette and Smokeless Tobacco Cigarette Packs Per Day: 2 Cigarettes Per Day: 40.0 Years Smoked: 30 Smoked in Last 30 Days: Yes e-Cigarette/Vaping Use: Currently Using Second Hand Smoke Exposure: Yes Use of substances other than those prescribed or required for medical reasons: Yes Substance Use Type: Prescription Drugs Substance Use Frequency: Chronic Longstanding Last Used Substance: Just Prior to Admission Any prior treatment program specific to substance use: No Advance Directives: No Advance Directives Information Provided: No Do you have a plan to hurt others: No Plan service: No Physical Exam 2 Vital Signs: Vital Signs: Last Vital Signs Temp 98 F 02/13/24 03:54 Pulse 91 02/13/24 03:54 Resp 16 02/13/24 03:54 BP 115/63 02/13/24 03:54 Pulse Ox 95 02/13/24 03:54 O2 Del Method Nasal Cannula 02/13/24 03:54 O2 Flow Rate 2 02/13/24 03:54 BMI result Body Mass Index 23.7 VITAL SIGNS: Reviewed. GENERAL: Well developed, well nourished, in no acute distress. HEAD: Normocephalic/atraumatic EYES: PERRLA, EOMI EARS: Ext canals without abnormality NOSE: Nares patent bilateral OROPHARYNX: no oral lesions noted, posterior pharynx clear NECK: Supple, no adenopathy LUNGS: Tachypnea is present, decreased breath sounds bilaterally. SpO2<85> responded well to application of 2 L via nasal cannula CARDIOVASCULAR: Regular rate and rhythm without noted murmurs, no JVD or lower extremity edema. ABDOMEN: Soft, non-tender, non-distended with bowel sounds. MUSCULOSKELETAL: No tenderness, deformities, or effusions noted on gross inspection. EXTREMITIES: No cyanosis, clubbing or edema. SKIN: Inspection of the skin reveals no rashes NEUROLOGIC: Alert and oriented x 4. Strength and sensation to light touch were grossly intact x 4. Medications Administered Discontinued Medications Generic Name Dose Route Start Last Admin Trade Name Freq PRN Reason Stop Dose Admin Cefepime HCl 2 gm/ Sodium 50 mls @ 100 mls/hr 02/13/24 03:19 02/13/24 03:54 Chloride IV 02/13/24 03:48 Infused ONCE ONE Infusion Sodium Chloride 1,000 mls @ 999 mls/hr 02/13/24 04:00 02/13/24 05:37 Ns IV 02/13/24 05:00 Infused .Q1H1M RUSSELL Infusion Medical Decision Making Medical Decision Making [facility] Narrative: 0310; 43-year-old male with history and clinical presentation, DDX: Untreated pneumonia with hypoxia requiring supplemental oxygen, I suspect infection and ordered lactic acid/blood cultures/antibiotics and 1 L IV fluids. Reviewed all investigations and hematologic indices demonstrate a significant leukocytosis with stable normocytic anemia no thrombocytopenia. Chemistry indices do not demonstrate an LYNN or electrolyte/liver enzyme derangements. Chest x-ray demonstrates bilateral opacities. 0320: I discussed case with inpatient hospitalist who accepts admission. Differential Diagnosis Differential Diagnoses: The differential diagnosis associated with the presentation includes Please see the discussion above Admission/Observation Consideration of admission/observation: Escalation of care including admission/observation considered Please see the discussion above Consult Healthcare Provider Management of the patient was discussed with: Hospitalist Please see the discussion above Lab Data [facility] Lab Attestation statement: I reviewed the patient's lab results. Please see the discussion above 02/13/24 03:03 02/13/24 03:03 Labs: Lab Results 02/13/24 02/13/24 Range/Units 03:03 03:35 WBC 22.2 H (4.8-10.8) X10*3/uL RBC 3.64 L (4.60-5.80) X10*6/uL Hgb 11.1 L (14.0-18.0) g/dl Hct 33.5 L (42.0-52.0) % MCV 92.0 (80.0-98.0) fL MCH 30.5 (27.0-33.0) pg MCHC 33.1 (31.0-36.0) g/dl RDW 14.6 (11.0-16.0) % Plt Count 327 (160-400) X10*3/uL MPV 11.1 (9.4-12.4) fL Immature Gran % (Auto) Cancelled Neut % (Auto) Cancelled Lymph % (Auto) Cancelled Cherry % (Auto) Cancelled Eos % (Auto) Cancelled Baso % (Auto) Cancelled Lymph # (Auto) Cancelled Cherry # (Auto) Cancelled Eos # (Auto) Cancelled Baso # (Auto) Cancelled Abs Immat Gran (auto) Cancelled Absolute Neuts (auto) Cancelled Absolute Nucleated RBC 0.000 (0.0-0.012) X10*3/uL Nucleated RBC % (auto) 0.0 (0.0-0.2) /100WBC Neutrophils % (Manual) 76 H (45-73) % Band Neutrophils % 10 H (3-5) % Lymphocytes % (Manual) 7 L (20-40) % Monocytes % (Manual) 5 (2-11) % Eosinophils % (Manual) 2 (0-4) % Abs Neuts (Manual) 19.1 H (2.0-8.3) X10*3/uL Lymphocytes # (Manual) 1.6 (1.2-4.9) X10*3/uL Monocytes # (Manual) 1.1 (0.1-1.2) X10*3/uL Eosinophils # (Manual) 0.4 (0.0-0.4) X10*3/uL Toxic Vacuolation PRESENT Dohle Bodies PRESENT Platelet Estimate NORMAL (NORMAL) Large Platelets PRESENT Plt Morphology Comment NOTE RBC Morphology NORMAL Macrocytosis 1+ (5-14) /OIF Sodium 133 L (135-145) mmol/L Potassium 3.5 (3.3-5.1) mmol/L Chloride 99 (96-108) mmol/L Carbon Dioxide 24 (22-29) mmol/L Anion Gap 14 (12-20) BUN 15 (9-16) mg/dL Creatinine 0.72 (0.5-1.4) mg/dL Estim Creat Clear Calc 142.3 Estimated GFR > 60 Random Glucose 99 (60-115) mg/dL Lactic Acid 1.1 (0.5-2.0) mmol/L Calcium 9.0 (8.4-10.2) mg/dL Total Bilirubin 0.6 (0.0-1.0) mg/dL AST 24 (5-37) U/L ALT 25 (0-40) U/L Alkaline Phosphatase 48 (39-117) U/L Total Protein 7.2 (6.5-8.0) g/dL Albumin 3.8 (3.5-5.0) g/dL Ethyl Alcohol < 10 mg/dL Radiology Impression Discussion of test interpretation with radiology: I have reviewed the radiologist's reading. Radiologist Impression: Please see the discussion above External Record Review External record reviewed: Inpatient record, Outpatient record, Prior outpatient labs and Prior outpatient radiology Social Determinants Patient?s care significantly limited by Social Determinants of Health including: Alcoholism and drug addiction in family Critical Care Time Critical Care Time Critical Care Time: Yes Total Critical Care Time: 60 Attestation: I personally attest to this time spent taking care of the patient. Discharge Plan Discharge Clinical Impression: Multifocal pneumonia, Hypoxia, Sepsis Patient Disposition: Admitted As Inpatient
[2024-02-13 03:20] LABS: Ethanol < 10 mg/dL
[2024-02-13 03:22] LABS: Alanine Aminotransferase 25 U/L (0-40); Albumin Level 3.8 g/dL (3.5-5.0); Alkaline Phosphatase 48 U/L (39-117); Anion Gap 14 (12-20); Aspartate Amino Transferase 24 U/L (5-37); Bilirubin Total 0.6 mg/dL (0.0-1.0); Blood Urea Nitrogen 15 mg/dL (9-16); Carbon Dioxide 24 mmol/L (22-29); Chloride 99 mmol/L (96-108); Creatinine Clr Calc Pharmacy 142.3; Estimated Glomerular Filt Rate > 60; Glucose Random 99 mg/dL (60-115); Potassium 3.5 mmol/L (3.3-5.1); Sodium 133 mmol/L (135-145); Total Protein 7.2 g/dL (6.5-8.0)
[2024-02-13] MEDS: cefEPime HCl 2 GM in 0.9 % Sodium Chloride 50 ML IV ×4 (03:36→23:00)
[2024-02-13 03:41] LABS: Eosinophils Absolute Manual 0.4 X10*3/uL (0.0-0.4); Eosinophils Percent Manual 2 % (0-4); Lymphocytes Absolute Manual 1.6 X10*3/uL (1.2-4.9); Lymphocytes Percent Manual 7 % (20-40); Monocytes Absolute Manual 1.1 X10*3/uL (0.1-1.2); Monocytes Percent Manual 5 % (2-11); Neutrophils Absolute Manual 19.1 X10*3/uL (2.0-8.3); Neutrophils Percent Manual 76 % (45-73)
[2024-02-13 03:44] LABS: Band Neutrophils Percent 10 % (3-5); Large Platelet PRESENT; Macrocytosis 1+ (5-14) /OIF; Platelet Estimate NORMAL (NORMAL); Platelet Morphology Comment NOTE; RBC Morphology NORMAL
[2024-02-13 03:45] LABS: Dohle Bodies PRESENT; Toxic Vacuolation PRESENT
[2024-02-13] MEDS: 0.9 % Sodium Chloride 1,000 ML 999 ML IV (03:53)
[2024-02-13 03:56] LABS: Lactic Acid 1.1 mmol/L (0.5-2.0)
--- NOTE | 2024-02-13 05:45 | P.HPHOSP_ITS ---
History of Present Illness Date of Service: 02/13/24 Chief Complaint: Dyspnea This is a 43-year-old male with pertinent history of polysubstance use disorder, mood disorder who presents to the emergency department for evaluation of dyspnea. Patient states the dyspnea started about 2 days prior to presentation. Also has been having productive cough with yellowish/greenish sputum production. No orthopnea or PND. Patient was admitted on 02/01 when he was found unresponsive, hypoxemic, intubated and admitted to ICU due to acute distributive shock and acute hypoxemic respiratory failure due to aspiration pneumonia with a background of polysubstance use. Patient was weaned down to room air and sent home on p.o. Levaquin. He states that he had not take Levaquin when he went home. Admits using marijuana, not answering questions about IV drugs. No fever, chills, chest discomfort, palpitations, abdominal pain changes in urinary or bowel habits. In the emergency department, patient was found to be hypoxemic satting 85% on room air. Also was found to be septic. Resuscitated with IV crystalloids and given broad-spectrum antibiotics Review of Systems 2 Constitutional: Constitutional: Reports no additional constitutional complaints Cardiovascular: Cardiovascular: Reports dyspnea on exertion Respiratory: Respiratory: Reports cough and Reports dyspnea on exertion Gastrointestinal: Gastrointestinal: Reports no additional gastrointestinal complaints Genitourinary: Genitourinary: Reports no additional male genitourinary complaints [facility] Medical History Pneumonitis Multifocal pneumonia Polysubstance abuse Family History Paternal Grandfather Prostate cancer Surgical History H/O tooth extraction Social History Household Members: Unknown / Unable to assess Housing: Homeless Housing Other:: was in place for treatment unable to recall Unable to assess alcohol history related to: Refusing to respond Alcohol intake: current Alcohol intake frequency: a few times a week Alcohol type: beer Patient Tobacco Use Status: Current everyday Tobacco user Tobacco use type: Cigarette and Smokeless Tobacco Cigarette Packs Per Day: 2 Cigarettes Per Day: 40.0 Years Smoked: 30 Smoked in Last 30 Days: Yes e-Cigarette/Vaping Use: Currently Using Second Hand Smoke Exposure: Yes Use of substances other than those prescribed or required for medical reasons: Yes Substance Use Type: Prescription Drugs Substance Use Frequency: Chronic Longstanding Last Used Substance: Just Prior to Admission Any prior treatment program specific to substance use: No Advance Directives: No Advance Directives Information Provided: No Do you have a plan to hurt others: No Plan service: No Meds Allergies Allergy/AdvReac Type Severity Reaction Status Date / Time ibuprofen [From MOTRIN] Allergy Severe BLEEDING Verified 02/13/24 02:27 ULCER Home Medications ?Medication ?Instructions ?Recorded ?Confirmed ?Last Taken ?Type acetaminophen 325 mg tablet 650 mg PO Q6H PRN pain 01/31/24 02/03/24 Unknown History bupropion HCl 100 mg tablet 100 mg PO DAILY 01/31/24 02/03/24 Unknown History clonazepam 1 mg tablet 1 mg PO BID PRN anxiety 01/31/24 02/03/24 Unknown History gabapentin 800 mg tablet 800 mg PO TID 01/31/24 02/03/24 Unknown History hydroxyzine HCl 25 mg tablet 25 mg PO TID PRN Anxiety 01/31/24 02/03/24 Unknown History ibuprofen 600 mg tablet 600 mg PO Q6H PRN pain 01/31/24 02/03/24 Unknown History Physical Exam 2 Vital Signs and Narrative: Vital Signs: Last Vital Signs Temp 98 F 02/13/24 03:54 Pulse 91 02/13/24 03:54 Resp 16 02/13/24 03:54 BP 115/63 02/13/24 03:54 Pulse Ox 95 02/13/24 03:54 O2 Del Method Nasal Cannula 02/13/24 03:54 O2 Flow Rate 2 02/13/24 03:54 BMI result Body Mass Index 23.7 Middle-aged male lying in bed in mild distress on supplemental oxygen Neck supple, no JVD Regular rate and rhythm, S1-S2 heard Inspiratory crackles present Abdomen soft nontender, no guarding, no rigidity Patient is awake, alert and oriented to self, place, time and person ; no focal motor deficit Psych: Normal mood No pedal edema Results Labs 02/13/24 03:03 02/13/24 03:03 Labs: Laboratory Results - last 24 hr 02/13/24 02/13/24 03:03 03:35 MCV 92.0 MCH 30.5 MCHC 33.1 RDW 14.6 Plt Count 327 MPV 11.1 Immature Gran % (Auto) Cancelled Neut % (Auto) Cancelled Lymph % (Auto) Cancelled [place] % (Auto) Cancelled Eos % (Auto) Cancelled Baso % (Auto) Cancelled Lymph # (Auto) Cancelled [place] # (Auto) Cancelled Eos # (Auto) Cancelled Baso # (Auto) Cancelled Abs Immat Gran (auto) Cancelled Absolute Neuts (auto) Cancelled Absolute Nucleated RBC 0.000 Nucleated RBC % (auto) 0.0 Neutrophils % (Manual) 76 H Band Neutrophils % 10 H Lymphocytes % (Manual) 7 L Monocytes % (Manual) 5 Eosinophils % (Manual) 2 Abs Neuts (Manual) 19.1 H Lymphocytes # (Manual) 1.6 Monocytes # (Manual) 1.1 Eosinophils # (Manual) 0.4 Toxic Vacuolation PRESENT Dohle Bodies PRESENT Platelet Estimate NORMAL Large Platelets PRESENT Plt Morphology Comment NOTE RBC Morphology NORMAL Macrocytosis 1+ (5-14) Anion Gap 14 Estim Creat Clear Calc 142.3 Estimated GFR > 60 Random Glucose 99 Lactic Acid 1.1 Calcium 9.0 Total Bilirubin 0.6 AST 24 ALT 25 Alkaline Phosphatase 48 Total Protein 7.2 Albumin 3.8 Ethyl Alcohol < 10 Imaging Radiologist's Impressions: Impressions Chest X-Ray 02/13/24 04:02 IMPRESSION: Bilateral increased markings and patchy diffuse bilateral infiltrative change. This can be seen with edema versus atypical/residual pneumonia. The consolidation previously seen on the right has significantly cleared. The gastric tube, endotracheal tube and right central line been removed Assessment and Plan (1) Hypoxia: Status: Acute (2) Sepsis: Status: Acute (3) Multifocal pneumonia: Status: Acute Plan This is a 43-year-old male with pertinent history of polysubstance use disorder, mood disorder who presents to the emergency department for evaluation of dyspnea. #. Acute hypoxemic respiratory failure and sepsis due to multifocal pneumonia: Recent admission with hypoxemia due to aspiration pneumonia and noncompliance with p.o. antibiotics upon discharge. Resuscitated with IV crystalloids. Initiating empiric broad-spectrum antibiotics. Blood culture and sputum culture pending. Lactic acid obtained. Monitor oxygen saturation and wean as tolerated, currently on 2 L supplemental oxygen #. Mood disorder: Continue home mood stabilizers #. Polysubstance use disorder: Previously declined referrals for assistance. Med rec pending DVT prophylaxis: Lovenox Full code Admit as inpatient and will require two night minimum hospital stay for supplemental oxygen, IV antibiotics (as above), which is not possible in a lesser acute setting. Quality Stroke Does the patient have a stroke diagnosis?: No VTE Prior VTE?: No VTE Risk Level:: Medical - moderate - high VTE Device Contraindication: Treatment Not Indicated VTE Drug Contraindication: N/A - Med Ordered
[2024-02-13] MEDS: Enoxaparin Sodium 40 MG/0.4 ML SYRINGE SUBCUT (06:10)
[2024-02-13 06:33] LABS: B Type Natriuretic Peptide 12 pg/mL (<100)
[2024-02-13] MEDS: vancomycin/NS 2,000 MG/500 ML PLAST..BAG 250 MG IV (07:13)
--- NOTE | 2024-02-13 07:30 | PC.NURSE ---
patient resting quietly in bed, VSS, respirations equal and unlabored, on 2l NC. patient wakes up to RN entering room. medicated per MAR skin dry and intact
--- NOTE | 2024-02-13 08:29 | PHA.MEDREC ---
Pharmacy Consult ? Medication Reconciliation Pharmacy has completed the medication reconciliation. med rec complete using claim history and discharge from 02/11/24. Pt claims he never picked up levofloxacin from prior visit so it was left off of home med list.
--- NOTE | 2024-02-13 09:31 | PHA.PROG ---
Admission Date/Time: February 13, 2024 05:43 Indication: SEPSIS Weight in k.111 kg Adjusted body weight in Kg: [place] body weight in Kg: Obesity Dosing Indication % IBW: Serum Creatinine - Last 168 Hours 02/13/24 03:03 Creatinine 0.72 Estimated CrCl and GFR - Last 168 Hours 02/13/24 03:03 Estim Creat Clear Calc 142.3 Estimated GFR > 60 Vancomycin Loading Dose: 2000 MG Current Vancomycin Dosing Regimen: 1500 MG Q12H Vancomycin Monitoring using AUC goal of 400 - 600 range with trough as surrogate marker: NTC=498 TROUGH=16.4 Date and Time for next Vancomycin Level to be drawn: 02/14/24 @1700 Pharmacist Comments on Vancomycin Plan: Vancomycin dosing will take advantage of [employer] as a clinical decision support tool that uses Bayesian modeling to calculate individual patient's pharmacokinetic parameters and forecast the patient's drug concentration time course with the target goal AUC 24 range of 400 - 600 mg/L/hr.
--- NOTE | 2024-02-13 11:56 | MHC.SL.SWA ---
Dysphasia Diet Status: Liquid Consistency and Strategies for Safe Swallow: Liquid Intake Recommendation: Thin Liquid Intake Strategies: Unrestricted Solid Food Consistency: Dietary Recommendations: Regular Oral Medication Intake: Whole with Liquid Please contact the pharmacy regarding appropriate crushable or liquid drug formulations that are available whenever modified delivery is recommended. Compensatory Strategies and Precautions to be Taken for Safe Swallow: Sitting Upright (90 deg) Supervision While Eating and Drinking for Safe Swallow: None Needed Swallowing Recommended Treatments: Recommendation for Speech: NA:Typical Evaluation Comment: Recommend return to REGULAR SOLIDS and THIN LIQUIDS. MEDS WHOLE with LIQUID. No further SPORTS BOOK SERVER intervention indicated at this time. Please re-consult if status changes. Timeline to reassess: NA Paper Bags Sewing Machine Operator Clinican/Clinical Fellow: No Supervisory Statement: I have reviewed and agree with the student/clinical fellow's documentation: N/A Speech Language Pathologist: Otilio Simental M.A., [facility]-SPORTS BOOK SERVER
[2024-02-13 15:27] LABS: Amphetamine Screen Urine Not Detected (Not Detect); Barbiturates, Urine Not Detected (Not Detect); Benzodiazepines Screen Urine Not Detected (Not Detect); Buprenorphine Scr Not Detected (Not Detect); Cannabinoid Screen Urine POSITIVE (Not Detect); Cocaine Screen Urine Not Detected (Not Detect); Fentanyl, urine POSITIVE (Not Detect); Methadone Screen, Urine Not Detected (Not Detect); Opiate Screen Urine Not Detected (Not Detect); Oxycodone Screen Urine Not Detected (Not Detect); Phencyclidine Screen Urine Not Detected (Not Detect)
[2024-02-13] MEDS: Gabapentin 400 MG CAPSULE 800 MG PO ×2 (16:00→21:17)
--- NOTE | 2024-02-13 16:22 | PC.NURSE ---
patient has remained calm and cooperative, alert and oriented x3, laying in stretcher. patient is on 2l NC, VSS, patient ate about 25% of his lunch tray. medicated per MAR
[2024-02-13] MEDS: Acetaminophen 325 MG TABLET 650 MG PO (17:44)
--- NOTE | 2024-02-13 17:45 | PC.NURSE ---
patient alerted this RN he was having 8/10 back and lung pain, patient medicated per dec with prn tylenol
[2024-02-13] MEDS: vancomycin HCL 1,500 MG in 0.9 % Sodium Chloride 500 ML 333.33 MG IV (20:49)
[2024-02-13] MEDS: ondansetron HCL 4 MG/2 ML VIAL IVPUSH (21:16)
[2024-02-13] MEDS: clonazePAM 1 MG TABLET PO (21:17)
[2024-02-13] MEDS: Melatonin 3 MG TABLET 6 MG PO (21:17)
[2024-02-14] MEDS: cefEPime HCl 2 GM in 0.9 % Sodium Chloride 50 ML IV ×3 (04:52→21:05)
[2024-02-14] MEDS: oxyCODONE HCl Immed Release 5 MG TABLET PO ×2 (04:53→19:04)
[2024-02-14] MEDS: Enoxaparin Sodium 40 MG/0.4 ML SYRINGE SUBCUT (04:53)
[2024-02-14 05:28] LABS: MANUAL DIFF FLAG NO
[2024-02-14 05:32] LABS: Basophils Percent Auto 0.4 % (0-2); Eosinophils Absolute Auto 0.3 X10*3/uL (0.0-0.4); Imm Gran Abs Auto 0.06 X10*3/uL (0.00-0.03); Imm Gran Pct Auto 0.6 % (0.0-0.4); Lymphocytes Absolute Auto 1.5 X10*3/uL (1.2-4.9); Lymphocytes Percent Auto 13.3 % (20-40); Mean Corpuscular HGB Conc 32.4 g/dl (31.0-36.0); Mean Corpuscular Hemoglobin 30.2 pg (27.0-33.0); Monocytes Percent Auto 8.7 % (2-11); Neutrophils Absolute Auto 8.1 x10*3/uL (2.0-8.3); Platelet Count 433 X10*3/uL (160-400); Red Blood Count 3.98 X10*6/uL (4.60-5.80); Red Cell Distribution Width 14.6 % (11.0-16.0); White Blood Count 10.9 X10*3/uL (4.8-10.8)
[2024-02-14 05:49] LABS: Anion Gap 12 (12-20); Blood Urea Nitrogen 9 mg/dL (9-16); Calcium 8.9 mg/dL (8.4-10.2); Carbon Dioxide 26 mmol/L (22-29); Chloride 105 mmol/L (96-108); Creatinine Clr Calc Pharmacy 150.7; Estimated Glomerular Filt Rate > 60; Glucose Random 98 mg/dL (60-115); Potassium 3.3 mmol/L (3.3-5.1); Sodium 140 mmol/L (135-145)
[2024-02-14 06:06] VITALS: BP 135/82; PULSE 83; RESP 17; TEMP 36.7; O2SAT 98
[2024-02-14] MEDS: vancomycin HCL 1,500 MG in 0.9 % Sodium Chloride 500 ML 333.33 MG IV (08:06)
[2024-02-14] MEDS: Gabapentin 400 MG CAPSULE 800 MG PO ×3 (08:57→21:05)
[2024-02-14] MEDS: buPROPion HCL 100 MG TABLET PO (08:57)
[2024-02-14 08:58] VITALS: BP 139/86; PULSE 90; RESP 20; O2SAT 95
[2024-02-14] MEDS: 0.9 % Sodium Chloride 500 ML IV (09:52)
[2024-02-14] MEDS: iohexoL 350 MG/ML 100 ML INFUS..BTL IV (11:02)
--- NOTE | 2024-02-14 12:58 | HO.PM.IMPN ---
Subjective Subjective Date of Service: 02/14/24 Interval History: States minimal improvement in breathing since admission. No significant nursing events overnight. Continues to have pleuritic chest discomfort Review of Systems Review of Systems: Yes all other systems are reviewed and are negative Constitutional Constitutional: Reports no additional constitutional complaints Cardiovascular Cardiovascular: Reports dyspnea on exertion Respiratory Respiratory: Reports cough and Reports dyspnea on exertion Gastrointestinal Gastrointestinal: Reports no additional gastrointestinal complaints Genitourinary Genitourinary: Reports no additional male genitourinary complaints Physical Exam Vital Signs: Vital Signs: Last Vital Signs Temp 98.0 F 02/14/24 06:06 Pulse 90 02/14/24 08:58 Resp 20 02/14/24 08:58 BP 139/86 02/14/24 08:58 Pulse Ox 95 02/14/24 08:58 O2 Del Method Nasal Cannula 02/14/24 08:58 O2 Flow Rate 2 02/14/24 08:58 BMI result Body Mass Index 23.7 Middle-aged male lying in bed in mild distress on supplemental oxygen Neck supple, no JVD Regular rate and rhythm, S1-S2 heard Inspiratory crackles present Abdomen soft nontender, no guarding, no rigidity Patient is awake, alert and oriented to self, place, time and person ; no focal motor deficit Psych: Normal mood No pedal edema Objective Data Active Medications Acetaminophen (Acetaminophen 325 Mg Tablet) 650 mg PO Q6H PRN PRN Reason: Pain, Mild (Pain Scale 1-3) Last Admin: 02/13/24 17:44 Dose: 650 mg Documented By: JACQUELINE Albuterol/Ipratropium (Albuterol/Iprat 2.5/0.5mg 3 Ml Ampul.Neb) 3 ml INHALE Q4H PRN PRN Reason: Wheezing Bupropion HCl (Bupropion Hcl 100 Mg Tablet) 100 mg PO DAILY [facility] Last Admin: 02/14/24 08:57 Dose: 100 mg Documented By: BENIGNO Clonazepam (Clonazepam 1 Mg Tablet) 1 mg PO BID PRN PRN Reason: anxiety Last Admin: 02/13/24 21:17 Dose: 1 mg Documented By: MONICA Enoxaparin Sodium (Enoxaparin Sodium 40 Mg/0.4 Ml Syringe) 40 mg SUBCUT Q24H [facility] Last Admin: 02/14/24 04:53 Dose: 40 mg Documented By: MONICA Gabapentin (Gabapentin 400 Mg Capsule) 800 mg PO TID [facility] Last Admin: 02/14/24 08:57 Dose: 800 mg Documented By: BENIGNO Hydroxyzine HCl (Hydroxyzine Hcl 25 Mg Tablet) 25 mg PO TID PRN PRN Reason: Anxiety Cefepime HCl 2 gm/ Sodium (Chloride) 50 mls @ 100 mls/hr IV Q8H [facility] Last Infusion: 02/14/24 05:38 Dose: Infused Documented By: MONICA Vancomycin HCl 1,500 mg/ (Sodium Chloride) 500 mls @ 333.333 mls/hr IV Q12H [facility] Last Infusion: 02/14/24 09:47 Dose: Infused Documented By: CLINT Melatonin (Melatonin 3 Mg Tablet) 6 mg PO BEDTIME PRN PRN Reason: Insomnia Last Admin: 02/13/24 21:17 Dose: 6 mg Documented By: MONICA Ondansetron HCl (Ondansetron Hcl 4 Mg/2 Ml Vial) 4 mg IVPUSH Q8H PRN PRN Reason: Nausea and Vomiting Last Admin: 02/13/24 21:16 Dose: 4 mg Documented By: MONICA Oxycodone HCl (Oxycodone Hcl Immed Release 5 Mg Tablet) 5 mg PO Q3H PRN PRN Reason: Pain, Severe (Pain Scale 7-10) Last Admin: 02/14/24 04:53 Dose: 5 mg Documented By: MONICA Pharmacy Consult (Consult Rx Vancomycin Dosing) 1 each MISCELLANE DAILY PRN PRN Reason: Consult order Sodium Chloride (0.9 % Sodium Chloride Flush 3 Ml Syringe) 3 ml IVFLUSH QSHIFT [facility] Last Admin: 02/14/24 08:40 Dose: Not Given Documented By: BENIGNO Non-Admin Reason: IV Running Labs 02/14/24 04:18 02/14/24 04:18 Labs: Laboratory Results - last 24 hr 02/13/24 02/14/24 15:09 04:18 MCV 93.0 MCH 30.2 MCHC 32.4 RDW 14.6 Plt Count 433 H D MPV 12.0 Immature Gran % (Auto) 0.6 H Neut % (Auto) 74.0 H Lymph % (Auto) 13.3 L [place] % (Auto) 8.7 Eos % (Auto) 3.0 Baso % (Auto) 0.4 Lymph # (Auto) 1.5 [place] # (Auto) 1.0 Eos # (Auto) 0.3 Baso # (Auto) 0.0 Abs Immat Gran (auto) 0.06 H Absolute Neuts (auto) 8.1 Absolute Nucleated RBC 0.000 Nucleated RBC % (auto) 0.0 Anion Gap 12 Estim Creat Clear Calc 150.7 Estimated GFR > 60 Random Glucose 98 Calcium 8.9 Urine Opiates Screen Not Detected Ur Buprenorphine Scrn Not Detected Ur Oxycodone Screen Not Detected Urine Methadone Screen Not Detected Urine Fentanyl Screen POSITIVE H Ur Barbiturates Screen Not Detected Ur Phencyclidine Scrn Not Detected Ur Amphetamines Screen Not Detected U Benzodiazepines Scrn Not Detected Urine Cocaine Screen Not Detected U Marijuana (THC) Screen POSITIVE H Microbiology Microbiology Results: Microbiology 02/13/24 03:34 Blood Culture - Preliminary Blood - Venous No growth after 24 hours. 02/13/24 03:36 Blood Culture - Preliminary Blood - Venous No growth after 24 hours. 02/13/24 06:22 Gram Stain - Final Sputum - Expectorated Sputum Culture - Final Assessment and Plan (1) Hypoxia: Status: Acute Plan This is a 43-year-old male with pertinent history of polysubstance use disorder, mood disorder who presents to the emergency department for evaluation of dyspnea. #. Acute hypoxemic respiratory failure and sepsis due to multifocal pneumonia: Recent admission with hypoxemia due to aspiration pneumonia and noncompliance with p.o. antibiotics upon discharge. Continue empiric broad-spectrum antibiotics. Blood culture pending. Monitor oxygen saturation and wean as tolerated, currently on 2 L supplemental oxygen. CTA without concern for PE #. Mood disorder: Continue home mood stabilizers #. Polysubstance use disorder: Previously declined referrals for assistance. Consulted Addiction Team DVT prophylaxis: Lovenox Full code Reason for continued hospitalization: Supplemental oxygen, need 5 antibiotics Quality Stroke Does the patient have a stroke diagnosis?: No VTE Prior VTE?: No VTE Risk Level:: Medical - moderate - high VTE Device Contraindication: Treatment Not Indicated VTE Drug Contraindication: N/A - Med Ordered
[2024-02-14] MEDS: Ketorolac Tromethamine 30 MG/ML VIAL IVPUSH (13:47)
--- NOTE | 2024-02-14 14:36 | P.EN_ITS ---
Event Note Date of Service: 02/14/24 Event Note: Addiction note This is patient's 6 visit to [facility] in January all related to substance use and overdose Seen by ACS and Psychiatry during previous visits Declined any supports, MOUD etc Reported to psychiatry provider [employer] to continue use of substances This report writer reached out to CHORUS MASTER related to significant number of overdoses requiring narcan and medical admission now for pneumonia and ongoing risk of fatal overdose. Patient shows very little insight related to ongoing use Plan: -this report writer will reach out to community providers as listed in [place] -CHORUS MASTER will review case with psychiatry -? section 35 petition appropriate Time Spent With Patient Time: Total time managing care of this patient today ____ minutes.
--- NOTE | 2024-02-14 14:36 | PM.EVENT ---
Event Note Date of Service: 02/14/24 Event Note: Addiction note This is patient's 6 visit to [facility] [place] in January all related to substance use and overdose Seen by ACS and Psychiatry during previous visits Declined any supports, MOUD etc Reported to psychiatry provider [employer] to continue use of substances This aligner typewriter reached out to RETAIL ACCOUNT SPECIALIST related to significant number of overdoses requiring narcan and medical admission now for pneumonia and ongoing risk of fatal overdose. Patient shows very little insight related to ongoing use Plan: -this aligner typewriter will reach out to community providers as listed in [place] -RETAIL ACCOUNT SPECIALIST will review case with psychiatry -? section 35 petition appropriate Time Spent With Patient Time: Total time managing care of this patient today ____ minutes.
[2024-02-14] MEDS: Albuterol/Iprat 2.5/0.5MG 3 ML AMPUL.NEB INHALE (14:50)
[2024-02-14 14:51] VITALS: PULSE 103; RESP 14; O2SAT 95
[2024-02-14 17:24] VITALS: BP 154/87; PULSE 88; RESP 18; TEMP 36.9; O2SAT 97
[2024-02-14 17:42] LABS: Vancomycin Random 11.3 mcg/mL (15-20)
--- NOTE | 2024-02-14 17:54 | HE.PHANOTE ---
Re: Vanco Trough returned at 11.3 mg/L. Patient's renal function has improved. Dose increased to 1,250mg Q8H. Predicted AUC 541 mg/L, and predicted trough 15 mg/L. Checking trough after 2nd dose (02/14 at 0900), to check if he is still subtherapeutic.
[2024-02-14] MEDS: vancomycin HCL 1,250 MG in 0.9 % Sodium Chloride 250 ML 166.67 MG IV (19:07)
[2024-02-14 19:35] VITALS: BP 157/88; PULSE 95; RESP 20; TEMP 37.1; O2SAT 97
[2024-02-14] MEDS: clonazePAM 1 MG TABLET PO (21:09)
[2024-02-15] MEDS: oxyCODONE HCl Immed Release 5 MG TABLET PO ×3 (00:17→07:52)
[2024-02-15] MEDS: 0.9 % Sodium Chloride Flush 3 ML SYRINGE IVFLUSH ×2 (00:18→07:53)
[2024-02-15] MEDS: vancomycin HCL 1,250 MG in 0.9 % Sodium Chloride 250 ML 166.67 MG IV (03:37)
[2024-02-15 03:50] VITALS: BP 136/86; PULSE 87; RESP 16; TEMP 36.4; O2SAT 93
[2024-02-15] MEDS: Enoxaparin Sodium 40 MG/0.4 ML SYRINGE SUBCUT (05:03)
[2024-02-15] MEDS: cefEPime HCl 2 GM in 0.9 % Sodium Chloride 50 ML IV (05:05)
[2024-02-15] MEDS: Gabapentin 400 MG CAPSULE 800 MG PO (07:52)
[2024-02-15] MEDS: clonazePAM 1 MG TABLET PO (07:52)
[2024-02-15] MEDS: buPROPion HCL 100 MG TABLET PO (07:52)
[2024-02-15 08:00] VITALS: BP 152/81; PULSE 97; RESP 18; TEMP 36.4; O2SAT 96
[2024-02-15 09:05] LABS: MANUAL DIFF FLAG NO
[2024-02-15 09:06] LABS: Basophils Percent Auto 0.4 % (0-2); Eosinophils Absolute Auto 0.3 X10*3/uL (0.0-0.4); Eosinophils Percent Auto 3.1 % (0-4); Hematocrit 36.3 % (42.0-52.0); Hemoglobin 12.2 g/dl (14.0-18.0); Imm Gran Abs Auto 0.03 X10*3/uL (0.00-0.03); Imm Gran Pct Auto 0.4 % (0.0-0.4); Lymphocytes Absolute Auto 1.7 X10*3/uL (1.2-4.9); Lymphocytes Percent Auto 19.4 % (20-40); Mean Corpuscular HGB Conc 33.6 g/dl (31.0-36.0); Mean Corpuscular Hemoglobin 30.3 pg (27.0-33.0); Mean Corpuscular Volume 90.3 fL (80.0-98.0); Mean Platelet Volume 10.6 fL (9.4-12.4); Monocytes Absolute Auto 0.8 X10*3/uL (0.1-1.2); Monocytes Percent Auto 8.9 % (2-11); Neutrophils Absolute Auto 5.8 x10*3/uL (2.0-8.3); Neutrophils Percent Auto 67.8 % (45-73); Platelet Count 485 X10*3/uL (160-400); Red Blood Count 4.02 X10*6/uL (4.60-5.80); Red Cell Distribution Width 14.5 % (11.0-16.0); White Blood Count 8.5 X10*3/uL (4.8-10.8)
[2024-02-15 09:21] LABS: Anion Gap 11 (12-20); Blood Urea Nitrogen 5 mg/dL (9-16); Carbon Dioxide 26 mmol/L (22-29); Chloride 110 mmol/L (96-108); Creatinine Clr Calc Pharmacy 150.7; Estimated Glomerular Filt Rate > 60; Glucose Random 127 mg/dL (60-115); Potassium 3.4 mmol/L (3.3-5.1); Sodium 144 mmol/L (135-145)
[2024-02-15 09:24] LABS: Vancomycin Random 18.8 mcg/mL (15-20)
--- NOTE | 2024-02-15 09:28 | P.DS_ITS ---
DS: Providers Provider Date of Service: 02/15/24 Date of admission: 02/13/24 05:43 Primary care physician: None Physician Consults: 02/13/24 05:43 Addiction Medicine Routine Consulting Provider: Addiction Elizabeth Reason for consultation: polysubstance use disorder DS: Diagnosis Discharge Diagnosis (1) Hypoxia: Status: Acute DS: Summary Hospital Course Hospital Course: HPI: This is a 43-year-old male with pertinent history of polysubstance use disorder, mood disorder who presents to the emergency department for evaluation of dyspnea. Patient states the dyspnea started about 2 days prior to presentation. Also has been having productive cough with yellowish/greenish sputum production. No orthopnea or PND. Patient was admitted on 02/01 when he was found unresponsive, hypoxemic, intubated and admitted to ICU due to acute distributive shock and acute hypoxemic respiratory failure due to aspiration pneumonia with a background of polysubstance use. Patient was weaned down to room air and sent home on p.o. Levaquin. He states that he had not take Levaquin when he went home. Admits using marijuana, not answering questions about IV drugs. No fever, chills, chest discomfort, palpitations, abdominal pain changes in urinary or bowel habits. In the emergency department, patient was found to be hypoxemic satting 85% on room air. Also was found to be septic. Resuscitated with IV crystalloids and given broad-spectrum antibiotics Hospital course: Patient was admitted with supplemental oxygen and empiric IV antibiotics for acute hypoxemic respiratory failure and sepsis due to multifocal pneumonia. Patient was previously admitted to the hospital with pneumonia and discharged with p.o. antibiotics but was noncompliant with antibiotics. Sepsis and leukocytosis resolved prior to discharge. Patient maintaining normal oxygen saturation on room air prior to discharge. Counseled extensively regarding compliance with p.o. antibiotics upon discharge. Patient to establish care and follow-up with PCP. Addiction Team was consulted for polysubstance use disorder and patient was counseled regarding cessation. Status at Discharge Functional status at discharge: independent ambulation Overall status at discharge: patient is back to baseline Time Attestation Discharge Coordination Time (in mins): 35 minutes Quality: Safe Use of Opioids Does Pt have an Active Cancer Diagnosis on the Problem List?: No Quality: Stroke Does the patient have a stroke diagnosis?: No Physical Exam Vital Signs: Vital Signs: Last Vital Signs Temp 97.6 F 02/15/24 08:00 Pulse 97 02/15/24 08:00 Resp 18 02/15/24 08:00 BP 152/81 H 02/15/24 08:00 Pulse Ox 96 02/15/24 08:00 O2 Del Method Room Air 02/15/24 08:00 O2 Flow Rate 2 02/14/24 08:58 BMI result Body Mass Index 23.7 Middle-aged male lying in bed in mild distress on supplemental oxygen Neck supple, no JVD Regular rate and rhythm, S1-S2 heard Inspiratory crackles present Abdomen soft nontender, no guarding, no rigidity Patient is awake, alert and oriented to self, place, time and person ; no focal motor deficit Psych: Normal mood No pedal edema DS: Data Data Completed and Pending Completed studies during hospitalization [Text1]: Procedures Insertion of Endotracheal Airway into Trachea, Via Natural or Artificial Opening (02/03/24) Insertion of Infusion Device into Superior Vena Cava, Percutaneous Approach (02/03/24) Introduction of Vasopressor into Central Vein, Percutaneous Approach (02/03/24) Respiratory Ventilation, 24-96 Consecutive Hours (02/03/24) Ultrasonography of Superior Vena Cava, Guidance (02/03/24) Labs on day of discharge: Laboratory Results - last 24 hr 02/14/24 02/15/24 17:10 08:59 WBC 8.5 RBC 4.02 L Hgb 12.2 L Hct 36.3 L MCV 90.3 MCH 30.3 MCHC 33.6 RDW 14.5 Plt Count 485 H MPV 10.6 Immature Gran % (Auto) 0.4 Neut % (Auto) 67.8 Lymph % (Auto) 19.4 L [place] % (Auto) 8.9 Eos % (Auto) 3.1 Baso % (Auto) 0.4 Lymph # (Auto) 1.7 [place] # (Auto) 0.8 Eos # (Auto) 0.3 Baso # (Auto) 0.0 Abs Immat Gran (auto) 0.03 Absolute Neuts (auto) 5.8 Absolute Nucleated RBC 0.000 Nucleated RBC % (auto) 0.0 Sodium 144 Potassium 3.4 Chloride 110 H Carbon Dioxide 26 Anion Gap 11 L BUN 5 L Creatinine 0.68 Estim Creat Clear Calc 150.7 Estimated GFR > 60 Random Glucose 127 H Calcium 9.0 Random Vancomycin 11.3 L 18.8 Preliminary micro results at discharge 02/13/24 03:34 Blood Culture - Preliminary Blood - Venous No growth after 48 hours. 02/13/24 03:36 Blood Culture - Preliminary Blood - Venous No growth after 48 hours. Imaging Chest x-ray: Radiologist's impression: ITS Impressions Chest X-Ray 02/13/24 04:02 IMPRESSION: Bilateral increased markings and patchy diffuse bilateral infiltrative change. This can be seen with edema versus atypical/residual pneumonia. The consolidation previously seen on the right has significantly cleared. The gastric tube, endotracheal tube and right central line been removed Chest CTA 02/14/24 11:14 IMPRESSION: Technically limited study due to suboptimal contrast bolus timing and motion artifact. No central pulmonary arterial filling defect. While there has been interval improvement in previously demonstrated right upper lobe and right lower lobe consolidation, there are new innumerable irregular pulmonary nodules involving all 5 lobes measuring up to 1.5 cm. Interval increase in mediastinal bilateral hilar lymphadenopathy. Small right pleural effusion. Trace left pleural effusion. VTE: indeterminate Discharge Plan Discharge Anticipated Discharge Date/Time: 02/15/24 09:22 Patient Disposition: Home, Self-Care Discharge Diagnosis: Acute hypoxemic respiratory failure and sepsis due to multifocal pneumonia Referrals: Physician,None [Primary Care Provider] - 1 Week Discharge Medications: New doxycycline hyclate 100 mg capsule 100 mg PO BID 10 Days Qty: 20 0RF levofloxacin 750 mg tablet 750 mg PO DAILY 10 Days Qty: 10 0RF Continued acetaminophen 325 mg tablet 650 mg PO Q6H PRN (Reason: pain) clonazepam 1 mg tablet 1 mg PO BID PRN (Reason: anxiety) bupropion HCl 100 mg tablet 100 mg PO DAILY gabapentin 800 mg tablet 800 mg PO TID hydroxyzine HCl 25 mg tablet 25 mg PO TID PRN (Reason: Anxiety) ibuprofen 600 mg tablet 600 mg PO Q6H PRN (Reason: pain) Discharge Orders: Discharge Order (Routine); Ordered 02/15/24 Ordered By: Dominic Preston Diet: Advance to usual diet Activity on Discharge: As tolerated Stand Alone Forms: Patient Portal Discharge page Print Language: Citizen Of [place] Care Plan Goals: Establish care and follow-up with PCP Health Concerns: Multifocal pneumonia Polysubstance use disorder Plan of Treatment: Doxycycline 100 mg b.i.d. x 10 days Levofloxacin 750 mg daily x 10 days Assessment: As above
--- NOTE | 2024-02-15 09:32 | MHC.CM.PN ---
Addendum entered by Samantha Leyva 02/15/24 16:01: PT WAS SET UP WITH [facility] AT 1:30 PM PT AWARE. Original Note: CM MET WITH PT AT BEDSIDE. PT HOMELESS AND DECLINES HALF-WAY/DETOX. +HCP NO PCP, [facility] PROVIDED. PT WILL GET SCRIPT FOR ABT SENT TO [facility]. DP: PT HAS BEEN MEDICALLY CLEARED FOR DC. PT WILL DC TO [address] [place] [address] VIA [facility] AT 12: 30. RN AWARE.
--- NOTE | 2024-02-15 09:34 | HE.PHANOTE ---
RE: jonathano Random on 02/14 came back at 18.8 mg/L; decreased dose to 1000mg Q8H with predicted AUC of 444, trough of 12.2. Previous predicted level with 1250mg Q8H was 15.5 so it may come back higher. Next level to be drawn 02/15 @0900
[2024-02-15] MEDS: vancomycin HCL 1,000 MG in 0.9 % Sodium Chloride 250 ML 270 MG IV (11:13)
--- NOTE | 2024-02-15 15:40 | PM.EVENT ---
Event Note Date of Service: 02/15/24 Event Note: Addiction note This commercial lines underwriter attempted to meet with patient earlier in the day and he was in the shower Upon return to room later in the day, patient had been discharged. Plan to call providers, however upon reviewing [facility], prescriptions have come from providers in acute treatment settings and not community treatment providers. Plan: restrictive preparation operator to call patient tmrw to check in Time Spent With Patient Time: Total time managing care of this patient today ____ minutes.
== END 2024-02-15 13:27 | disposition home or self-care (01) | DRG 720 ==
LOC: HO.ED 03:58 → HO.EDOVER 05:47 → HO.S3 02-14 15:30
PROVIDERS: Admitting Provider Student in an Organized Health Care Education/Training Program; Emergency Provider Student in an Organized Health Care Education/Training Program; Visit Provider Student in an Organized Health Care Education/Training Program
DX: A41.9 Sepsis, unspecified organism (principal); J96.01 Acute respiratory failure with hypoxia; J18.9 Pneumonia, unspecified organism; F39 Unspecified mood [affective] disorder; F19.90 Other psychoactive substance use, unspecified, uncomplicated; Z87.01 Personal history of pneumonia (recurrent); Z87.891 Personal history of nicotine dependence; Z79.899 Other long term (current) drug therapy
CPT/HCPCS: 36415; 71045; 71275; 80048; 80053; 80202; 80307; 83605; 83880; 85007; 85025; 85027; 87040; 87205; 92610; 94640; 99285; J0692; J1650; J1885; J2405; J3370; J3371; Q9967

== ENCOUNTER → 2024-02-13 05:43 | Outpatient (BNV) | payer OTHER, SELFPAY | PROVIDERS: Admitting Provider Student in an Organized Health Care Education/Training Program; Emergency Provider Student in an Organized Health Care Education/Training Program; Visit Provider Student in an Organized Health Care Education/Training Program | DX: J96.01 Acute respiratory failure with hypoxia (principal) | CPT/HCPCS: 99223; 99232; 99239 ==

== ENCOUNTER 2024-02-18 18:51 | Emergency (ER) | payer OTHER, SELFPAY ==
--- NOTE | 2024-02-18 | ECG_ITS ---
Test Reason : SOB Blood Pressure : / mmHG Vent. Rate : 095 BPM Atrial Rate : 095 BPM P-R Int : 138 ms QRS Dur : 090 ms QT Int : 390 ms P-R-T Axes : 077 062 061 degrees QTc Int : 490 ms Normal sinus rhythm Prolonged QT Abnormal ECG When compared with ECG of 03-FEB-2024 08:41, No significant change was found Referred By: Generic ED Physician Electronically Signed By:KRISTINA CARRILLO
--- NOTE | ~2024-02-18 | XR_ITS ---
EXAMINATION: XR CHEST CLINICAL INFORMATION: Evaluate for pneumothorax COMPARISON: Frontal view 02/13/24 TECHNIQUE: Frontal view of the chest was obtained. FINDINGS: Cardiac size within normal limits. The central vessels are prominent. There are large lung volumes. There are some airspace and reticular opacities in the right upper lung. Overall aeration is improved. No pneumothorax is demonstrated XR/XR chest 1V IMPRESSION: Large lung volumes with persistent opacity in the right upper lung. Overall aeration is improved. No pneumothorax demonstrated
[2024-02-18 18:59] VITALS: BP 140/88; PULSE 109; O2SAT 98
[2024-02-18 19:07] VITALS: BP 156/99; PULSE 100; RESP 18; TEMP 36.8; O2SAT 96; BMI 23.7
--- NOTE | 2024-02-18 19:24 | PC.NURSE ---
pt biba from home, a&ox4, respirations even and unlabored, reports increasing shortness of breath x1 week, reports coughing today and hearing a pop with worsening shortness of breath. pt denies chest pain at this time. pt reports being diagnosed wiht pneumonia 2 weeks ago and has not taken antibiotics. pt sating 98--100% on room air.
[2024-02-18 19:31] LABS: MANUAL DIFF FLAG NO
--- NOTE | 2024-02-18 19:33 | ED_ITS ---
HPI - Chest Pain General Chief Complaint: Dyspnea Stated Complaint: R SIDE CHEST PAIN Time Seen by Provider: 02/18/24 19:28 Source: patient Mode of arrival: ambulatory Limitations: no limitations History of Present Illness HPI narrative: Patient 43 years old with history of polysubstance abuse, mood disorder was admitted here on 02/10 for overdose with aspiration status post intubation discharged on 02/15/2024 fall on Levaquin and doxycycline for multifocal opacities/infiltrates since discharge patient not able to get his medications says that he been coughing a lot and feel short of breath and chest tightness Related Data Home Medications ?Medication ?Instructions ?Recorded ?Confirmed acetaminophen 325 mg tablet 650 mg PO Q6H PRN pain 01/31/24 02/13/24 bupropion HCl 100 mg tablet 100 mg PO DAILY 01/31/24 02/13/24 clonazepam 1 mg tablet 1 mg PO BID PRN anxiety 01/31/24 02/13/24 gabapentin 800 mg tablet 800 mg PO TID 01/31/24 02/13/24 hydroxyzine HCl 25 mg tablet 25 mg PO TID PRN Anxiety 01/31/24 02/13/24 ibuprofen 600 mg tablet 600 mg PO Q6H PRN pain 01/31/24 02/13/24 Previous Rx's ?Medication ?Instructions ?Recorded doxycycline hyclate 100 mg capsule 100 mg PO BID 10 days #20 caps 02/15/24 levofloxacin 750 mg tablet 750 mg PO DAILY 10 days #10 tabs 02/15/24 Allergies Allergy/AdvReac Type Severity Reaction Status Date / Time ibuprofen [From MOTRIN] Allergy Severe BLEEDING Verified 02/18/24 19:08 ULCER Review of Systems 2 Review of Systems: Yes all other systems are reviewed and are negative PMFSH Past Medical History Medical History Multifocal pneumonia Pneumonitis Multifocal pneumonia Polysubstance abuse Surgical History H/O tooth extraction Family History Family History Paternal Grandfather Prostate cancer Social History Social History Household Members: None Housing: Homeless Housing Other:: was in place for treatment unable to recall Do you presently have visiting nurse or other home services: No Unable to assess alcohol history related to: Refusing to respond Alcohol intake: current Alcohol intake frequency: a few times a week Alcohol type: beer Patient Tobacco Use Status: Former Tobacco user Tobacco use type: Cigarette and Smokeless Tobacco Cigarette Packs Per Day: 2 Cigarettes Per Day: 40.0 Years Smoked: 30 Smoked in Last 30 Days: Yes e-Cigarette/Vaping Use: Currently Using Second Hand Smoke Exposure: Yes Use of substances other than those prescribed or required for medical reasons: Yes Substance Use Type: Marijuana Advance Directives: No Advance Directives Information Provided: No Do you have a plan to hurt others: No Plan service: No Physical Exam 2 Vital Signs: Vital Signs: Last Vital Signs Temp 98.2 F 02/18/24 20:48 Pulse 97 02/18/24 20:48 Resp 18 02/18/24 20:48 BP 138/70 02/18/24 20:48 Pulse Ox 98 02/18/24 20:48 O2 Del Method Room Air 02/18/24 20:48 BMI result Body Mass Index 23.7 Appearance: Alert. Oriented X3. No acute distress. Eyes: No pallor or icterus ENT: Pharynx normal. Oral Mucosa moist Neck: Normal inspection. Neck supple. CVS: Normal heart rate and rhythm. Pulses normal. Respiratory: No respiratory distress. Equal air entry bilateral, prolonged expiration crackles++ Abdomen: Soft and nontender. Bowel sounds are present, no mass palpable, no CVA tenderness Skin: Skin warm and dry. Normal skin color. Normal skin turgor. Extremities: No lower extremity edema. No calf tenderness Neuro: Oriented X 3. No motor deficit. Medications Administered Discontinued Medications Generic Name Dose Route Start Last Admin Trade Name Freq PRN Reason Stop Dose Admin Albuterol/Ipratropium 3 ml 02/18/24 22:14 02/18/24 22:38 Albuterol/Iprat 2.5/0.5mg 3 Ml Ampul.Neb INHALE 02/18/24 22:15 3 ml ONCE ONE Administration Benzonatate 200 mg 02/18/24 22:13 02/18/24 22:32 Benzonatate 100 Mg Capsule PO 02/18/24 22:14 200 mg ONCE ONE Administration Doxycycline Monohydrate 100 mg 02/18/24 22:13 02/18/24 22:32 Doxycycline Monohydrate 100 Mg Capsule PO 02/18/24 22:14 100 mg ONCE ONE Administration Levofloxacin 750 mg 02/18/24 22:13 02/18/24 22:32 Levofloxacin 750 Mg Tablet PO 02/18/24 22:14 750 mg ONCE ONE Administration Medical Decision Making Medical Decision Making [facility] Narrative: Chest x-ray showed infiltrate in the right upper lobe white counts are normal saturating 96% at room air will discharge patient home on antibiotics Levaquin and doxycycline and advised to continue albuterol inhaler and stop taking drugs Differential Diagnosis Differential Diagnoses: The differential diagnosis associated with the presentation includes Admission/Observation Consideration of admission/observation: Escalation of care including admission/observation considered Lab Data [facility] Lab Attestation statement: I reviewed the patient's lab results. 02/18/24 19:25 02/18/24 19:25 Labs: Lab Results 02/18/24 02/18/24 Range/Units 19:24 19:25 WBC 8.2 (4.8-10.8) X10*3/uL RBC 4.14 L (4.60-5.80) X10*6/uL Hgb 12.4 L (14.0-18.0) g/dl Hct 38.0 L (42.0-52.0) % MCV 91.8 (80.0-98.0) fL MCH 30.0 (27.0-33.0) pg MCHC 32.6 (31.0-36.0) g/dl RDW 14.6 (11.0-16.0) % Plt Count 535 H (160-400) X10*3/uL MPV 10.7 (9.4-12.4) fL Immature Gran % (Auto) 0.4 (0.0-0.4) % Neut % (Auto) 62.5 (45-73) % Lymph % (Auto) 23.3 (20-40) % [place] % (Auto) 8.9 (2-11) % Eos % (Auto) 4.3 H (0-4) % Baso % (Auto) 0.6 (0-2) % Lymph # (Auto) 1.9 (1.2-4.9) X10*3/uL [place] # (Auto) 0.7 (0.1-1.2) X10*3/uL Eos # (Auto) 0.4 (0.0-0.4) X10*3/uL Baso # (Auto) 0.1 (0.0-0.2) X10*3/uL Abs Immat Gran (auto) 0.03 (0.00-0.03) X10*3/uL Absolute Neuts (auto) 5.1 (2.0-8.3) x10*3/uL Absolute Nucleated RBC 0.000 (0.0-0.012) X10*3/uL Nucleated RBC % (auto) 0.0 (0.0-0.2) /100WBC PT 12.3 (11.1-13.3) SEC INR 1.0 (0.9-1.1) APTT 31.5 (26.0-36.8) SEC Sodium 142 (135-145) mmol/L Potassium 3.7 (3.3-5.1) mmol/L Chloride 107 (96-108) mmol/L Carbon Dioxide 25 (22-29) mmol/L Anion Gap 14 (12-20) BUN 4 L (9-16) mg/dL Creatinine 0.72 (0.5-1.4) mg/dL Estim Creat Clear Calc 142.3 Estimated GFR > 60 Random Glucose 98 (60-115) mg/dL Calcium 9.4 (8.4-10.2) mg/dL Total Bilirubin 0.3 (0.0-1.0) mg/dL AST 55 H (5-37) U/L ALT 38 (0-40) U/L Alkaline Phosphatase 47 (39-117) U/L Troponin I High Sens < 2.7 D (<3.5-35.0) ng/L B-Natriuretic Peptide < 10 (<100) pg/mL Total Protein 7.4 (6.5-8.0) g/dL Albumin 4.0 (3.5-5.0) g/dL Influenza Type A (PCR) NEGATIVE (Negative) Influenza Type B (PCR) NEGATIVE (Negative) RSV RNA Qual (PCR) NEGATIVE (Negative) SARS-CoV-2 RNA (RT-PCR) NEGATIVE (Negative) Independent Interpretation I performed an independent interpretation of an: Plain X-Ray Radiology Impression Discussion of test interpretation with radiology: I have reviewed the radiologist's reading. Radiologist Impression: [address] [address] XRay Report Signed Patient: Kofi Samayoa MR#: [id number] : 1980 Acct:[id number] Age/Sex: 43 / M ADM Date: 02/18/24 Loc: HO.ED Attending Dr: Ordering Physician: Leon Mock Date of Service: 02/18/24 Procedure(s): XR chest 1V Accession Number(s): [id number] cc: Leno Mock; Physician,Unknown ~ EXAMINATION: XR CHEST CLINICAL INFORMATION: Evaluate for pneumothorax COMPARISON: Frontal view 02/13/24 TECHNIQUE: Frontal view of the chest was obtained. FINDINGS: Cardiac size within normal limits. The central vessels are prominent. There are large lung volumes. There are some airspace and reticular opacities in the right upper lung. Overall aeration is improved. No pneumothorax is demonstrated XR/XR chest 1V IMPRESSION: Large lung volumes with persistent opacity in the right upper lung. Overall aeration is improved. No pneumothorax demonstrated Discharge Plan Discharge Clinical Impression: Community acquired pneumonia Patient Disposition: Home, Self-Care Prescriptions: No Action acetaminophen 325 mg tablet 650 mg PO Q6H PRN (Reason: pain) clonazepam 1 mg tablet 1 mg PO BID PRN (Reason: anxiety) bupropion HCl 100 mg tablet 100 mg PO DAILY gabapentin 800 mg tablet 800 mg PO TID hydroxyzine HCl 25 mg tablet 25 mg PO TID PRN (Reason: Anxiety) ibuprofen 600 mg tablet 600 mg PO Q6H PRN (Reason: pain) doxycycline hyclate 100 mg capsule 100 mg PO BID 10 Days Qty: 20 0RF levofloxacin 750 mg tablet 750 mg PO DAILY 10 Days Qty: 10 0RF Print Language: Kinyarwanda
[2024-02-18 19:36] LABS: Basophils Absolute Auto 0.1 X10*3/uL (0.0-0.2); Basophils Percent Auto 0.6 % (0-2); Eosinophils Absolute Auto 0.4 X10*3/uL (0.0-0.4); Eosinophils Percent Auto 4.3 % (0-4); Hemoglobin 12.4 g/dl (14.0-18.0); Imm Gran Abs Auto 0.03 X10*3/uL (0.00-0.03); Imm Gran Pct Auto 0.4 % (0.0-0.4); Lymphocytes Absolute Auto 1.9 X10*3/uL (1.2-4.9); Lymphocytes Percent Auto 23.3 % (20-40); Mean Corpuscular HGB Conc 32.6 g/dl (31.0-36.0); Mean Corpuscular Volume 91.8 fL (80.0-98.0); Mean Platelet Volume 10.7 fL (9.4-12.4); Monocytes Absolute Auto 0.7 X10*3/uL (0.1-1.2); Monocytes Percent Auto 8.9 % (2-11); Neutrophils Absolute Auto 5.1 x10*3/uL (2.0-8.3); Neutrophils Percent Auto 62.5 % (45-73); Platelet Count 535 X10*3/uL (160-400); Red Blood Count 4.14 X10*6/uL (4.60-5.80); Red Cell Distribution Width 14.6 % (11.0-16.0); White Blood Count 8.2 X10*3/uL (4.8-10.8)
[2024-02-18 19:41] LABS: Prothrombin Time 12.3 SEC (11.1-13.3)
[2024-02-18 19:44] LABS: Partial Thromboplastin Time 31.5 SEC (26.0-36.8)
[2024-02-18 19:54] LABS: Alanine Aminotransferase 38 U/L (0-40); Alkaline Phosphatase 47 U/L (39-117); Anion Gap 14 (12-20); Aspartate Amino Transferase 55 U/L (5-37); Bilirubin Total 0.3 mg/dL (0.0-1.0); Blood Urea Nitrogen 4 mg/dL (9-16); Calcium 9.4 mg/dL (8.4-10.2); Carbon Dioxide 25 mmol/L (22-29); Chloride 107 mmol/L (96-108); Creatinine Clr Calc Pharmacy 142.3; Estimated Glomerular Filt Rate > 60; Glucose Random 98 mg/dL (60-115); Potassium 3.7 mmol/L (3.3-5.1); Sodium 142 mmol/L (135-145); Total Protein 7.4 g/dL (6.5-8.0)
[2024-02-18 19:55] LABS: B Type Natriuretic Peptide < 10 pg/mL (<100)
[2024-02-18 20:15] LABS: Troponin-I High Sensitivity < 2.7 ng/L (<3.5-35.0)
[2024-02-18 20:20] LABS: Influenza A PCR NEGATIVE (Negative); Influenza B PCR NEGATIVE (Negative); Resp Syncy Virus RNA Qual PCR NEGATIVE (Negative); SARS COV2 PCR INHOUSE NEGATIVE (Negative)
[2024-02-18 20:48] VITALS: BP 138/70; PULSE 97; RESP 18; TEMP 36.8; O2SAT 98
[2024-02-18] MEDS: levoFLOXacin 750 MG TABLET PO (22:32)
[2024-02-18] MEDS: Doxycycline Monohydrate 100 MG CAPSULE PO (22:32)
[2024-02-18] MEDS: Benzonatate 100 MG CAPSULE 200 MG PO (22:32)
--- NOTE | 2024-02-18 22:33 | PC.NURSE ---
pt medicated per mar, tolerated per mar.
[2024-02-18] MEDS: Albuterol/Iprat 2.5/0.5MG 3 ML AMPUL.NEB INHALE (22:38)
[2024-02-18 23:26] VITALS: BP 138/70; PULSE 97; RESP 18; TEMP 36.8; O2SAT 98
== END 2024-02-18 23:27 | disposition home or self-care (01) ==
PROVIDERS: Physician Assistant; Emergency Provider Internal Medicine
DX: J18.9 Pneumonia, unspecified organism (principal); Z59.02 Unsheltered homelessness
CPT/HCPCS: 0241U; 36415; 71045; 80053; 83880; 84484; 85025; 85610; 85730; 93005; 99284; 99285

== ENCOUNTER → 2024-02-18 19:29 | Outpatient (BNV) | payer OTHER, SELFPAY | PROVIDERS: Emergency Provider Internal Medicine; Visit Provider Internal Medicine | DX: R06.02 Shortness of breath (principal); I45.81 Long QT syndrome | CPT/HCPCS: 93010 ==